=== PATIENT | female | born 1940 | race Caucasian/White ===

== ENCOUNTER → 2016-04-19 | Outpatient (REF) | payer MEDICARE, OTHER ==
[~2016-04-19] MED LIST: ASPI81TA85 PO; CIPR500S PO; FLAG500T PO; IRON65TA PO; MULT1TAB8 PO; NORC5TAB PO; RANI15TA PO; VITA100066 PO
[2016-04-19 12:46] LABS: ALBUMIN 4.3 GM/DL (3.2-5.2); ALBUMIN/GLOBULIN RATIO 1.54 (1.00-1.93); ALKALINE PHOSPHATASE 72 U/L (45-117); ALT/SGPT 26 U/L (12-78); ANION GAP 9 MEQ/L (8-16); AST/SGOT 15 U/L (15-37); BILIRUBIN,TOTAL 0.4 MG/DL (0.2-1.0); BLOOD UREA NITROGEN 14 MG/DL (7-18); CALCIUM LEVEL 9.3 MG/DL (8.8-10.2); CARBON DIOXIDE LEVEL 28 MEQ/L (21-32); CHLORIDE LEVEL 107 MEQ/L (98-107); CHOLESTEROL LEVEL 243 MG/DL (<200); CREATININE FOR GFR 0.69 MG/DL (0.55-1.02); GLOMERULAR FILTRATION RATE > 60.0 (>39); GLUCOSE, FASTING 106 MG/DL (83-110); POTASSIUM SERUM 4.5 MEQ/L (3.5-5.1); SODIUM LEVEL 144 MEQ/L (136-145); TOTAL PROTEIN 7.1 GM/DL (6.4-8.2); TRIGLYCERIDES LEVEL 437 MG/DL (<150)
== END ==
LOC: M LABDRAW1 11:48
PROVIDERS: ATTEND Physician Assistant
DX: R73.01 Impaired fasting glucose (principal); E78.2 Mixed hyperlipidemia

== ENCOUNTER → 2016-07-13 | Outpatient (REF) | payer MEDICARE, OTHER ==
[~2016-07-13] MED LIST changes: +NORC1TAB4 PO; -NORC5TAB PO
[2016-07-13 13:02] LABS: ALBUMIN 4.1 GM/DL (3.2-5.2); ALBUMIN/GLOBULIN RATIO 1.32 (1.00-1.93); ALKALINE PHOSPHATASE 74 U/L (45-117); ALT/SGPT 32 U/L (12-78); ANION GAP 7 MEQ/L (8-16); AST/SGOT 16 U/L (15-37); BILIRUBIN,TOTAL 0.4 MG/DL (0.2-1.0); BLOOD UREA NITROGEN 11 MG/DL (7-18); CALCIUM LEVEL 8.7 MG/DL (8.8-10.2); CARBON DIOXIDE LEVEL 28 MEQ/L (21-32); CHLORIDE LEVEL 107 MEQ/L (98-107); CHOLESTEROL LEVEL 172 MG/DL (<200); GLOMERULAR FILTRATION RATE > 60.0 (>39); GLUCOSE, FASTING 100 MG/DL (83-110); POTASSIUM SERUM 4.1 MEQ/L (3.5-5.1); SODIUM LEVEL 142 MEQ/L (136-145); TOTAL PROTEIN 7.2 GM/DL (6.4-8.2); TRIGLYCERIDES LEVEL 273 MG/DL (<150)
== END ==
LOC: M LABDRAW1 12:06
PROVIDERS: ATTEND Physician Assistant
DX: E78.2 Mixed hyperlipidemia (principal)

== ENCOUNTER → 2016-08-06 | Outpatient (CLI) | payer MEDICARE, OTHER ==
--- NOTE | 2016-08-06 16:27 | REPMRS ---
Patient History The patient states she has not had a clinical breast exam in over a year. Patient is postmenopausal and is nulliparous. No known family history of cancer. Digital Woman Screen Mammo: August 06, 2016 - Exam #: [id number] Bilateral CC and MLO view(s) were taken. Technologist: Waleska Lu, Technologist Prior study comparison: July 01, 2015, digital woman screen mammo performed at [facility]. June 29, 2014, digital woman screen mammo performed at [facility]. FINDINGS: The breast tissue is heterogeneously dense. This may lower the sensitivity of mammography. There has been no change in the appearance of the mammogram from the prior studies. There is a moderate amount of residual fibroglandular tissue which is fairly symmetric. There is no interval development of dominant mass, areas of architectural distortion, or clustered microcalcification typical of malignancy. ASSESSMENT: BI-RADS/ACR category 1 mammogram. Negative. Recommendation Routine screening mammogram in 1 year (for women over age 40). This mammogram was interpreted with the aid of an FDA-approved computer-aided dectection system. Electronically Signed By: Arik Calvillo MD 08/06/16 7197
== END ==
LOC: M WHC 14:26
PROVIDERS: ATTEND Physician Assistant
DX: Z12.31 Encounter for screening mammogram for malignant neoplasm of breast (principal)

== ENCOUNTER → 2016-11-21 | Outpatient (CLI) | payer MEDICARE, OTHER ==
--- NOTE | 2016-11-23 09:41 | DEXA ---
AP SPINE L1 - L4 1.146 -0.4 1.4 LT FEMUR TOTAL 0.862 -1.2 0.7 RT FEMUR TOTAL 0.810 -1.6 0.2 TOTAL BODY TOTAL OTHER DUAL FEMUR FRAX* ASSESSMENT Risk factors: Not done. 10 year probability of fracture Major osteoporotic fracture % Hip fracture % COMMENTS: Normal bone densitometry of the spine. There is low bone density of the left hip. There is osteoporosis of the right hip. The decreased density of the spine does represent a significant change. The decreased density of the left hip does represent a significant change. The decreased density of the right hip does represent a significant change. The density of the spine has increased 4.3% since the initial exam on 1998. The spine density has decreased 3.6% since the most recent exam on 06/18/2013. The density of the left hip has decreased 10.0% since the initial exam on 1998. The density of the left hip has decreased 2.5% since the most recent exam on . The density of the right hip has decreased 5.4% since the initial exam on 1998. The density of the right hip has decreased 3.7% since the most recent exam on . FOLLOW-UP: Recommendation for the next bone density exam: 2 years. ROME
== END ==
LOC: M WHC 10:09
PROVIDERS: ATTEND Physician Assistant
DX: Z13.820 Encounter for screening for osteoporosis (principal)

== ENCOUNTER → 2017-01-15 | Outpatient (CLI) | payer MEDICARE, OTHER ==
[2017-01-15 10:37] LABS: ALBUMIN 4.2 GM/DL (3.2-5.2); ALBUMIN/GLOBULIN RATIO 1.45 (1.00-1.93); ALKALINE PHOSPHATASE 75 U/L (45-117); ALT/SGPT 31 U/L (12-78); ANION GAP 8 MEQ/L (8-16); AST/SGOT 14 U/L (7-37); BILIRUBIN,TOTAL 0.5 MG/DL (0.2-1.0); BLOOD UREA NITROGEN 14 MG/DL (7-18); CALCIUM LEVEL 9.7 MG/DL (8.8-10.2); CARBON DIOXIDE LEVEL 27 MEQ/L (21-32); CHLORIDE LEVEL 108 MEQ/L (98-107); CHOLESTEROL LEVEL 176 MG/DL (<200); CREATININE FOR GFR 0.67 MG/DL (0.55-1.02); GLOMERULAR FILTRATION RATE > 60.0 (>39); GLUCOSE, FASTING 107 MG/DL (83-110); POTASSIUM SERUM 4.3 MEQ/L (3.5-5.1); SODIUM LEVEL 143 MEQ/L (136-145); TOTAL PROTEIN 7.1 GM/DL (6.4-8.2); TRIGLYCERIDES LEVEL 235 MG/DL (<150)
== END ==
LOC: M LABDRAW1 08:30
PROVIDERS: ATTEND Physician Assistant
DX: E78.2 Mixed hyperlipidemia (principal)

== ENCOUNTER → 2017-05-27 | Outpatient (CLI) | payer MEDICARE, OTHER | LOC: M RAD 09:52 | DX: M51.36 Other intervertebral disc degeneration, lumbar region (principal) | CPT/HCPCS: 72148 ==

== ENCOUNTER → 2017-08-01 | Outpatient (REF) | payer MEDICARE, OTHER ==
[2017-08-01 15:07] LABS: ANION GAP 5 MEQ/L (8-16); BLOOD UREA NITROGEN 18 MG/DL (7-18); CALCIUM LEVEL 9.3 MG/DL (8.8-10.2); CARBON DIOXIDE LEVEL 28 MEQ/L (21-32); CHLORIDE LEVEL 109 MEQ/L (98-107); GLOMERULAR FILTRATION RATE > 60.0 (>39); GLUCOSE, FASTING 101 MG/DL (70-100); SODIUM LEVEL 142 MEQ/L (136-145)
[2017-08-02 09:48] LABS: TOTAL 25(OH) VITAMIN D 34.7 NG/ML (30.0-100.0)
== END ==
LOC: M LAB REF 14:36
DX: M81.0 Age-related osteoporosis without current pathological fracture (principal)
CPT/HCPCS: 82306

== ENCOUNTER → 2017-08-20 | Outpatient (CLI) | payer MEDICARE, OTHER | LOC: M WHC 12:57 | DX: Z12.31 Encounter for screening mammogram for malignant neoplasm of breast (principal) | CPT/HCPCS: 77067 ==

== ENCOUNTER → 2017-11-29 | Outpatient (REF) | payer MEDICARE, OTHER ==
[2017-11-29 12:15] LABS: ALBUMIN 4.4 GM/DL (3.2-5.2); ALBUMIN/GLOBULIN RATIO 1.29 (1.00-1.93); ALKALINE PHOSPHATASE 76 U/L (45-117); ALT/SGPT 31 U/L (12-78); ANION GAP 9 MEQ/L (8-16); AST/SGOT 18 U/L (7-37); BILIRUBIN,TOTAL 0.6 MG/DL (0.2-1.0); BLOOD UREA NITROGEN 16 MG/DL (7-18); CALCIUM LEVEL 9.3 MG/DL (8.8-10.2); CARBON DIOXIDE LEVEL 26 MEQ/L (21-32); CHLORIDE LEVEL 105 MEQ/L (98-107); CHOLESTEROL LEVEL 173 MG/DL (<200); CHOLESTEROL RISK RATIO 3.203 (<5); CREATININE FOR GFR 0.79 MG/DL (0.55-1.30); FREE T4 0.96 NG/DL (0.76-1.46); GLOMERULAR FILTRATION RATE > 60.0 (>39); GLUCOSE, FASTING 107 MG/DL (70-100); HDL CHOLESTEROL 54 MG/DL (>40); LDL CHOLESTEROL 71 MG/DL (<100); NON-HDL-C 119 MG/DL; POTASSIUM SERUM 4.5 MEQ/L (3.5-5.1); SODIUM LEVEL 140 MEQ/L (136-145); TOTAL PROTEIN 7.8 GM/DL (6.4-8.2); TRIGLYCERIDES LEVEL 240 MG/DL (<150)
== END ==
LOC: M SFHCPLAZ 08:48
DX: E78.2 Mixed hyperlipidemia (principal)
CPT/HCPCS: 84443

== ENCOUNTER → 2018-03-31 | Outpatient (REF) | payer MEDICARE, OTHER ==
[~2018-03-31] MED LIST changes: +CARA1TAB6 PO; +LORA-243 PO; +PROT1TAB2 PO
[2018-03-31 14:24] LABS: BLOOD UREA NITROGEN 18 MG/DL (7-18); CALCIUM LEVEL 9.3 MG/DL (8.8-10.2); CARBON DIOXIDE LEVEL 25 MEQ/L (21-32); CHLORIDE LEVEL 107 MEQ/L (98-107); CHOLESTEROL LEVEL 206 MG/DL (<200); CHOLESTEROL RISK RATIO 3.814 (<5); CREATININE FOR GFR 0.68 MG/DL (0.55-1.30); GLOMERULAR FILTRATION RATE > 60.0 (>39); GLUCOSE, FASTING 118 MG/DL (70-100); HDL CHOLESTEROL 54 MG/DL (>40); LDL CHOLESTEROL 93 MG/DL (<100); NON-HDL-C 152 MG/DL; POTASSIUM SERUM 4.5 MEQ/L (3.5-5.1); SODIUM LEVEL 139 MEQ/L (136-145); TRIGLYCERIDES LEVEL 297 MG/DL (<150)
[2018-03-31 14:52] LABS: HEMOGLOBIN A1c 6.4 %
== END ==
LOC: M SFHCPLAZ 11:07
PROVIDERS: ATTEND Family Medicine
DX: R73.01 Impaired fasting glucose (principal); E78.2 Mixed hyperlipidemia
CPT/HCPCS: 36415; 80048; 80061; 83036; G0463

== ENCOUNTER 2018-04-09 15:10 | Emergency (ER) | payer MEDICARE, OTHER ==
[~2018-04-09] VITALS: Ht 144.8 cm; Wt 52.3 kg
[~2018-04-09 15:10] MED LIST changes: -CARA1TAB6 PO; -LORA-243 PO; -PROT1TAB2 PO
[2018-04-09] MEDS ORDERED: LORA-243 PO (15:40)
[2018-04-09] MEDS ORDERED: GI COCKTAIL 50ML BTL(HYOSCYAMINE/MAALOX/LIDOCAINE VISCOUS)(1:3:1) PO ONE (15:45)
[2018-04-09] MEDS ORDERED: PANTOPRAZOLE 40MG INJ (PROTONIX) (C9113) IV ONE (15:45)
[2018-04-09 16:12] LABS: BASO % 0.5 % (0.0-1.0); EOS # 0.1 10^3/uL (0.0-0.50); EOS % 0.9 % (0.0-3.0); HEMATOCRIT 38.3 % (36.0-47.0); HEMOGLOBIN 12.7 g/dl (12.0-15.5); LYMPH # 1.8 10^3/uL (1.5-4.5); MEAN CORPUSCULAR HGB CONC 33.2 g/dl (32.0-36.5); MEAN CORPUSCULAR VOLUME 90.5 fl (80.0-96.0); MONO # 0.5 10^3/uL (0.0-0.8); MONO % 7.2 % (0.0-5.0); NEUTROPHILS # 4.2 10^3/uL (1.8-7.7); NEUTROPHILS % 64.1 % (36.0-66.0); PLATELET COUNT, AUTOMATED 252 10^3/uL (150-450); RED BLOOD COUNT 4.23 10^6/uL (4.00-5.40); WHITE BLOOD COUNT 6.5 10^3/uL (4.0-10.0)
[2018-04-09 16:23] LABS: INR 0.96; PROTHROMBIN TIME 12.9 SECONDS (12.1-14.4)
[2018-04-09 16:24] LABS: PARTIAL THROMBOPLASTIN TIME 33.6 SECONDS (25.4-37.6)
[2018-04-09 16:47] LABS: ALBUMIN 4.6 GM/DL (3.2-5.2); ALT/SGPT 31 U/L (12-78); BILIRUBIN,DIRECT 0.1 MG/DL (0.0-0.2); BILIRUBIN,TOTAL 0.4 MG/DL (0.2-1.0); BLOOD UREA NITROGEN 16 MG/DL (7-18); CALCIUM LEVEL 9.2 MG/DL (8.8-10.2); CARBON DIOXIDE LEVEL 25 MEQ/L (21-32); CHLORIDE LEVEL 107 MEQ/L (98-107); CK-MB VALUE MASS < 1.0 NG/ML (<3.6); CPK CREATINE PHOSPHOKINASE 87 U/L (26-192); CREATININE FOR GFR 0.73 MG/DL (0.55-1.30); GLOMERULAR FILTRATION RATE > 60.0 (>39); GLUCOSE, FASTING 101 MG/DL (70-100); MB/CK RELATIVE INDEX 1.15 (< OR =4); POTASSIUM SERUM 3.9 MEQ/L (3.5-5.1); SODIUM LEVEL 140 MEQ/L (136-145); TOTAL PROTEIN 7.5 GM/DL (6.4-8.2); TROPONIN I < 0.02 NG/ML (< 0.10)
--- NOTE | 2018-04-09 17:21 | REP ---
CHEST, SINGLE VIEW: Single view of the chest is performed. COMPARISON: 02/05/2015. There is mild cardiomegaly. There is mild tortuosity of the thoracic aorta. The mediastinal silhouette is unchanged. I see no acute infiltrate or pulmonary edema. IMPRESSION: Mild cardiomegaly. No acute pulmonary disease. Electronically Signed by Arik Calvillo MD 04/09/2018 08:19 P
--- NOTE | 2018-04-09 17:23 | ECGEPIP ---
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
[2018-04-09] MEDS ORDERED: PROT1TAB2 PO (17:44)
[2018-04-09] MEDS ORDERED: CARA1TAB6 PO (17:44)
[2018-04-09 18:56] VITALS: BP 150/82
== END 2018-04-09 18:58 | disposition home or self-care (01) ==
LOC: M ED 15:10
DX: K21.0 Gastro-esophageal reflux disease with esophagitis (principal); R11.0 Nausea; I50.9 Heart failure, unspecified; E78.5 Hyperlipidemia, unspecified; G47.33 Obstructive sleep apnea (adult) (pediatric); K44.9 Diaphragmatic hernia without obstruction or gangrene; R01.1 Cardiac murmur, unspecified; Z88.8 Allergy status to other drugs, medicaments and biological substances; Z79.899 Other long term (current) drug therapy
CPT/HCPCS: 71045; 80048; 80076; 82550; 82553; 84443; 84484; 85025; 85610; 85730; 93005; 93041; 94760; 96374; 99285; C9113

== ENCOUNTER → 2018-06-18 | Outpatient (REF) | payer MEDICARE, OTHER ==
[~2018-06-18] MED LIST changes: +CARA1TAB6 PO; +LORA-243 PO; -NORC1TAB4 PO; +NORC1TAB7 PO; +PROT1TAB2 PO
[2018-06-18 16:14] LABS: CALCIUM LEVEL 9.1 MG/DL (8.8-10.2)
[2018-06-18 16:28] LABS: TOTAL 25(OH) VITAMIN D 34.2 NG/ML (30.0-100.0)
== END ==
LOC: M LABDRAWP 13:21
PROVIDERS: ATTEND Nurse Practitioner Family
DX: M81.0 Age-related osteoporosis without current pathological fracture (principal)

== ENCOUNTER → 2018-09-24 | Outpatient (REF) | payer MEDICARE, OTHER ==
[~2018-09-24] MED LIST changes: +FERR325T3 PO; +LIPI10TA PO; +PROL60SO SC
[2018-09-24 13:02] LABS: ALBUMIN 4.4 GM/DL (3.2-5.2); ALT/SGPT 37 U/L (12-78); BILIRUBIN,TOTAL 0.4 MG/DL (0.2-1.0); BLOOD UREA NITROGEN 18 MG/DL (7-18); CALCIUM LEVEL 9.7 MG/DL (8.8-10.2); CARBON DIOXIDE LEVEL 27 MEQ/L (21-32); CHLORIDE LEVEL 108 MEQ/L (98-107); CREATININE FOR GFR 0.83 MG/DL (0.55-1.30); GLOMERULAR FILTRATION RATE > 60.0 (>39); GLUCOSE, FASTING 110 MG/DL (70-100); POTASSIUM SERUM 4.3 MEQ/L (3.5-5.1); SODIUM LEVEL 141 MEQ/L (136-145); TOTAL PROTEIN 7.7 GM/DL (6.4-8.2)
== END ==
LOC: M SFHCPLAZ 09:13
PROVIDERS: ATTEND Family Medicine
DX: R73.01 Impaired fasting glucose (principal)

== ENCOUNTER 2018-09-30 06:37 | Day surgery (SDC) | payer MEDICARE, OTHER ==
[~2018-09-30] VITALS: Ht 144.8 cm; Wt 51.3 kg
[~2018-09-30 06:37] MED LIST changes: +NS 1,000 ML IV ONE
[2018-09-30] MEDS ORDERED: propofoL 200 MG/20 ML VIAL As Ordered ONE ×2 (07:43→07:53)
[2018-09-30] MEDS ORDERED: LIDOCAINE 2% INJ 100 MG/5 ML SDV (FOR ANES.) As Ordered ONE (07:43)
--- NOTE | 2018-09-30 08:00 | ROOR ---
Patient Name: Cristina Valles Procedure Date: 09/30/2018 7:33 AM Date of : 1940 Age: 78 Room: [facility] Gender: Female Note Status: Finalized Procedure: Total Colonoscopy to Cecum + Biopsy Polypectomy Indications: High risk colon cancer surveillance: Personal history of colonic polyps, Last colonoscopy: 2012 Providers: Kayode Greenberg MD Referring MD: Stephen PIKE MD Requesting Provider: Medicines: Monitored Anesthesia Care Complications: No immediate complications. Procedure: Pre-Anesthesia Assessment: - The heart rate, respiratory rate, oxygen saturations, blood pressure, adequacy of pulmonary ventilation, and response to care were monitored throughout the procedure. The Colonoscope was introduced through the anus and advanced to the cecum, identified by appendiceal orifice and ileocecal valve. The colonoscopy was performed without difficulty. The patient tolerated the procedure well. The quality of the bowel preparation was excellent. Findings: The perianal and digital rectal examinations were normal. Non-bleeding internal hemorrhoids were found during retroflexion. The hemorrhoids were small and Grade I (internal hemorrhoids that do not prolapse). Multiple sessile polyps were found in the cecum. The polyps were small in size. These polyps were removed with a jumbo cold forceps. Resection and retrieval were complete. The exam was otherwise without abnormality on direct and retroflexion views. Scattered small-mouthed diverticula were found in the recto-sigmoid colon, sigmoid colon and descending colon. Impression: - Non-bleeding internal hemorrhoids. - Multiple small polyps in the cecum, removed with a jumbo cold forceps. Resected and retrieved. - The examination was otherwise normal on direct and retroflexion views. - Diverticulosis in the recto-sigmoid colon, in the sigmoid colon and in the descending colon. - The exam was otherwise normal to the cecum. Recommendation: - Patient has a contact number available for emergencies. The signs and symptoms of potential delayed complications were discussed with the patient. Return to normal activities tomorrow. Written discharge instructions were provided to the patient. - High fiber diet. - Discharge patient to home. - Continue present medications. - Await pathology results. - Telephone GI clinic for pathology results in 1 week. - Repeat colonoscopy for symptoms only. - Return to referring physician. - The findings and recommendations were discussed with the patient's family. Kayode Greenberg MD Kayode Greenberg MD 09/30/2018 7:59:38 AM Electronically signed by Kayode Greenberg MD Number of Addenda: 0 Note Initiated On: 09/30/2018 7:33 AM Estimated Blood Loss: Estimated blood loss: none.
[2018-09-30 08:30] VITALS: BP 140/72
== END 2018-09-30 08:40 | disposition home or self-care (01) ==
LOC: M OPP 06:37
PROVIDERS: ATTEND Internal Medicine Gastroenterology
DX: D12.0 Benign neoplasm of cecum (principal); K57.30 Diverticulosis of large intestine without perforation or abscess without bleeding; K64.0 First degree hemorrhoids; Z86.010 Personal history of colon polyps

== ENCOUNTER → 2018-10-07 | Outpatient (CLI) | payer MEDICARE, OTHER ==
[~2018-10-07] MED LIST changes: -NS 1,000 ML IV ONE
--- NOTE | 2018-10-07 12:19 | REPMRS ---
Patient History The patient states she has not had a clinical breast exam in over a year. No known family history of cancer. Digital Woman Screen Mammo: October 07, 2018 - Exam #: [id number] Bilateral CC and MLO view(s) were taken. Technologist: Waleska Lu, Technologist Prior study comparison: August 20, 2017, bilateral digital woman screen mammo performed at [facility]. August 06, 2016, digital woman screen mammo performed at [facility]. July 01, 2015, digital woman screen mammo performed at [facility]. FINDINGS: The breast tissue is heterogeneously dense. This may lower the sensitivity of mammography. There is a moderate amount of heterogeneously dense fibroglandular tissue which is fairly symmetric. There is no interval development of dominant mass, architectural distortion, or grouped microcalcification typical of malignancy. There has been no change in the appearance of the mammogram from the prior studies. 3-D tomosynthesis shows no additional findings. Assessment: BI-RADS/ACR category 1 mammogram. Negative Mammogram. Recommendation Routine screening mammogram of both breasts in 1 year (for women over age 40). This patient's Lifetime Breast Cancer RIsk is estimated at 3.0 %. This mammogram was interpreted with the aid of an FDA-approved computer-aided dectection system. Electronically Signed By: Cristi Flores MD 10/07/18 6503
== END ==
LOC: M WHC 09:18
PROVIDERS: ATTEND Family Medicine
DX: Z12.31 Encounter for screening mammogram for malignant neoplasm of breast (principal)

== ENCOUNTER → 2018-12-01 | Outpatient (REF) | payer MEDICARE, OTHER ==
[2018-12-01 13:11] LABS: HEMOGLOBIN A1c 6.1 %
== END ==
LOC: M SFHCPLAZ 09:35
PROVIDERS: ATTEND Family Medicine
DX: R73.03 Prediabetes (principal)

== ENCOUNTER → 2018-12-31 | Outpatient (REF) | payer MEDICARE, OTHER ==
[2018-12-31 11:57] LABS: CALCIUM LEVEL 10.8 MG/DL (8.8-10.2)
== END ==
LOC: M LABDRAWP 09:17
PROVIDERS: ATTEND Nurse Practitioner Family
DX: M81.0 Age-related osteoporosis without current pathological fracture (principal)

== ENCOUNTER → 2019-08-20 | Outpatient (CLI) | payer MEDICARE, OTHER ==
[~2019-08-20] MED LIST changes: -ASPI81TA85 PO; +ASPI81TA86 PO
[2019-08-20 11:05] LABS: BLOOD UREA NITROGEN 19 MG/DL (7-18); CALCIUM LEVEL 9.8 MG/DL (8.8-10.2); CARBON DIOXIDE LEVEL 28 MEQ/L (21-32); CHLORIDE LEVEL 107 MEQ/L (98-107); CHOLESTEROL LEVEL 191 MG/DL (<200); CHOLESTEROL RISK RATIO 3.673 (<5); GLOMERULAR FILTRATION RATE > 60.0 (>39); GLUCOSE, FASTING 106 MG/DL (70-100); HDL CHOLESTEROL 52 MG/DL (>40); LDL CHOLESTEROL 73 MG/DL (<100); NON-HDL-C 139 MG/DL; POTASSIUM SERUM 4.6 MEQ/L (3.5-5.1); SODIUM LEVEL 141 MEQ/L (136-145); TRIGLYCERIDES LEVEL 328 MG/DL (<150)
== END ==
LOC: M PLALAB 08:13
PROVIDERS: ATTEND Physician Assistant
DX: E78.2 Mixed hyperlipidemia (principal)
CPT/HCPCS: 36415; 80048; 80061; G0463

== ENCOUNTER → 2019-12-11 | Outpatient (CLI) | payer MEDICARE, OTHER ==
--- NOTE | 2019-12-11 10:42 | REPMRS ---
Patient History No known family history of cancer. Digital Woman Screen Mammo: December 11, 2019 - Exam #: [id number] Bilateral CC and MLO view(s) were taken. Technologist: Lisa Wolff, Technologist Prior study comparison: October 07, 2018, bilateral digital woman screen mammo performed at [facility]. August 20, 2017, bilateral digital woman screen mammo performed at [facility]. August 06, 2016, digital woman screen mammo performed at [facility]. FINDINGS: There are scattered fibroglandular densities. The Volpara volumetric breast density category is:B. There has been no change in the appearance of the mammogram from the prior studies. There is a mild amount of scattered fibroglandular density which is fairly symmetric. There is no interval development of dominant mass, architectural distortion, or grouped microcalcification suggestive of malignancy. 3-D tomosynthesis shows no additional findings. Assessment: BI-RADS/ACR category 1 mammogram. Negative Mammogram. Recommendation Routine screening mammogram of both breasts in 1 year (for women over age 40). This patient's Lifetime Breast Cancer Risk is estimated at 2.6 %. This mammogram was interpreted with the aid of an FDA-approved computer-aided dectection system. Electronically Signed By: Cristi Flores MD 12/11/19 3292
== END ==
LOC: M WHC 09:48
PROVIDERS: ATTEND Family Medicine
DX: Z12.31 Encounter for screening mammogram for malignant neoplasm of breast (principal)

== ENCOUNTER → 2019-12-24 | Outpatient (REF) | payer MEDICARE, OTHER ==
[2019-12-24 14:02] LABS: ALBUMIN 4.3 GM/DL (3.2-5.2); ALT/SGPT 36 U/L (12-78); BILIRUBIN,TOTAL 0.6 MG/DL (0.2-1.0); BLOOD UREA NITROGEN 17 MG/DL (7-18); CALCIUM LEVEL 9.8 MG/DL (8.8-10.2); CARBON DIOXIDE LEVEL 29 MEQ/L (21-32); CHLORIDE LEVEL 107 MEQ/L (98-107); CHOLESTEROL LEVEL 158 MG/DL (<200); CHOLESTEROL RISK RATIO 2.724 (<5); GLOMERULAR FILTRATION RATE > 60.0 (>39); GLUCOSE, FASTING 112 MG/DL (70-100); HDL CHOLESTEROL 58 MG/DL (>40); LDL CHOLESTEROL 47 MG/DL (<100); NON-HDL-C 100 MG/DL; POTASSIUM SERUM 4.4 MEQ/L (3.5-5.1); SODIUM LEVEL 141 MEQ/L (136-145); TOTAL PROTEIN 7.7 GM/DL (6.4-8.2); TRIGLYCERIDES LEVEL 264 MG/DL (<150)
== END ==
LOC: M PLALAB 09:48
PROVIDERS: ATTEND Family Medicine
DX: E78.2 Mixed hyperlipidemia (principal); R73.01 Impaired fasting glucose

== ENCOUNTER → 2020-06-27 | Outpatient (REF) | payer MEDICARE, OTHER ==
[2020-06-27 15:38] LABS: BLOOD UREA NITROGEN 16 MG/DL (7-18); CALCIUM LEVEL 10.8 MG/DL (8.8-10.2); CARBON DIOXIDE LEVEL 28 MEQ/L (21-32); CHLORIDE LEVEL 105 MEQ/L (98-107); CREATININE FOR GFR 0.69 MG/DL (0.55-1.30); GLOMERULAR FILTRATION RATE > 60.0 (>32); GLUCOSE, FASTING 141 MG/DL (70-100); POTASSIUM SERUM 4.3 MEQ/L (3.5-5.1); SODIUM LEVEL 140 MEQ/L (136-145)
== END ==
LOC: M SFHCPLAZ 13:12 → M PLALAB 13:12
PROVIDERS: ATTEND Family Medicine
DX: R73.01 Impaired fasting glucose (principal)

== ENCOUNTER → 2020-06-27 | Outpatient (REF) | payer MEDICARE, OTHER ==
[2020-06-27 15:36] LABS: CALCIUM LEVEL 11.1 MG/DL (8.8-10.2)
[2020-06-27 15:41] LABS: TOTAL 25(OH) VITAMIN D 27.3 NG/ML (30.0-100.0)
== END ==
LOC: M PLALAB 13:13
PROVIDERS: ATTEND Internal Medicine Endocrinology, Diabetes & Metabolism
DX: E55.9 Vitamin D deficiency, unspecified (principal); R73.01 Impaired fasting glucose; Z79.899 Other long term (current) drug therapy

== ENCOUNTER → 2020-06-30 | Outpatient (REF) | payer MEDICARE, OTHER ==
[2020-06-30 13:08] LABS: HEMOGLOBIN A1c 6.3 %
[2020-06-30 13:35] LABS: BLOOD UREA NITROGEN 19 MG/DL (7-18); CALCIUM LEVEL 10.1 MG/DL (8.8-10.2); CARBON DIOXIDE LEVEL 25 MEQ/L (21-32); CHLORIDE LEVEL 109 MEQ/L (98-107); CREATININE FOR GFR 0.66 MG/DL (0.55-1.30); GLOMERULAR FILTRATION RATE > 60.0 (>32); GLUCOSE, FASTING 110 MG/DL (70-100); POTASSIUM SERUM 4.3 MEQ/L (3.5-5.1); PTH INTACT 29.3 PG/ML (18.5-88.0); SODIUM LEVEL 140 MEQ/L (136-145); TOTAL 25(OH) VITAMIN D 37.3 NG/ML (30.0-100.0)
== END ==
LOC: M SFHCPLAZ 10:11
PROVIDERS: ATTEND Family Medicine
DX: R73.01 Impaired fasting glucose (principal); E83.52 Hypercalcemia
CPT/HCPCS: 36415; 80048; 82306; 83036; 83970; G0463

== ENCOUNTER → 2020-09-05 | Outpatient (CLI) | payer MEDICARE, OTHER ==
[2020-09-05 13:41] LABS: BLOOD UREA NITROGEN 13 MG/DL (7-18); CALCIUM LEVEL 9.4 MG/DL (8.8-10.2); CARBON DIOXIDE LEVEL 31 MEQ/L (21-32); CHLORIDE LEVEL 107 MEQ/L (98-107); CREATININE FOR GFR 0.73 MG/DL (0.55-1.30); GLOMERULAR FILTRATION RATE > 60.0 (>32); GLUCOSE, FASTING 103 MG/DL (70-100); POTASSIUM SERUM 4.2 MEQ/L (3.5-5.1); SODIUM LEVEL 141 MEQ/L (136-145)
[2020-09-05 13:49] LABS: PTH INTACT 34.6 PG/ML (18.5-88.0)
== END ==
LOC: M PLALAB 10:05
PROVIDERS: ATTEND Internal Medicine Endocrinology, Diabetes & Metabolism
DX: E83.52 Hypercalcemia (principal)

== ENCOUNTER → 2020-12-16 | Outpatient (CLI) | payer MEDICARE, OTHER ==
--- NOTE | 2020-12-16 15:54 | REPMRS ---
Patient History The patient states she has not had a clinical breast exam in over a year. Patient is postmenopausal and is nulliparous. No known family history of cancer. No Hormone Replacement Therapy Patient states no breast complaints today. Patient has signed MRS History Sheet. Digital Woman Screen Mammo: December 16, 2020 - Exam #: [id number] Bilateral CC and MLO view(s) were taken. Technologist: Susan oWng Undertaker Assistant Prior study comparison: December 11, 2019, bilateral digital woman screen mammo performed at [facility]. October 07, 2018, bilateral digital woman screen mammo performed at [facility]. FINDINGS: The breast tissue is heterogeneously dense. This may lower the sensitivity of mammography. Screening. Digital screening (2D) mammography was performed bilaterally in the CC and MLO projections. Additionally, breast tomosynthesis (3D mammography) was performed bilaterally in the CC and MLO projections. Todays exam was compared to the prior exam/exams. By history, the patient has no complaints of a palpable breast abnormality or other significant breast complaints. The breasts are unchanged in size and shape.Once again, dense heterogenous fibroglandular elements are seen bilaterally in a stable appearing pattern but to such a degree that the sensitivity of the mammogram in detecting cancer is decreased. There are no fariha-soft tissue densities or spiculated masses. There is no internal architectural distortion. Once again, stable benign appearing calcifications are seen.There are no suspicious fariha-calcific clusters. Skin thickening or nipple retraction is not present. IMPRESSION: BI-RADS Category 2- Benign Findings. There is no evidence of malignant alteration of the breasts. Followup examination recommended in one year. The Volpara volumetric breast density category is C, the breasts are heterogenously dense which may obscure small masses. This mammogram was read with the assistance of [employer],an FDA approved computer aided detection system for mammography. The lifetime Tyrer-Cuzick score is 2.2 % Negative x-ray reports should not delay surgical consultation if a dominant or clinically suspicious mass is present. Not all breast cancers can be identified by mammography. Therefore, we recommend that you continue to perform regular breast self-examination and physical examination and then promptly contact your physician of any concerns or changes. Adenosis and dense breasts may obscure an underlying neoplasm. Assessment: BI-RADS/ACR category 2 mammogram. Benign Findings. Recommendation Routine screening mammogram of both breasts in 1 year. Electronically Signed By: Reji Ovalles DO 12/16/20 2334
== END ==
LOC: M WHC 15:09
PROVIDERS: ATTEND Family Medicine
DX: Z12.31 Encounter for screening mammogram for malignant neoplasm of breast (principal); Z78.0 Asymptomatic menopausal state

== ENCOUNTER → 2020-12-29 | Outpatient (CLI) | payer MEDICARE, OTHER ==
[2020-12-29 11:05] LABS: ALBUMIN 3.9 GM/DL (3.2-5.2); ALT/SGPT 41 U/L (12-78); BILIRUBIN,TOTAL 0.4 MG/DL (0.2-1.0); BLOOD UREA NITROGEN 18 MG/DL (7-18); CALCIUM LEVEL 9.5 MG/DL (8.8-10.2); CARBON DIOXIDE LEVEL 28 MEQ/L (21-32); CHLORIDE LEVEL 109 MEQ/L (98-107); CHOLESTEROL LEVEL 169 MG/DL (<200); CHOLESTEROL RISK RATIO 2.725 (<5); CREATININE FOR GFR 0.71 MG/DL (0.55-1.30); GLOMERULAR FILTRATION RATE > 60.0 (>32); GLUCOSE, FASTING 115 MG/DL (70-100); HDL CHOLESTEROL 62 MG/DL (>40); HEMOGLOBIN A1c 6.3 %; LDL CHOLESTEROL 81 MG/DL (<100); NON-HDL-C 107 MG/DL; POTASSIUM SERUM 4.9 MEQ/L (3.5-5.1); SODIUM LEVEL 140 MEQ/L (136-145); TOTAL PROTEIN 7.2 GM/DL (6.4-8.2); TRIGLYCERIDES LEVEL 129 MG/DL (<150)
== END ==
LOC: M PLALAB 09:03
PROVIDERS: ATTEND Family Medicine
DX: E78.2 Mixed hyperlipidemia (principal); R73.01 Impaired fasting glucose

== ENCOUNTER 2021-01-28 10:34 | Emergency (ER) | payer MEDICARE, OTHER ==
[~2021-01-28] VITALS: Ht 142.2 cm; Wt 51.5 kg
[2021-01-28 10:35] VITALS: BP 134/75
--- OUTSIDE RECORDS SUMMARY | 2021-01-28 10:43 | CCD | Continuity of Care Document ---
Author Author Cristina BREAUX Organization Unknown Address [address] [address] Phone [phone] Care Team Providers Care Electrician Control Equipment Name Role Phone Stephen Renae MD AUTM [phone] Kendra Underwood MD AUTM [phone] Problems Description No Information Available Social History Type Date Description Comments Sex Unknown Allergies, Adverse Reactions, Alerts Active Allergies Criticality Reaction | Severity Comments Date Aspirin Unable to assess criticality 07/14/2014 Medications Active Medications SIG Qnty Indications Ordering Provide r Date Zanaflex 4mg Tablets 1 by mouth three times a day 90tabs G57.01 Dejon Donato MD 05/16/[address] Table[address] 1 by mouth twice a day 90tabs G57.01 Dejon Donato MD 05/16/2017 Immunizations Description No Information Available Vital Signs Date Vital Result Comment 11/18/2020 9:18am Body Temperature 96.6 F Height 55 inches 4'7" Weight 112.25 lb BMI (Body Mass Index) 26.1 kg/m2 05/16/2017 3:19pm Body Temperature 98.4 F Height 56 inches 4'8" Weight 115.00 lb BMI (Body Mass Index) 25.8 kg/m2 Results Description No Information Available Procedures Date Code Description Status 11/18/2020 75238 Office/Outpatient Established Mo d MDM 30-39 Min Completed 11/18/2020 77011 X-Ray Hips Bilateral With Pelvis Minimum 5 Views Completed 11/18/2020 53839 X-Ray Spine Lumbosacral Complete Inc Bending Views Min Of 6 Completed 11/18/2020 11959 Inject/Drain Joint/Bursa Major C ompleted Medical Devices Description No Information Available Encounters Type Date Location Provider Dx Diagnosis Office Visit 11/18/2020 9:15a [place] Wendy Breaux PA-C M5 1.36 Other intervertebral disc degeneration, lumbar region M25.552 Pain in left hip M70.61 Trochanteric bursitis, right hip M70.62 Trochanteric bursitis, left hip Assessments Date Code Description Provider 11/18/2020 M51.36 Other intervertebral disc degene ration, lumbar region Wendy Breaux PA-C 11/18/2020 M25.552 Pain in left hip Wendy sesay PA-C 11/18/2020 M70.61 Trochanteric bursitis, right hip Wendy Breaux PA-C 11/18/2020 M70.62 Trochanteric bursitis, left hip Wendy Breaux PA-C Plan of Treatment Future Appointment(s):* 12/19/2020 10:45 am - Wendy Breaux PA-C at [place] 11/18/2020 - Wendy Breaux PA-C* M51.36 Other intervertebral disc degeneration, lumbar region * M25.552 Pain in left hip * M70.61 Trochanteric bursitis, right hip * M70.62 Trochanteric bursitis, left hip Functional Status Description No Information Available Mental Status Description No Information Available Referrals Description No Information Available
--- OUTSIDE RECORDS SUMMARY | 2021-01-28 10:43 | CCD ---
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 Active confirmed 029871584 Problem Hypercalcemia E83.52 Active confirmed 870162 09 Problem Impaired fasting glucose R73.01 Active confirmed 713249336 Problem Age-related osteoporosis without current pathological fracture M81.0 Active confirmed 53030773 Problem 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 Acti ve confirmed [id number] Problem COLT (obstructive sleep apnea) G47.33 Active confirm ed 63043594 ALLERGIES Allergen (clinical drug ingredient) Drug/Non Drug Allergy do cumented on EMR Reaction Allergy Type Onset Date Status Seasonal runny nose Non Drug Allergy Active ENCOUNTERS from 1940 to 2020-11-10 Encounter Location Date Provider Diagnosis [address] [phone] [place] [address] 16 Oct, 2020 Kendra Underwood Breast cancer screening by waldemar dorado Z12.31 IMMUNIZATIONS Vaccine Route Administration Date Status Influenza (High Dose 65 & up) Unknown Dec 10, 2017 Ad ministered Influenza 6mo & up Fluzone Unknown Nov 30, 2012 Admin istered Influenza 6mo & up Fluzone Unknown Dec 30, 2011 Admin istered SOCIAL HISTORY Tobacco Use: Social History Observation Description Date Details (start date - stop date) Never Smoker Sex Assigned At : Social History Observation Description Sex Assigned At Unknown Education: Question Answer Notes Level of Education: High School Audit Question Answer Notes Total Score: 0 Interpretation: Alcohol Education Language: Question Answer Notes Languages spoken: Kenyan japenesse Church: Question Answer Notes Church No judaism beliefs that would impact health care. Sexual Hx: Question Answer Notes Had sex in the last 12 months (vaginal, oral, or anal)? Yes with Men only Use protection? No Drug and Alcohol Question Answer Notes Total Score: 0 Interpretation: No problems reported Alcohol Screening: Question Answer Notes Did you have a drink containing alcohol in the past year? No Points 0 Interpretation Negative Tobacco Use: Question Answer Notes Are you a: never smoker REASON FOR REFERRAL No Information VITAL SIGNS No information MEDICATIONS Medication SIG (Take, Route, Frequency, Duration) Notes Start Da te End Date Status Oyster Calcium + D 500-125 MG-UNIT 1 tablet Orally Twice a day f or 30 day(s) Dec, Active Multi Complete - 1 tab Orally once daily for 90 days 2015 Active Tylenol 325 MG 1 tablet as needed Orally every 6 hrs Active Vitamin D-3 25 MCG (1000 UT) 1 capsule Orally Once a day for 90 day(s) Feb, Active Atorvastatin Calcium 40 MG 1 tablet Orally Once a day for 90 day s Jul, Active Prolia 60 MG/ML Subcutaneous every 6 months Ac tive Voltaren 1 % 2 g as needed Transdermal four times daily Dec, Active PROCEDURES No Information RESULTS No Results REASON FOR VISIT mammogram order MEDICAL (GENERAL) HISTORY Type Description Date Medical History Hiatal hernia, esophageal reflux Medical History Hx adenomatous colonic polyps, diverticu losis Medical History BCG vaccine in [place] - gets positive PPD as a result Medical History "Moderate Cardiomegaly" on S ER CXR, 04/15/2011 Echo 05/2011 Normal LV size and systolic function. mild Grade I diastolic dysfx. LA normal size mild aortic sclerosis; [facility], echo 07/2019 pending Medical History COLT - CPAP Medical History Impaired Fasting GLucose Medical History Hyperlipidemia Medical History Chronic Allergic Rhinnitis Medical History Osteoporosis - Dr. Deleon Medical History Foillows with REIMBURSEMENT REP annually Surgical History Left shoulder surgery 2002 Surgical History Colonoscopy 01/30, 04/06 (tubular adenoma s); normal 09/06 Surgical History Appendectomy 01/2015 Surgical History Colonoscopy - diverticulosis , small polyps; Dr. Greenberg; repeat fo rsymptoms only 09/2018 Goals Section No Information Health Concerns No Information MEDICAL EQUIPMENT No Information MENTAL STATUS No Information FUNCTIONAL STATUS No Information ASSESSMENTS Encounter Date Diagnosis Assessment Notes Treatment Notes Treatm ent Clinical Notes Oct, Breast cancer screening by mammogram (ICD-10 - Z 12.31) PLAN OF TREATMENT Medication Medication Name Sig Start Date Stop Date Voltaren 1 % 2 g as needed Transdermal four times daily 2019 Atorvastatin Calcium 40 MG 1 tablet Orally Once a day for 90 day s Jul, Future Test Test Name Order Date [facility] Jem Screening Bilateral (Ultrasound if Indicated ) (3D Mammo) 20201110 Next Appt Details Provider Name:Kendra Butler Derrellsandy, 2021-01-03 10:00:00 AM, [address], , [place], [address], Insurance Providers Payer Name Payer Address Payer Phone Insured Name Patient Relati onship to Insured Coverage Start Date Coverage End Date MEDICARE Part A and B [address] [facility] [id number] MARISSA QIU FOR LIFE [address] [employer] [id number] Jose Qiu
--- OUTSIDE RECORDS SUMMARY | 2021-01-28 10:43 | CCD | Continuity of Care Document ---
Author Author [facility] Organization Unknown Address [address] [place] [address] Phone [phone] Care Team Providers Care Fashion Intern Name Role Phone Kendra Underwood MD [facility] [phone] Problems Description No Information Available Social History Type Date Description Comments Sex Unknown Tobacco Use Start: Unknown Never Smoked Cigarettes ETOH Use Denies alcohol use Tobacco Use Start: Unknown Patient has never smoked Sun Exposure Has experienced blistering from sunburns Sun Exposure Uses 15-30 SPF Sun Exposure Has never used tanning bed Sun Exposure minimum amount of sun exposure Allergies, Adverse Reactions, Alerts Active Allergies Criticality Reaction | Severity Comments Date NKDA Unable to assess criticality 07/06/2020 Inactive Allergies Aspirin Unable to assess criticality 09/10/2007 Medications Active Medications SIG Qnty Indications Ordering Provide r Date Urea 40% Cream apply t o feet every day 85gm MATTHEW Waller 07/19/2020 Multivitamins Unknown Calcium Unknown Vitamin D Unknown Lipitor Unknown Aspirin Low Dose Unknown 00 Prolia 60mg/ml Solution Unknown Immunizations Description No Information Available Vital Signs Date Vital Result Comment 07/06/2020 10:14am BP Systolic 116 mmHg BP Diastolic 64 mmHg Weight 115.00 lb Body Temperature 96.2 F 12/02/2018 1:52pm BP Systolic 120 mmHg BP Diastolic 70 mmHg Results Description No Information Available Procedures Date Code Description Status 07/06/2020 18689 Office/Outpatient Established Mo d MDM 30-39 Min Completed 07/06/2020 68642 Destruction Of Lesions 2-14 Comp leted 07/06/2020 56579 Destruction Of Lesion First Comp leted Medical Devices Description No Information Available Encounters Type Date Location Provider Dx Diagnosis Office Visit 07/06/2020 10:30a Main Office Nehal S. LYOD Coppola L57.0 Actinic keratosis L81.4 Other melanin hyperpigmentat ion L82.1 Other seborrheic keratosis D18.01 Hemangioma of skin and subcu taneous tissue Z12.83 Encounter for screening for malignant neoplasm of skin Assessments Date Code Description Provider 09/06/2020 L98.8 Other specified disorders of the skin and subcutaneous tissue Enid Bean 09/06/2020 L98.8 Other specified disorders of the skin and subcutaneous tissue Cosmetic Consultation 07/06/2020 L57.0 Actinic keratosis Nehal WoodsMATTHEW Bain 07/06/2020 L81.4 Other melanin hyperpigmentation Nehal SMATTHEW Hernandez 07/06/2020 L82.1 Other seborrheic keratosis Minerva loo MATTHEW Epperson 07/06/2020 D18.01 Hemangioma of skin and subcutane ous tissue Nehal SMATTHEW Hernandez 07/06/2020 Z12.83 Encounter for screening for ken gnant neoplasm of skin MATTHEW Waller Plan of Treatment 07/06/2020 - Nehal WoodsMATTHEW Hernandez* L57.0 Actinic keratosis* Comments:* LN2 to 6 AK's today. Discussed that the areas treated will get red, bubble up/blister, maybe get a little weepy, form a scab then heal. Sunscreen use and sun protection discussed. Contact office if AK's fail to resolve despite treatment. After care instructions provided. * L81.4 Other melanin hyperpigmentation* Comments:* Reassurance.Sunscreen use and sun protection discussed. * L82.1 Other seborrheic keratosis* Comments:* Reassurance. * D18.01 Hemangioma of skin and subcutaneous tissue* Comments:* Reassurance. * Z12.83 Encounter for screening for malignant neoplasm of skin* Comments:* See above. * Follow up:* Yearly/PRN- [facility] Functional Status Description No Information Available Mental Status Description No Information Available Referrals Description No Information Available"
--- OUTSIDE RECORDS SUMMARY | 2021-01-28 10:43 | CCD | Continuity of Care Document ---
Author Author Cristina RUCKER MD Organization Unknown Address [address] [place] [address], [address] [address] Phone [phone] Care Team Providers Care Creative Guru Name Role Phone Stephen Renae MD AUTM [phone] Kendra Underwood MD AUTM [phone] Problems Active Problems Provider Date Osteoporosis Asia Rucker MD Onset: 02/26/2017 Vitamin D deficiency Asia Rucker MD Onset: 02/26/2017 Social History Type Date Description Comments Sex Unknown Tobacco Use Start: Unknown Never Smoked Cigarettes ETOH Use Never used alcohol Tobacco Use Start: Unknown Patient has never smoked Smoking Status Reviewed: 09/08/20 Patient has never smoked Allergies and adverse reactions Description No Known Drug Allergies Medications Active Medications SIG Qnty Indications Ordering Provide r Date Prolia 60mg/ml Soln Prefill Syring e inject once every 6 months Asia Rucker MD 07/08/19 21 Vitamin D3 1000Unit Tablets 2 tabs by mouth every day with dinner 180tabs E55.9 Brigitte Aguilar NP 01/08/2019 Lipitor 10mg Tablets 1 by mouth every day Unknown Multi For Her Capsules 1 by mouth every day Unknown Oyster Shell Calcium 500/D 500-200 Tablets 1 by mouth daily with food 180tabs Asia gastelum MD Iron (Ferrous Gluconate) 256(28Fe) mg Tablets 1 tab by mouth once daily. Unknown 0 Medications Administered in Office Medication SIG Qnty Indications Ordering Provider Date Prolia [facility]#[id number] (60mg Syringe)1MG Injection Asia Rucker MD 01/10/20 21 Prolia [facility]#[id number] (60mg Syringe)1MG Injection Asia Rucker MD 07/08/19 21 Prolia [facility]#[id number] (60mg Syringe)1MG Injection Asia Rucker MD 07/21/19 20 Prolia [facility]#[id number] (60mg Syringe)1MG Injection Brigitte Aguilar, CALCULATION REVIEWER 01/08 Prolia [facility]#[id number] (60mg Syringe)1MG Injection Brigitte Aguilar, CALCULATION REVIEWER 06/19 Prolia [facility]#[id number] (60mg Syringe)1MG Injection Brigitte Aguilar, CALCULATION REVIEWER 12/17 Immunizations Description No Information Available Vital Signs Date Vital Result Comment 09/08/2020 10:23am BP Systolic 120 mmHg BP Diastolic 70 mmHg Heart Rate 79 /min Height 55.6 inches 4'7.60" Weight 116.38 lb BMI (Body Mass Index) 26.5 kg/m2 O2 % BldC Oximetry 96 % 07/07/2020 1:26pm BP Systolic 122 mmHg BP Diastolic 78 mmHg Heart Rate 85 /min Body Temperature 97.1 F Height 55.6 inches 4'7.60" Weight 119.25 lb BMI (Body Mass Index) 27.1 kg/m2 O2 % BldC Oximetry 92 % Results Test Acquired Date Facility Test Result H/L Range Note Laboratory test finding 09/05/2020 [facility] [address] [place] [address] (315)- - PTH Intact 34.6 pg/mL Normal 18.5-88.0 Basic Metabolic Profile 09/05/2020 [facility] [address] [place] [address] (315)- - Glucose, Fasting 103 mg/dL High 70-100 Blood Urea Nitrogen 13 mg/dL Normal 7-18 Creatinine For GFR 0.73 mg/dL Normal 0.55-1.30 Glomerular Filtration Rate > 60.0 Normal >32 1 Sodium Level 141 mEq/L Normal 136-145 Potassium Serum 4.2 mEq/L Normal 3.5-5.1 Chloride Level 107 mEq/L Normal 98-107 Carbon Dioxide Level 31 mEq/L Normal 21-32 Anion Gap 3 mEq/L Low 8-16 Calcium Level 9.4 mg/dL Normal 8.8-10.2 1 Units are mL/min/1.73 m2 Chronic Kidney Disease Staging per NKF: Stage I & II GFR >=60 Normal to Mildly Decreased Stage III GFR 30-59 Moderately Decreased Stage IV GFR 15-29 Severely Decreased Stage V GFR <15 Very Little GFR Left ESRD GFR <15 on SUPERVISOR SCREEN [employer]KING Procedures Date Code Description Status 01/09/2021 68661 Office/Outpatient Established SF MDM 10-19 Min Completed 01/09/2021 61966 Injec Therapeutic Or Diagnostic Subcut Or Intramuscular Completed 09/08/2020 33780 Office/Outpatient Established Lo w MDM 20-29 Min Completed Medical Devices Description No Information Available Encounters Type Date Location Provider Dx Diagnosis Office Visit 01/09/2021 1:30p DR. Asia Rucker MD M 81.0 Age- related osteoporosis w/o current pathological fracture E55.9 Vitamin D deficiency, unspec ified E83.52 Hypercalcemia Office Visit 09/08/2020 10:30a Alexsandra Wright P M81.0 Age-related osteoporosis w/o current pathological fracture E55.9 Vitamin D deficiency, unspec ified E83.52 Hypercalcemia Assessments Date Code Description Provider 01/09/2021 M81.0 Age-related osteoporosis without current pathological fractu Asia Rucker MD 01/09/2021 E55.9 Vitamin D deficiency, unspecifie d Asia Rucker MD 01/09/2021 E83.52 Hypercalcemia Asia Rucker MD 09/08/2020 M81.0 Age-related osteoporosis without current pathological fractu Brigitte Aguilar, AMANDA 09/08/2020 E55.9 Vitamin D deficiency, unspecifie d Brigitte Aguilar, AMANDA 09/08/2020 E83.52 Hypercalcemia Brigitte arteaga, CALCULATION REVIEWER Plan of Treatment Future Appointment(s):* 07/11/2021 11:30 am - Asia Rucker MD at DR. Asia Rucker 01/09/2021 - Asia Rucker MD* M81.0 Age-related osteoporosis without current pathological fractu* New Labs:* Calcium Level, Ordered: 01/09/21 * Comments:* Her biggest risk factors being a small white female. Her fracture risk was calculated without using the fact that her mother had a hip fracture at age 98 and still shows that she should be treated although she refused at that time. Labs done 08/01/17- Vit D= 34, Calcium= 9.3, Scr= 0.70, GFR= >60Pt was receptive to starting Prolia Prolia is indicated for :--women with osteoporosis at high risk for fracture (hx of fracture or multiple risk factors for fracture)FRAX tool demonstrated she is at high risk for fracture--postmenopausal women with osteoporosis who have failed/intolerant to other therapies-- Patients- men and women with Cr cl< 35erMenopausal :status post menopausalPrevious treatments and outcomes:fosamax-gerdT scores: -2.6 Patient had a dose of Prolia in the spring. She missed her dose in the fall due to the Cintron virus pandemic. Restarted * E55.9 Vitamin D deficiency, unspecified* New Labs:* Vitamin D 25-Hydroxy, Ordered: 01/09/21 * Comments:* Started on an additional Vit D 2000 iu qd06/27/2020, calcium = 11.1, 25 OH D = 27Would prefer the vitamin D level is in the mid 50 range. However and will not encourage escalation of dose until we work out the issues with her new hypercalcemia. * E83.52 Hypercalcemia* Comments:* Hypercalcemia, new problem 06/27/2020, calcium = 11.1, 25 OH D = 275/07/2020, calcium = 10.7. It is unclear as to why her 1 time calcium was elevated and 3 days later was basically back to the normal range. She has never had hypercalcemia before. This is not a result of calcium supplementation for osteoporosis.retetsed 09/05/20- calcium= 9.4 and PTH= 34.6, Scr= 0.73, GFR= >60 - stable 12/29/20 calcium= 9.5 -stable * Follow up:* august- su/cbf- LAB- elevated calcium * All * Comments:* The risk of infection,including infections of the abdomen, urinary tract and ear. Skin problems including dermatitis, eczema and other skin infections.Low blood calcium, and osteonecrosis of the jaw.Patient reviewed the medication guide and agreed to the injection.The patient is aware to contact us with any concerns or signs of the above. Prolia (denosumab) 60 mg was injected SQ into the left upper extremityLot # [id number]: 12/17 Functional Status Description No Information Available Mental Status Description No Information Available Referrals Refer to Reason for Referral Status Appt Date Asia Rucker MD DEXA SCAN NO AUTH REQUIRED BASED ON MEDI TATA NECESSITY. LS Created [address] [place] [address], [address] [place] [address] [phone]
--- OUTSIDE RECORDS SUMMARY | 2021-01-28 10:43 | CCD | Continuity of Care Document ---
Author Author SAGE Sylviagino Organization Unknown Address [address] [place] [address], [facility] [place] [address] Phone [phone] Care Team Providers Care Rn Access Name Role Phone Stephen Renae MD AUTM [phone] Kendra Underwood MD AUTM [phone] Problems Active Problems Provider Date Aortic valve disorder Castillo Gibson MD Onset: 02/07/2017 Electrocardiogram abnormal Castillo Gibson MD Onset: 02/07 Mixed hyperlipidemia Castillo Gibson MD Onset: 02/07/2017 Overweight Castillo Gibson MD Onset: 02/07/2017 Dietary management surveillance Castillo Gibson MD Onset: 02/07/2017 Obstructive sleep apnea syndrome CORRIE Rogers Onse t: 08/17/2020 Social History Type Date Description Comments Sex Unknown ETOH Use Does not consume alcohol Tobacco Use Start: Unknown Patient has never smoked Smoking Status Reviewed: 08/17/20 Patient has never smoked Exercise Type/Frequency Plays golf twice a week In Summer Time Exercise Type/Frequency Walks daily Walking in the Mall during Winter Exercise Limitations None Allergies, Adverse Reactions, Alerts Active Allergies Criticality Reaction | Severity Comments Date Alendronate Unable to assess criticality stomach irri tated 02/06/2017 Aspirin Unable to assess criticality Stomach Irri tation 02/07/2017 Medications Active Medications SIG Qnty Indications Ordering Provide r Date Lipitor 40mg Tablets 1 by mouth every day 90tabs Ford Pelayo MD 08/21/2019 Claritin 10mg Capsules 1 by mouth daily as needed Unknown 08/17/2018 Prolia 60mg/ml Soln Prefill Syring e every 6 months Unknown 08/17/2018 Calcium 500 + D [id number] Tab lets 1 by mouth once daily Unknown 02/06/2017 Aspirin Adult Low Dose 81mg Tablet s DR 1 by mouth every day Unknown 02/06/2017 Multi Vitamin Tablets daily Unknown 02/06/2017 Immunizations Description No Information Available Vital Signs Date Vital Result Comment 08/17/2020 12:58pm Weight 115.00 lb Home Weight 115lb Height 57 inches 4'9" BMI (Body Mass Index) 24.9 kg/m2 Heart Rate 54 /min BP Systolic Sitting 122 mmHg Ra, medium cuff BP Diastolic Sitting 78 mmHg Ra, medium cuff 08/18/2019 12:42pm Weight 113.00 lb Height 57 inches 4'9" BMI (Body Mass Index) 24.5 kg/m2 Heart Rate 57 /min BP Systolic Sitting 116 mmHg adult cuff, Ra BP Diastolic Sitting 60 mmHg adult cuff, Ra Results Test Acquired Date Facility Test Result H/L Range Note BMP 06/30/2020 [facility] (315)- - Calcium Ser/Plasma Mass/Vol 10.0 Sodium 140 Carbon Dioxide Ser/Plasm 25 Chloride Serum/Plasma 109 Potassium 4.3 Glucose 110 High 70-100 Blood Urea Nitrogen 19 High 7-18 Creatinine 0.66 0.55-1.30 G F R >60.0 Procedures Date Code Description Status 11/07/2020 14919 Echocardiogram 2-D Doppler Color Completed 08/17/2020 54681 Office/Outpatient Established Mo d MDM 30-39 Min Completed 08/17/2020 01585 ECG 12-Lead Completed Medical Devices Description No Information Available Encounters Type Date Location Provider Dx Diagnosis Office Visit 08/17/2020 1:00p Main Office CORRIE Rogers I35 .1 Nonrheumatic aortic (valve) insufficiency E78.2 Mixed hyperlipidemia G47.33 Obstructive sleep apnea (teena lt) (pediatric) R94.31 Abnormal electrocardiogram [ ECG] [EKG] Z71.3 Dietary counseling and surve illance Assessments Date Code Description Provider 11/07/2020 I35.1 Nonrheumatic aortic (valve) insu fficiency ECHO 08/17/2020 I35.1 Nonrheumatic aortic (valve) insu fficiency CORRIE Rogers 08/17/2020 E78.2 Mixed hyperlipidemia CORRIE Colin 08/17/2020 G47.33 Obstructive sleep apnea (adult) (pediatric) CORRIE Rogers 08/17/2020 R94.31 Abnormal electrocardiogram [ECG] [EKG] CORRIE Rogers 08/17/2020 Z71.3 Dietary counseling and surveilla nce CORRIE Rogers Plan of Treatment Future Appointment(s):* 08/18/2021 1:00 pm - CORRIE Rogers at Main Office 08/17/2020 - CORRIE Rogers* I35.1 Nonrheumatic aortic (valve) insufficiency* Recommendations:* Repeat echocardiogram ordered for further evaluation * E78.2 Mixed hyperlipidemia* New Labs:* Lipid Panel, Ordered: 08/17/20 * BMP, Ordered: 08/17/20 * Recommendations:* Please obtain fasting labs Continue atorvastatin at the current dose * G47.33 Obstructive sleep apnea (adult) (pediatric)* Recommendations:* Reinforced the consistent use of CPAP will assist in blood pressure reduction and promote nocturnal blood pressure dipping patterns. Negative effects of hypoxia during sleep were reviewed including impaired daytime cognition and level of alertness. * R94.31 Abnormal electrocardiogram [ECG] [EKG]* Recommendations:* No further evaluation is needed at this time. * Z71.3 Dietary counseling and surveillance* Recommendations:* Recommended for patient to follow a more whole food diet. Advised patient to avoid overly processed foods and packaged foods. Advised patient to avoid sodas, juices and other liquid calories. Recommended at least 30 minutes of exercise 3 days a week. * All * Follow up:* Follow up in 1 year Functional Status Functional Condition Comment Date Status Independent with all ADL's Activ e Mental Status Description No Information Available Referrals Description No Information Available
--- OUTSIDE RECORDS SUMMARY | 2021-01-28 10:43 | CCD | Continuity of Care Document ---
Author Author Cristina BREAUX Organization Unknown Address [address] [address] Phone [phone] Care Team Providers Care Packer Name Role Phone Stephen Renae MD AUTM [phone] Kendra Underwood MD AUTM [phone] Problems Description No Information Available Social History [...] Available Procedures Date Code Description Status 11/18/2020 41323 Office/Outpatient Established Mo d MDM 30-39 Min Completed 11/18/2020 59051 X-Ray Hips Bilateral With Pelvis Minimum 5 Views Completed 11/18/2020 06383 X-Ray Spine Lumbosacral Complete Inc Bending Views Min Of 6 Completed 11/18/2020 50034 Inject/Drain Joint/Bursa Major C ompleted Medical Devices Description No Information Available Encounters Type Date Location Provider Dx Diagnosis Office Visit 11/18/2020 9:15a [facility] Wendy Breaux PA-C M5 1.36 Other intervertebral [...] 10:45 am - Wendy Breaux PA-C at [facility] 11/18/2020 - Wendy Breaux PA-C* M51.36 Other intervertebral disc degeneration, lumbar region * M25.552 Pain in left hip * M70.61 Trochanteric bursitis, right hip * M70.62 Trochanteric bursitis, left hip Functional Status Description No Information Available Mental Status Description No Information Available Referrals Description No Information Available
--- OUTSIDE RECORDS SUMMARY | 2021-01-28 10:43 | CCD | Continuity of Care Document ---
Author Author SAGE Sylviagino Organization Unknown Address [address] [place] [address], [facility] [place] [address] Phone [phone] Care Team Providers Care Agile Java Developer Name Role Phone Stephen Renae MD AUTM [phone] Kendra Underwood MD AUTM [phone] Problems Active Problems Provider Date Aortic valve [...] months Unknown 08/17/2018 Calcium 500 + D [id number] Tab lets 1 by mouth once daily [...] >60.0 Procedures Date Code Description Status 11/07/2020 05037 Echocardiogram 2-D Doppler Color Completed 08/17/2020 57184 Office/Outpatient Established Mo d MDM 30-39 Min Completed 08/17/2020 38772 ECG 12-Lead Completed Medical Devices Description No [...]
--- OUTSIDE RECORDS SUMMARY | 2021-01-28 10:43 | CCD ---
Author Author [facility] Organization [facility] Address Unknown Phone Unavailable Care Team Providers Care Hot Plate [employer]wood Press Offbearer Name Role Phone Wayne Fuentes CONSTRUCTION PROJECT ASSISTANT Unavailable Unavailable Alfredo, L Yady CONSTRUCTION PROJECT ASSISTANT Unavailable Unavailable Alfredo, L Yady CONSTRUCTION PROJECT ASSISTANT Unavailable Unavailable Alfredo, L Yady CONSTRUCTION PROJECT ASSISTANT Unavailable Unavailable Alfredo, L Yady CONSTRUCTION PROJECT ASSISTANT Unavailable Unavailable Alfredo, L Yady CONSTRUCTION PROJECT ASSISTANT Unavailable Unavailable Alfredo, L Yady CONSTRUCTION PROJECT ASSISTANT Unavailable Unavailable Alfredo, L Yady CONSTRUCTION PROJECT ASSISTANT Unavailable Unavailable Alfredo, L Yady CONSTRUCTION PROJECT ASSISTANT Unavailable Unavailable Alfredo, L Yady CONSTRUCTION PROJECT ASSISTANT Unavailable Unavailable Alfredo, L Yady CONSTRUCTION PROJECT ASSISTANT Unavailable Unavailable Alfredo, L Yady CONSTRUCTION PROJECT ASSISTANT Unavailable Unavailable Alfredo, L Yady CONSTRUCTION PROJECT ASSISTANT Unavailable Unavailable Alfredo, L Yady CONSTRUCTION PROJECT ASSISTANT Unavailable Unavailable Alfredo, L Yady CONSTRUCTION PROJECT ASSISTANT Unavailable Unavailable Alfredo, L Yady CONSTRUCTION PROJECT ASSISTANT Unavailable Unavailable Alfredo, L Yady CONSTRUCTION PROJECT ASSISTANT Unavailable Unavailable Alfredo, L Yady CONSTRUCTION PROJECT ASSISTANT Unavailable Unavailable Alfredo, L Yady CONSTRUCTION PROJECT ASSISTANT Unavailable Unavailable Alfredo, L Yady CONSTRUCTION PROJECT ASSISTANT Unavailable Unavailable Alfredo, L Yady CONSTRUCTION PROJECT ASSISTANT Unavailable Unavailable Alfredo, L Yady CONSTRUCTION PROJECT ASSISTANT Unavailable Unavailable Alfredo, L Yady CONSTRUCTION PROJECT ASSISTANT Unavailable Unavailable Alfredo, L Yady CONSTRUCTION PROJECT ASSISTANT Unavailable Unavailable Alfredo, L Yady CONSTRUCTION PROJECT ASSISTANT Unavailable Unavailable VENESSA, B KIKA CONSTRUCTION PROJECT ASSISTANT Unavailable Unavailable VENESSA, B KIKA CONSTRUCTION PROJECT ASSISTANT Unavailable Unavailable VENESSA, B KIKA CONSTRUCTION PROJECT ASSISTANT Unavailable Unavailable VENESSA, B KIKA CONSTRUCTION PROJECT ASSISTANT Unavailable Unavailable VENESSA, B KIKA CONSTRUCTION PROJECT ASSISTANT Unavailable Unavailable VENESSA, B KIKA CONSTRUCTION PROJECT ASSISTANT Unavailable Unavailable VENESSA, B KIKA CONSTRUCTION PROJECT ASSISTANT Unavailable Unavailable VENESSA, B KIKA CONSTRUCTION PROJECT ASSISTANT Unavailable Unavailable VENESSA, B KIKA CONSTRUCTION PROJECT ASSISTANT Unavailable Unavailable VENESSA, B KIKA CONSTRUCTION PROJECT ASSISTANT Unavailable Unavailable VENESSA, B KIKA CONSTRUCTION PROJECT ASSISTANT Unavailable Unavailable VENESSA, B KIKA CONSTRUCTION PROJECT ASSISTANT Unavailable Unavailable VENESSA, B KIKA CONSTRUCTION PROJECT ASSISTANT Unavailable Unavailable VENESSA, B KIKA CONSTRUCTION PROJECT ASSISTANT Unavailable Unavailable VENESSA, B KIKA CONSTRUCTION PROJECT ASSISTANT Unavailable Unavailable VENESSA, B KIKA CONSTRUCTION PROJECT ASSISTANT Unavailable Unavailable VENESSA, B KIKA CONSTRUCTION PROJECT ASSISTANT Unavailable Unavailable VENESSA, B KIKA CONSTRUCTION PROJECT ASSISTANT Unavailable Unavailable VENESSA, B KIKA CONSTRUCTION PROJECT ASSISTANT Unavailable Unavailable VENESSA, B KIKA CONSTRUCTION PROJECT ASSISTANT Unavailable Unavailable VENESSA, B KIKA CONSTRUCTION PROJECT ASSISTANT Unavailable Unavailable VENESSA, B KIKA CONSTRUCTION PROJECT ASSISTANT Unavailable Unavailable VENESSA, B KIKA CONSTRUCTION PROJECT ASSISTANT Unavailable Unavailable VENESSA, B KIKA CONSTRUCTION PROJECT ASSISTANT Unavailable Unavailable VENESSA, B KIKA CONSTRUCTION PROJECT ASSISTANT Unavailable Unavailable VENESSA, B KIKA CONSTRUCTION PROJECT ASSISTANT Unavailable Unavailable VENESSA, B KIKA CONSTRUCTION PROJECT ASSISTANT Unavailable Unavailable VENESSA, B KIKA CONSTRUCTION PROJECT ASSISTANT Unavailable Unavailable VENESSA, B KIKA CONSTRUCTION PROJECT ASSISTANT Unavailable Unavailable VENESSA, B KIKA CONSTRUCTION PROJECT ASSISTANT Unavailable Unavailable VENESSA, B KIKA CONSTRUCTION PROJECT ASSISTANT Unavailable Unavailable VENESSA, B KIKA CONSTRUCTION PROJECT ASSISTANT Unavailable Unavailable VENESSA, B KIKA CONSTRUCTION PROJECT ASSISTANT Unavailable Unavailable VENESSA, B KIKA CONSTRUCTION PROJECT ASSISTANT Unavailable Unavailable VENESSA, B KIKA CONSTRUCTION PROJECT ASSISTANT Unavailable Unavailable VENESSA, B KIKA CONSTRUCTION PROJECT ASSISTANT Unavailable Unavailable VENESSA, B KIKA CONSTRUCTION PROJECT ASSISTANT Unavailable Unavailable VENESSA, B KIKA CONSTRUCTION PROJECT ASSISTANT Unavailable Unavailable VENESSA, B KIKA CONSTRUCTION PROJECT ASSISTANT Unavailable Unavailable VENESSA, B KIKA CONSTRUCTION PROJECT ASSISTANT Unavailable Unavailable VENESSA, B KIKA CONSTRUCTION PROJECT ASSISTANT Unavailable Unavailable VENESSA, B KIKA CONSTRUCTION PROJECT ASSISTANT Unavailable Unavailable VENESSA, B KIKA CONSTRUCTION PROJECT ASSISTANT Unavailable Unavailable VENESSA, B KIKA CONSTRUCTION PROJECT ASSISTANT Unavailable Unavailable VENESSA, B KIKA CONSTRUCTION PROJECT ASSISTANT Unavailable Unavailable VENESSA, B KIKA CONSTRUCTION PROJECT ASSISTANT Unavailable Unavailable VENESSA, B KIKA CONSTRUCTION PROJECT ASSISTANT Unavailable Unavailable VENESSA, B KIKA CONSTRUCTION PROJECT ASSISTANT Unavailable Unavailable VENESSA, B KIKA CONSTRUCTION PROJECT ASSISTANT Unavailable Unavailable VENESSA, B KIKA CONSTRUCTION PROJECT ASSISTANT Unavailable Unavailable VENESSA, B KIKA CONSTRUCTION PROJECT ASSISTANT Unavailable Unavailable VENESSA, B KIKA CONSTRUCTION PROJECT ASSISTANT Unavailable Unavailable VENESSA, B KIKA CONSTRUCTION PROJECT ASSISTANT Unavailable Unavailable VENESSA, B KIKA CONSTRUCTION PROJECT ASSISTANT Unavailable Unavailable VENESSA, B KIKA CONSTRUCTION PROJECT ASSISTANT Unavailable Unavailable VENESSA, B KIKA CONSTRUCTION PROJECT ASSISTANT Unavailable Unavailable VENESSA, B KIKA CONSTRUCTION PROJECT ASSISTANT Unavailable Unavailable VENESSA, B KIKA CONSTRUCTION PROJECT ASSISTANT Unavailable Unavailable VENESSA, B KIKA CONSTRUCTION PROJECT ASSISTANT Unavailable Unavailable VENESSA, B KIKA CONSTRUCTION PROJECT ASSISTANT Unavailable Unavailable VENESSA, B KIKA CONSTRUCTION PROJECT ASSISTANT Unavailable Unavailable VENESSA, B KIKA CONSTRUCTION PROJECT ASSISTANT Unavailable Unavailable Fish, Leyla Betancourt MD Unavailable Unavailable Fish, Leyla Betancourt MD Unavailable Unavailable Fish, Leyla Betancourt MD Unavailable Unavailable Fish, Leyla Betancourt MD Unavailable Unavailable Fish, Leyla Betancourt MD Unavailable Unavailable Fish, Leyla Betancourt MD Unavailable Unavailable Fish, Leyla Betancourt MD Unavailable Unavailable Fish, Leyla Betancourt MD Unavailable Unavailable Fish, Leyla Betancourt MD Unavailable Unavailable Fish, B Asia LEBLANC Unavailable Unavailable Fish, Leyla Betancourt MD Unavailable Unavailable Fish, Leyla Betancourt MD Unavailable Unavailable Fish, B Asia LEBLANC Unavailable Unavailable Fish, Leyla Betancourt MD Unavailable Unavailable Fish, Leyla Betancourt MD Unavailable Unavailable Fish, Leyla Betancourt MD Unavailable Unavailable Fish, Leyla Betancourt MD Unavailable Unavailable Fish, B Asia LEBLANC Unavailable Unavailable Fish, Leyla Betancourt MD Unavailable Unavailable Fish, Leyla Betancourt MD Unavailable Unavailable FishLeyla MD Unavailable Unavailable Fish, Leyla Betancourt MD Unavailable Unavailable FishLeyla MD Unavailable Unavailable Fish B Asia LEBLANC Unavailable Unavailable Fish, B Asia LEBLANC Unavailable Unavailable Fish, B Asia LEBLANC Unavailable Unavailable Fish, B Asia LEBLANC Unavailable Unavailable Fish, B Asia LEBLANC Unavailable Unavailable Fish, B Asia LEBLANC Unavailable Unavailable Fish, B Asia LEBLANC Unavailable Unavailable Fish, B Asia LEBLANC Unavailable Unavailable Fish, B Asia LEBLANC Unavailable Unavailable Fish, B Asia LEBLANC Unavailable Unavailable Fish, B Asia LEBLANC Unavailable Unavailable Fish, B Asia LEBLANC Unavailable Unavailable Fish, Leyla Betancourt MD Unavailable Unavailable Leyla Deleon MD Unavailable Unavailable Fish, Leyla Betancourt MD Unavailable Unavailable Fish, Leyla Betancourt MD Unavailable Unavailable Fish, Leyla Betancourt MD Unavailable Unavailable Fish, Leyla Betancourt MD Unavailable Unavailable Fish, Leyla Betancourt MD Unavailable Unavailable Fish, Leyla Betancourt MD Unavailable Unavailable Fish, Leyla Betancourt MD Unavailable Unavailable Fish, Leyla Betancourt MD Unavailable Unavailable Fish, B Asia LEBLANC Unavailable Unavailable Fish, B Asia LEBLANC Unavailable Unavailable Fish, B Asia LEBLANC Unavailable Unavailable Fish, B Asia LEBLANC Unavailable Unavailable Fish, B Asia LEBLANC Unavailable Unavailable Fish, Leyla Betancourt MD Unavailable Unavailable Fish, B Asia LEBLANC Unavailable Unavailable Fish, B Asia LEBLANC Unavailable Unavailable Fish, B Asia LEBLANC Unavailable Unavailable Fish, B Asia LEBLANC Unavailable Unavailable Fish, B Asia LEBLANC Unavailable Unavailable Fish, B Asia LEBLANC Unavailable Unavailable Fish, B Asia LEBLANC Unavailable Unavailable Fish, B Asia LEBLANC Unavailable Unavailable Fish, B Asia LEBLANC Unavailable Unavailable Fish, B Asia LEBLANC Unavailable Unavailable Fish, B Asia LEBLANC Unavailable Unavailable Fish, B Asia LEBLANC Unavailable Unavailable Fish, B Asia LEBLANC Unavailable Unavailable Fish, B Asia LEBLANC Unavailable Unavailable Breaux, M Barratt PA Unavailable Unavailable Breaux, M Barratt PA Unavailable Unavailable Breaux, M Barratt PA Unavailable Unavailable Breaux, M Barratt PA Unavailable Unavailable Breaux, M Barratt PA Unavailable Unavailable Breaux, M Barratt PA Unavailable Unavailable Breaux, M Barratt PA Unavailable Unavailable Breaux, M Barratt PA Unavailable Unavailable Breaux, M Barratt PA Unavailable Unavailable Breaux, M Barratt PA Unavailable Unavailable Breaux, M Barratt PA Unavailable Unavailable Breaux, M Barratt PA Unavailable Unavailable Breaux, M Barratt PA Unavailable Unavailable Breaux, M Barratt PA Unavailable Unavailable Breaux, M Barratt PA Unavailable Unavailable Breaux, M Barratt PA Unavailable Unavailable Breaux, M Barratt PA Unavailable Unavailable Breaux, M Barratt PA Unavailable Unavailable Breaux, M Barratt PA Unavailable Unavailable Breaux, M Barratt PA Unavailable Unavailable Breaux, M Barratt PA Unavailable Unavailable Breaux, M Barratt PA Unavailable Unavailable Breaux, M Barratt PA Unavailable Unavailable Breaux, M Barratt PA Unavailable Unavailable Breaux, M Barratt PA Unavailable Unavailable Breaux, M Barratt PA Unavailable Unavailable Breaux, M Barratt PA Unavailable Unavailable Breaux, M Barratt PA Unavailable Unavailable Breaux, M Barratt PA Unavailable Unavailable LY, L RYANNE PA Unavailable Unavailable LY, L RYANNE PA Unavailable Unavailable LY, L RYANNE PA Unavailable Unavailable LY, L RYANNE PA Unavailable Unavailable LY, L RYANNE PA Unavailable Unavailable LY, L RYANNE PA Unavailable Unavailable LY, L RYANNE PA Unavailable Unavailable LY, L RYANNE PA Unavailable Unavailable LY, L RYANNE PA Unavailable Unavailable LY, L RYANNE PA Unavailable Unavailable LY, L RYANNE PA Unavailable Unavailable LY, L RYANNE PA Unavailable Unavailable LY, L RYANNE PA Unavailable Unavailable LY, L RYANNE PA Unavailable Unavailable LY, L RYANNE PA Unavailable Unavailable LY, L RYANNE PA Unavailable Unavailable Lockerbie, S Nehal BELT CUTTER-C Unavailable Unavailable Lockerbie, S Nehal BELT CUTTER-C Unavailable Unavailable Lockerbie, S Nehal BELT CUTTER-C Unavailable Unavailable Lockerbie, S Nehal BELT CUTTER-C Unavailable Unavailable Lockerbie, S Nehal BELT CUTTER-C Unavailable Unavailable Lockerbie, S Nehal BELT CUTTER-C Unavailable Unavailable Lockerbie, S Nehal BELT CUTTER-C Unavailable Unavailable Lockerbie, S Nehal BELT CUTTER-C Unavailable Unavailable Lockerbie, S Nehal BELT CUTTER-C Unavailable Unavailable Lockerbie, S Nehal BELT CUTTER-C Unavailable Unavailable Lockerbie, S Nehal BELT CUTTER-C Unavailable Unavailable Lockerbie, S Nehal BELT CUTTER-C Unavailable Unavailable Lockerbie, S Nehal BELT CUTTER-C Unavailable Unavailable Lockerbie, S Nehal BELT CUTTER-C Unavailable Unavailable Lockerbie, S Nehal BELT CUTTER-C Unavailable Unavailable Lockerbie, S Nehal BELT CUTTER-C Unavailable Unavailable Lockerbie, S Nehal BELT CUTTER-C Unavailable Unavailable Lockerbie, S Nehal BELT CUTTER-C Unavailable Unavailable Lockerbie, S Nehal BELT CUTTER-C Unavailable Unavailable Lockerbie, S Nehal BELT CUTTER-C Unavailable Unavailable Lockerbie, S Nehal BELT CUTTER-C Unavailable Unavailable Lockerbie, S Nehal BELT CUTTER-C Unavailable Unavailable Lockerbie, S Nehal BELT CUTTER-C Unavailable Unavailable Lockerbie, S Nehal BELT CUTTER-C Unavailable Unavailable Re-disclosure Warning The records that you are about to access may contain information from federally-assisted alcohol or drug abuse programs. If such information is present, then the following federally mandated warning applies: This information has been disclosed to you from records protected by federal confidentiality rules (42 CFR part 2). The federal rules prohibit you from making any further disclosure of this information unless further disclosure is expressly permitted by the written consent of the person to whom it pertains or as otherwise permitted by 42 CFR part 2. A general authorization for the release of medical or other information is NOT sufficient for this purpose. The Federal rules restrict any use of the information to criminally investigate or prosecute any alcohol or drug abuse patient.The records that you are about to access may contain highly sensitive health information, the redisclosure of which is protected by Article 27-F of the [facility] Public Health law. If you continue you may have access to information: Regarding HIV / AIDS; Provided by facilities licensed or operated by the [facility] Office of Mental Health; or Provided by the [facility] Office for People With Developmental Disabilities. If such information is present, then the following [facility] mandated warning applies: This information has been disclosed to you from confidential records which are protected by state law. State law prohibits you from making any further disclosure of this information without the specific written consent of the person to whom it pertains, or as otherwise permitted by law. Any unauthorized further disclosure in violation of state law may result in a fine or senior care sentence or both. A general authorization for the release of medical or other information is NOT sufficient authorization for further disc losure. Allergies and Adverse Reactions Type Description Substance Reaction Status Data Source(s ) Adverse Reaction Adverse Reaction Synonym(s): ACETYLSA LICYLIC ACID; EXCEDRIN COMPONENT ASPIRIN; ASPIRIN COMPONENT OF INVAGESIC FORTE; LANORINAL COMPONENT ASPIRIN; ASPIRIN COMPONENT OF AGGRENOX; ROXIPRIN COMPONENT ASPIRIN; CODOXY COMP ONENT ASPIRIN; DARVON COMPOUND COMPONENT ASPIRIN; ASPIRIN [MART.]; AXOTAL COMPONENT ASPIRIN; ASPIRIN COMPONENT OF SOMA COMPOUND; ROBAXISAL COMPONENT ASPIRIN; EQUAGESIC COMPONENT ASPIRIN; MICRAININ COMPONENT ASPIRIN; ASPIRIN COMPONENT OF CODOXY; ACETYLSALICYLIC ACID [WHO-DD]; ASPIRIN [VANDF]; 2- ACETYLOXYBENZOIC ACID; SALICYLIC ACID ACETATE; ACIDUM ACETYLSALICYLICUM; ACETYLSALICYLICUM ACIDUM; ASPIRIN COMPONENT OF EXCEDRIN; ASPIRIN COMPONENT OF AZDONE; Q-GESIC COMPONENT ASPIRIN; PERCODAN-BLANCA COMPONENT ASPIRIN; ASPIRIN [ORANGE BOOK]; ACETYLSALICYLIC ACID [MAMADOU EPAR]; ACETYLSALICYLIC ACID [INCI]; ASPIRIN [CHCF]; ASPIRIN COMPONENT OF AXOTAL; ASPIRIN COMPONENT OF FIORINAL; ASPIRIN COMPONENT OF Q-GESIC; ASPIRIN COMPONENT OF ROBAXISAL; PERCODAN COMPONENT ASPIRIN; ASPIRIN COMPONENT OF PERCODAN; ASPIRIN COMPONENT OF PERCODAN-BLANCA; ASPIRIN COMPONENT OF EQUAGESIC; INVAGESIC COMPONENT ASPIRIN; ASPIRIN COMPONENT OF CARISOPRODOL COMPOUND; ASPIRIN COMPONENT OF VICOPRIN; ASPIRIN COMPONENT OF DARVON COMPOUND; BENZOIC ACID, 2-(ACETYLOXY)-; 2-(ACETYLOXY)BENZOIC ACID; ASA; ACETYLSALICYLICUM ACIDUM [HPUS]; SOMA COMPOUND COMPONENT ASPIRIN; AZDONE COMPONENT ASPIRIN; ORPHENGESIC COMPONENT ASPIRIN; ASPIRIN COMPONENT OF ORPH ENGESIC; AGGRENOX COMPONENT ASPIRIN; ASPIRIN COMPONENT OF ROXIPRIN; ASPIRIN COMPONENT OF MICRAININ; ACETYLSALICYLIC ACID [EP]; FIORINAL COMPONENT ASPIRIN; TALWIN COMPOUND COMPONENT ASPIRIN; ASPIRIN COMPONENT OF TALWIN COMPOUND; ASPIRIN COMPONENT OF MEPRO-ASPIRIN; INVAGESIC FORTE COMPONENT ASPIRIN; ASPIRIN COMPONENT OF ORPHENGESIC FORTE; SYNALGOS-DC COMPONENT ASPIRIN; PRAVIGARD PAC COMPONENT ASPIRIN; CARISOPRODOL COMPOUND COMPONENT ASPIRIN; NORGESIC COMPONENT ASPIRIN; ACETYLSALICYLIC ACID [GREEN BOOK]; ACETYL SALICYLATE; ASPIRIN [HSDB]; ORPHENGESIC FORTE COMPONENT ASPIRIN; ASPIRIN COMPONENT OF LANORINAL; ASPIRIN COMPONENT OF SYNALGOS-DC; ASPIRIN COMPONENT OF INVAGESIC; ASPIRIN COMPONENT OF PRAVIGARD PAC; ASPIRIN COMPONENT OF NORGESIC; VICOPRIN COMPONENT ASPIRIN; MEPRO- ASPIRIN COMPONENT ASPIRIN; ASPIRIN [IN]; MEASURIN MEDENT ([facility]) Family History Family Member Name Family Member Gender Family Member Status Date o f Status Description Data Source(s) Unknown Male Problem [facility] ([facility]) Unknown Female Problem [facility] ([facility] ) Unknown Male Problem [facility] ([facility] Encounters Encounter Providers Location Date Indications Data Source(s ) Outpatient Attender: Asia Deleon MD Physical Therapy 01/09 12:30:00 PM EST [facility] ([facility]) [place] [address] [facility] [address] 01/03/2021 12:00:00 AM EST eCW1 ([facility]) Unknown [address] [facility] [address] 12/23/2020 12:00:00 AM EDT eCW1 ([facility]) Outpatient Attender: Yady Ramírez/Donis/Iain/Reindl 12/21/2020 11:30:00 AM EDT MED[facility] ([facility]) Outpatient Attender: Wendy DENTON Physical Therapy 09:15:00 AM EDT [facility] ([facility]) Unknown [address] [facility] [address] 11/10/2020 12:00:00 AM EDT eCW1 ([facility]) OFFICE OUTPATIENT VISIT 15 MINUTES Attender: KIKA CLIFFORD NP Physical Therapy 09/08/2020 10:30:00 AM EDT MED[facility] ([facility]) Outpatient Attender: RYANNE DENTON Main Office 08/17/2020 0 1:00:00 PM EDT [facility] ([facility]) Unknown [address] [facility] [address] 08/16/2020 12:00:00 AM EDT eCW1 ([facility]) Outpatient Attender: Asia Deleon MD Physical Therapy 07/07 01:30:00 PM EDT MED[facility] ([facility]) Outpatient Attender: Nehal GARCÍAP-C Main Office 07/06/2020 10:30:00 AM EDT [facility] ([facility]) Unknown [address] [facility] [address] 07/01/2020 12:00:00 AM EDT eCW1 ([facility]) Outpatient [address] [facility] [address] 06/30/2020 12:00:00 AM EDT eCW1 ([facility]) Unknown [address] [facility] [address] 03/07/2020 12:00:00 AM EST eCW1 ([facility]) Outpatient Attender: Yady Ramírez/Donis/Iain/Reindl 02/10/2020 10:30:00 AM EST [facility] ([facility] Outpatient [address] [facility] [address] 12/29/2019 12:00:00 AM EST eCW1 ([facility]) Medications Medication Brand Name Start Date Product Form Dose Route Admi nistrative Instructions Pharmacy Instructions Status Indications Reaction Description Data Source(s) Prolia [facility]#[id number] (60mg Syringe)1MG 01/09/2021 12:00:00 AM EST completed MED[facility] ([facility]) Medication administered onsite 240 mcg/0.7 mL 12/12/2020 12:00:00 AM EDT syringe 0 INJECT DIRECTED INJECT DIRECTED SOLD: 12/12/2020 [facility] U[facility] 400 MG/ML Topical Cream Urea 07/19/2020 12:00:00 AM EDT active MED[facility] ([facility]) Prolia [facility]#[id number] (60mg Syringe)1MG 07/07/2020 12:00:00 AM EDT completed [facility] ([facility] ) Medication administered onsite 1 ML denosumab 60 MG/ML Prefilled Syringe [Prolia] Prolia 07/07/2020 12:00:00 AM EDT active MED[facility] ([facility]) Vitamin D-3 25 MCG (1000 UT) Vitamin D-3 25 MCG (1000 UT) 12:00:00 AM EST 1.0 {capsule} active Vitamin D- 3 25 MCG (1000 UT) eCW1 ([facility]) Vitamin D-3 25 MCG (1000 UT) Vitamin D-3 25 MCG (1000 UT) 12:00:00 AM EST 1.0 {capsule} active Vitamin D- 3 25 MCG (1000 UT) eCW1 ([facility]) Vitamin D-3 25 MCG (1000 UT) Vitamin D-3 25 MCG (1000 UT) 12:00:00 AM EST 1.0 {capsule} active Vitamin D- 3 25 MCG (1000 UT) eCW1 ([facility]) Vitamin D-3 25 MCG (1000 UT) Vitamin D-3 25 MCG (1000 UT) 12:00:00 AM EST 1.0 {capsule} active Vitamin D- 3 25 MCG (1000 UT) eCW1 ([facility]) Vitamin D-3 25 MCG (1000 UT) Vitamin D-3 25 MCG (1000 UT) 12:00:00 AM EST 1.0 {capsule} active Vitamin D- 3 25 MCG (1000 UT) eCW1 ([facility]) Vitamin D-3 25 MCG (1000 UT) Vitamin D-3 25 MCG (1000 UT) 12:00:00 AM EST 1.0 {capsule} active Vitamin D- 3 25 MCG (1000 UT) eCW1 ([facility]) Vitamin D-3 25 MCG (1000 UT) Vitamin D-3 25 MCG (1000 UT) 12:00:00 AM EST 1.0 {capsule} active Vitamin D- 3 25 MCG (1000 UT) eCW ([facility]) Oyster Calcium + D 500-125 MG-UNIT UNK 12/29/2019 12:00:00 AM EST 1.0 {tablet} active Oyster Calcium + D 500-1 25 MG-UNIT W1 ([facility]) Diclofenac Sodium 0.01 MG/MG Topical Gel [Voltaren] Voltaren 1 % Voltaren 1 % 12/29/2019 12:00:00 AM EST active Voltaren 1 % eCW1 ([facility]) Diclofenac Sodium 0.01 MG/MG Topical Gel [Voltaren] Voltaren 1 % Voltaren 1 % 12/29/2019 12:00:00 AM EST active Voltaren 1 % eCW1 ([facility]) Oyster Calcium + D 500-125 MG-UNIT Oyster Calcium + D 500-12 5 MG-UNIT 12/29/2019 12:00:00 AM EST 1.0 {tablet} active Oyster Calcium + D 500-125 MG-UNIT eCW1 ([facility]) Diclofenac Sodium 0.01 MG/MG Topical Gel [Voltaren] Voltaren 1 % Voltaren 1 % 12/29/2019 12:00:00 AM EST active Voltaren 1 % eCW1 ([facility]) Oyster Calcium + D 500-125 MG-UNIT UNK 12/29/2019 12:00:00 AM EST 1.0 {tablet} active Oyster Calcium + D 500-1 25 MG-UNIT eCW1 ([facility]) Diclofenac Sodium 0.01 MG/MG Topical Gel [Voltaren] Voltaren 1 % Voltaren 1 % 12/29/2019 12:00:00 AM EST active Voltaren 1 % eCW1 ([facility]) Diclofenac Sodium 0.01 MG/MG Topical Gel [Voltaren] Voltaren 1 % Voltaren 1 % 12/29/2019 12:00:00 AM EST active Voltaren 1 % eCW1 ([facility]) Diclofenac Sodium 0.01 MG/MG Topical Gel [Voltaren] Voltaren 1 % Voltaren 1 % 12/29/2019 12:00:00 AM EST active Voltaren 1 % eCW1 ([facility]) Oyster Calcium + D 500-125 MG-UNIT Oyster Calcium + D 500-12 5 MG-UNIT 12/29/2019 12:00:00 AM EST 1.0 {tablet} active Oyster Calcium + D 500-125 MG-UNIT eCW1 ([facility]) Oyster Calcium + D 500-125 MG-UNIT Oyster Calcium + D 500-12 5 MG-UNIT 12/29/2019 12:00:00 AM EST 1.0 {tablet} active Oyster Calcium + D 500-125 MG-UNIT eCW1 ([facility]) Oyster Calcium + D 500-125 MG-UNIT UNK 12/29/2019 12:00:00 AM EST 1.0 {tablet} active Oyster Calcium + D 500-1 25 MG-UNIT eCW1 ([facility]) Diclofenac Sodium 0.01 MG/MG Topical Gel [Voltaren] Voltaren 1 % Voltaren 1 % 12/29/2019 12:00:00 AM EST active Voltaren 1 % eCW1 ([facility]ly [facility]) Diclofenac Sodium 0.01 MG/MG Topical Gel [Voltaren] Voltaren 1 % Voltaren 1 % 12/29/2019 12:00:00 AM EST active Voltaren 1 % eCW1 (Formerly [facility]) Oyster Calcium + D 500-125 MG-UNIT Oyster Calcium + D 500-12 5 MG-UNIT 12/29/2019 12:00:00 AM EST 1.0 {tablet} active Oyster Calcium + D 500-125 MG-UNIT eCW1 ([facility]ly [facility]) Oyster Calcium + D 500-125 MG-UNIT UNK 12/29/2019 12:00:00 AM EST 1.0 {tablet} active Oyster Calcium + D 500-1 25 MG-UNIT eCW1 ([facility]ly [facility]) Insurance Providers Payer name Policy type / Coverage type Policy ID Covered green party ID Covered green party's relationship to sloan Policy Sloan Plan Information MEDICARE [id number] [facility] [id number] A Medicare - [facility] Medicare Primary [id number] Self 3 [id number] Medicare (Part B) Medicare Primary [id number] Self 3 [id number] MEDICARE [id number] SP [id number] T Medicare (Part B) Medicare Primary [id number] Self [id number] Medicare (Part B) Medicare Primary [id number] Self [id number] Medicare (Part B) Medicare Primary [id number] Self 4 [id number] MEDICARE [id number] SP [id number] A Medicare - N[place] Medicare Primary [id number] Self 4 [id number] [place] [id number] Self [id number] [facility] (TFL) [facility] Part B [id number] Family Dependent [id number] Medicare [place] Medicare Primary [id number] Self [id number] [facility] [id number] Family Dependent [id number] [facility] Life [facility] [id number] Family Dependent [id number] [facility]FL[facility] [id number] Family Dependent [id number] Medicare [place] Medicare Primary [id number] Self [id number] ANS-Medicare Part B [id number] ANSI-Commercial [id number] ANSI-Medicare Part B [id number] ANSI-Commercial [id number] ANSI-Commercial [id number] ANSI-Medicare Part B [id number] ANSI-Commercial [id number] ANSI-Medicare Part B [id number] ANSI-Commercial [id number] ANSI-Medicare Part B [id number] ANSI-Medicare Part B [id number] ANSI-Commercial [id number] [facility] For Life - [facility] Part B [id number] Family Dependent 4 [id number] ANSI-Commercial [id number] ANSI-Medicare Part B [id number] ANSI-Commercial [id number] ANS-Medicare Part B [id number] For Life Reg 1 [facility] Part B [id number] 4 [id number] [place] [facility] ([place]FL) [facility] Part B [id number] Family Dependent [id number] Medicare [place] Medicare Primary [id number] Self [id number] MEDICARE [id number] T ANSI-Commercial [id number] ANSI-Medicare Part B [id number] [place] [facility] (TFL) [facility] Part B [id number] Family Dependent [id number] Medicare [place] Medicare Primary [id number] Self [id number] [place] [employer] ([facility]) [facility] Part B [id number] Family Dependent [id number] Medicare [place] Medicare Primary [id number] Self [id number] FOR LIFE [id number] HU2 [id number] [facility] [place] [id number] HU2 [id number] [facility] [place] [id number] HU [id number] [facility] [place] [id number] HU [id number] [facility] BENEFIT PLAN [id number] SP [id number] Spo [id number] PI PI MEDICARE PI PI [place] [employer] ([place]FL) [facility] [id number] Family Dependent [id number] Medicare [place] Medicare Primary [id number] Self [id number] For Life - W[facility] Part B [id number] Family Dependent 4 [id number] For Life Reg [facility] [id number] 4 [id number] MEDICARE P [id number] S [id number] T [id number] T MEDICARE [id number] SP [id number] FOR LIFE [id number] HU2 [id number] MEDICARE C [id number] S [id number] FOR LIFE O [id number] S [id number] ANSI-Commercial [id number] ANSI-Medicare Part B [id number] ANSI-Commercial [id number] ANSI-Medicare Part B [id number] ANSI-Commercial [id number] ANSI-Medicare Part B [id number] For Life [facility] Part B [id number] Family Dependent [id number] Problems, Conditions, and Diagnoses Code Display Name Description Problem Type Effective Dates Data Source(s) G47.33 Obstructive sleep apnea syndrome Obstructive sle ep apnea syndrome Problem 08/17/2020 12:00:00 AM EDT MEDENT ([facility]) I35.1 [id number] Nonrheumatic aortic valve insufficiency P roblem 06/30/2020 12:00:00 AM EDT eCW1 (Formerly [facility]) E83.52 [id number] Hypercalcemia Problem 06/30/2020 12:00:00 AM EDT eCW1 (Formerly [facility]) G47.33 [id number] COLT (obstructive sleep apnea) Problem 12/29/2019 12:00:00 AM EST eCW (Formerly [facility]) Surgeries/Procedures Procedure Description Date Indications Data Source(s) THERAPEUTIC PROPHYLACTIC/DX INJECTION SUBQ/IM 01/10/20 21 12:00:00 AM EST MEDENT ([facility] ) OFFICE OUTPATIENT VISIT 10 MINUTES 01/09/2021 12:00:00 AM EST MEDENT ([facility] ) OFFICE OUTPATIENT VISIT 15 MINUTES 12/21/2020 12:00:00 AM EDT MEDENT ([facility], ) ARTHROCENTESIS ASPIR&/INJECTION MAJOR JT/BURSA 021 12:00:00 AM EDT [facility] X-Ray Spine Lumbosacral Complete Inc Bending Views Min Of 6 11/18/2020 12:00:00 AM EDT MEDENT ([facility] ) X-Ray Hips Bilateral With Pelvis Minimum 5 Views 11/18 12:00:00 AM EDT MEDENT ([facility] ) OFFICE OUTPATIENT VISIT 25 MINUTES 11/18/2020 12:00:00 AM EDT MEDENT ([facility]) ECHO TTHRC R-T 2D W/WOM-MODE COMPL SPEC&COLR DOP 11/07 12:00:00 AM EDT MEDENT ([facility]) OFFICE OUTPATIENT VISIT 15 MINUTES 09/08/2020 12:00:00 AM EDT MEDENT ([facility] ) OFFICE OUTPATIENT VISIT 25 MINUTES 09/08/2020 12:00:00 AM EDT MEDENT ([facility] ) ECG ROUTINE ECG W/LEAST 12 LDS W/I&R 08/17/2020 12:00: 00 AM EDT MEDENT ([facility]) OFFICE OUTPATIENT VISIT 25 MINUTES 08/17/2020 12:00:00 AM EDT MEDENT ([facility]) THERAPEUTIC PROPHYLACTIC/DX INJECTION SUBQ/IM 07/08/19 21 12:00:00 AM EDT MEDENT ([facility] ) OFFICE OUTPATIENT VISIT 25 MINUTES 07/07/2020 12:00:00 AM EDT MEDENT ([facility]) DESTRUCTION PREMALIGNANT LESION 1ST 07/06/2020 12:00:0 0 AM EDT MEDENT ([facility]) DESTRUCTION PREMALIGNANT LESION 2-14 EA 07/06/2020 12: 00:00 AM EDT MEDENT ([facility]) OFFICE OUTPATIENT VISIT 25 MINUTES 07/06/2020 12:00:00 AM EDT MEDENT ([facility]) Results ID Date Data Source [id number] 09/05/2020 10:11:00 AM EDT MEDENT ([facility]) Name Value Range Interpretation Code Description Data Caro rce(s) Supporting Document(s) Glucose, Fasting 103 mg/dL 70-100 MEDENT ([facility]) Blood Urea Nitrogen 13 mg/dL 7-18 MEDENT (No [facility]) Glomerular Filtration Rate Laboratory test result MEDENT ([facility]) <content>Units are mL/min/1.73 m2</content>
<content></content>
<content>Chronic Kidney Disease Staging per NKF:</content>
<content></content>
<content>Stage I & II GFR >=60 Normal to Mildly Decreased</content>
<content>Stage III GFR 30- 59 Moderately Decreased</content>
<content>Stage IV GFR 15-29 Severely Decreased</content>
<content>Stage V GFR <15 Very Little GFR Left</content>
<content>ESRD GFR <15 on SENIOR [employer] SYSTEMS ENGINEER</content>
<content></content> Creatinine For GFR 0.73 mg/dL 0.55-1.30 MEDENT ([facility]) Sodium Level 141 meq/L 136-145 MEDENT ([facility]) Potassium Serum 4.2 meq/L 3.5-5.1 MEDENT ([facility]) Chloride Level 107 meq/L 98-107 MEDENT ([facility]) Carbon Dioxide Level 31 meq/L 21-32 MEDENT ([facility]) Anion Gap 3 meq/L 8-16 MEDENT ([facility]) Calcium Level 9.4 mg/dL 8.8-10.2 MEDENT ([facility]) ID Date Data Source [id number] 09/05/2020 10:11:00 AM EDT MEDENT ([facility]) Name Value Range Interpretation Code Description Data Caro rce(s) Supporting Document(s) Parathyrin.intact [Mass/volume] in Serum or Plasma 34.6 pg/mL 18.5-88 .0 MEDENT ([facility]) ID Date Data Source [id number] 09/05/2020 10:11:00 AM EDT MEDENT ([facility]) Name Value Range Interpretation Code Description Data Caro rce(s) Supporting Document(s) Calcium [Moles/volume] in Serum or Plasma Laboratory test result MEDENT ([facility]) Parathyrin.intact [Mass/volume] in Serum or Plasma 34.6 pg/mL 18.5-88 .0 MEDENT ([facility]) ID Date Data Source [id number] 06/30/2020 02:33:00 PM EDT MEDENT ([facility]) Name Value Range Interpretation Code Description Data Caro rce(s) Supporting Document(s) Calcium [Mass/volume] in Serum or Plasma 10.0 MEDENT ([facility]) Sodium 140 MEDENT ([facility] Carbon dioxide, total [Moles/volume] in Serum or Plasma 25 MEDENT ([facility]) Chloride [Moles/volume] in Serum or Plasma 109 MEDENT ([facility]) Potassium [Moles/volume] in Serum or Plasma 4.3 MEDENT ([facility]) Glucose 110 70-100 MEDENT ([facility] Blood Urea Nitrogen 19 7-18 MEDENT ([facility]) Creatinine 0.66 0.55-1.30 MEDENT ([facility]) Glomerular filtration rate/1.73 sq M.pre dicted [Volume Rate/Area] in Serum or Plasma by Creatinine-based formula (MDRD) Laboratory test result MEDENT ([facility]) ID Date Data Source VITAMIN D 25-HYDROXY 06/30/2020 12:00:00 AM EDT eCW1 ([facility]) Name Value Range Interpretation Code Description Data Caro rce(s) Supporting Document(s) 37.3 30.0-100.0 TOTAL 25(OH) VITAMIN D eC W1 ([facility]) ID Date Data Source PTH INTACT 06/30/2020 12:00:00 AM EDT eCW1 ([facility]) Name Value Range Interpretation Code Description Data Caro rce(s) Supporting Document(s) 29.3 18.5-88.0 PTH INTACT eCW1 ([facility]) ID Date Data Source Basic Metabolic Profile (BMP) 06/30/2020 12:00:00 AM EDT eCW 1 ([facility]) Name Value Range Interpretation Code Description Data Caro rce(s) Supporting Document(s) 110 70-100 GLUCOSE, FASTING eCW1 ([facility]) 19 7-18 BLOOD UREA NITROGEN eCW1 ([facility]) 0.66 0.55-1.30 CREATININE FOR GFR eCW1 ([facility]) 140 136-145 SODIUM LEVEL eCW1 ([facility]) 4.3 3.5-5.1 POTASSIUM SERUM eCW1 ([facility]) > 60.0 >32 GLOMERULAR FILTRATION RATE eCW 1 ([facility]) 109 98-107 CHLORIDE LEVEL eCW1 ([facility]) 25 21-32 CARBON DIOXIDE LEVEL eCW1 ([facility]) 10.1 8.8-10.2 CALCIUM LEVEL eCW1 ([facility]) ID Date Data Source [id number] 06/30/2020 12:00:00 AM EDT eCW1 ([facility]) Name Value Range Interpretation Code Description Data Caro rce(s) Supporting Document(s) Hemoglobin A1c/Hemoglobin.total in Blood 6.3 HEMOGLOBIN A1c eCW1 ([facility]) ID Date Data Source [id number] 06/27/2020 10:30:00 AM EDT MEDENT ([facility]) Name Value Range Interpretation Code Description Data Caro rce(s) Supporting Document(s) Calcium [Moles/volume] in Serum or Plasma 11.1 mg/dL 8.8-10.2 MEDENT ([facility]) Calcidiol [Mass/volume] in Serum or Plasma 27.3 ng/mL 30.0-100.0 MEDENT ([facility]) Procedure Social History Code Duration Value Status Description Data Source(s ) Smoking 01/03/2021 12:00:00 AM EST Never Smoker completed Never S moker eCW1 ([facility]) Smoking 12/21/2020 12:00:00 AM EDT Patient is a former smoker completed Patient is a former smoker MEDENT ([facility] ) Smoking 12/12/2020 12:00:00 AM EDT Never Smoker completed Never S moker eCW1 ([facility]) Smoking 09/08/2020 12:00:00 AM EDT Patient has never smoked co mpleted Patient has never smoked MEDENT ([facility]) Smoking 08/17/2020 12:00:00 AM EDT Patient has never smoked co mpleted Patient has never smoked MEDENT ([facility]) Smoking 06/30/2020 12:00:00 AM EDT Never Smoker completed Never S moker eCW1 ([facility]) Smoking 06/30/2020 12:00:00 AM EDT Never Smoker completed Never S moker eCW1 ([facility]) Smoking 06/30/2020 12:00:00 AM EDT Never Smoker completed Never S moker eCW1 ([facility]) Smoking 06/30/2020 12:00:00 AM EDT Never Smoker completed Never S moker eCW1 ([facility]) Smoking 12/29/2019 12:00:00 AM EST Never Smoker completed Never S moker eCW1 ([facility]) Smoking 12/29/2019 12:00:00 AM EST Never Smoker completed Never S moker eCW1 ([facility]) Vital Signs ID Date Data Source UNK Name Value Range Interpretation Code Description Data Source(s) Diastolic blood pressure 70 mm[Hg] 70 mm[Hg] eCW1 ([facility]) Systolic blood pressure 110 mm[Hg] 110 mm[Hg] e CW1 ([facility]) Body weight 114.6 [lb_av] 114.6 [lb_av] eCW1 ([facility]) Body height 56 [in_i] 56 [in_i] eCW1 ([facility]) Body mass index (BMI) [Ratio] 25.69 kg/m2 25.69 kg/m2 eCW1 ([facility]) Heart rate 87 /min 87 /min eCW1 ([facility]) Respiratory rate 18 /min 18 /min eCW1 ([facility]) Body temperature 96.1 [degF] 96.1 [degF] eCW1 ( [facility]) Systolic blood pressure 100 mm[Hg] 100 mm[Hg] M EDENT ([facility], ) Diastolic blood pressure 68 mm[Hg] 68 mm[Hg] MEDENT ([facility]) Heart rate 67 /min 67 /min [facility], ) Oxygen saturation in Arterial blood by Pulse oximetry 98 % 98 % [facility], ) Respiratory rate 18 /min 18 /min MEDENT ( [facility], ) Body height 57 [in_i] 57 [in_i] MEDENT ([facility], ) 4'9" Body weight 111.50 [lb_av] 111.50 [lb_av] MEDEN T ([facility], ) Body mass index (BMI) [Ratio] 24.1 kg/m2 24.1 k g/m2 [facility] ([facility], ) [place] body weight 100 [lb_av] 100 [lb_av] MEDEN T ([facility], ) Body weight 50.576 kg 50.576 kg [facility] ([facility]) Body surface area Derived from formula 1.40 m2 1.40 m2 [facility] ([facility], ) Body temperature 96.6 [degF] 96.6 [degF] MEDENT ([facility]) Body height 55 [in_i] 55 [in_i] MEDENT ([facility] ) 4'7" Body weight 112.25 [lb_av] 112.25 [lb_av] MEDEN T ([facility]) Body mass index (BMI) [Ratio] 26.1 kg/m2 26.1 k g/m2 MEDENT ([facility] ) Diastolic blood pressure 70 mm[Hg] 70 mm[Hg] MEDENT ([facility] ) Heart rate 79 /min 79 /min MEDENT ([facility] ) Systolic blood pressure 120 mm[Hg] 120 mm[Hg] M EDENT ([facility] ) Body height 55.6 [in_i] 55.6 [in_i] MEDENT ([facility] ) 4'7.60" Body weight 116.38 [lb_av] 116.38 [lb_av] MEDEN T ([facility] ) Body mass index (BMI) [Ratio] 26.5 kg/m2 26.5 k g/m2 MEDENT ([facility] ) Oxygen saturation in Arterial blood by Pulse oximetry 96 % 96 % MEDENT ([facility] ) Body mass index (BMI) [Ratio] 24.9 kg/m2 24.9 k g/m2 MEDENT ([facility]) Body weight 115.00 [lb_av] 115.00 [lb_av] MEDEN T ([facility]) Diastolic blood pressure--sitting 78 mm[Hg] 78 mm[Hg] MEDENT ([facility]) Ra, medium cuff Body height 57 [in_i] 57 [in_i] [facility] ([facility]) 4'9" Heart rate 54 /min 54 /min MED[facility] ([facility]) Systolic blood pressure--sitting 122 mm[Hg] 122 mm[Hg] MEDENT ([facility]) Ra, medium cuff Heart rate 85 /min 85 /min MEDENT ([facility] ) Systolic blood pressure 122 mm[Hg] 122 mm[Hg] M EDENT ([facility] ) Diastolic blood pressure 78 mm[Hg] 78 mm[Hg] MEDENT ([facility] ) Body temperature 97.1 [degF] 97.1 [degF] MEDENT ([facility] ) Body height 55.6 [in_i] 55.6 [in_i] MEDENT ([facility] ) 4'7.60" Body weight 119.25 [lb_av] 119.25 [lb_av] MEDEN T ([facility]) Body mass index (BMI) [Ratio] 27.1 kg/m2 27.1 k g/m2 MEDENT ([facility] ) Oxygen saturation in Arterial blood by Pulse oximetry 92 % 92 % MED[facility] ([facility]) Systolic blood pressure 116 mm[Hg] 116 mm[Hg] M EDENT ([facility]) Diastolic blood pressure 64 mm[Hg] 64 mm[Hg] MEDENT ([facility]) Body weight 115.00 [lb_av] 115.00 [lb_av] MEDEN T ([facility]) Body temperature 96.2 [degF] 96.2 [degF] MEDENT ([facility]) Body weight 120 [lb_av] 120 [lb_av] eCW1 ([facility]) Body height 56 [in_i] 56 [in_i] eCW1 ([facility]) Body mass index (BMI) [Ratio] 26.90 kg/m2 26.90 kg/m2 eCW1 ([facility]) Heart rate 74 /min 74 /min eCW1 ([facility]) Respiratory rate 18 /min 18 /min eCW1 ([facility]) Body temperature 96.4 [degF] 96.4 [degF] eCW1 ( [facility]) Systolic blood pressure 120 mm[Hg] 120 mm[Hg] e CW1 ([facility]) Diastolic blood pressure 70 mm[Hg] 70 mm[Hg] eCW1 ([facility]) Body weight 115 [lb_av] 115 [lb_av] eCW1 ([facility]) Body height 56 [in_i] 56 [in_i] eCW1 ([facility]) Body mass index (BMI) [Ratio] 25.78 kg/m2 25.78 kg/m2 eCW1 ([facility]) Heart rate 98 /min 98 /min eCW1 ([facility]) Respiratory rate 18 /min 18 /min eCW1 ([facility]) Body temperature 96 [degF] 96 [degF] eCW1 ([facility]) Systolic blood pressure 120 mm[Hg] 120 mm[Hg] e CW1 ([facility]) Diastolic blood pressure 66 mm[Hg] 66 mm[Hg] eCW1 ([facility]) Patient Treatment Plan of Care Planned Activity Planned Date Details Description Data Source (s) Vitamin D-3 25 MCG (1000 UT) 03/07/2020 12:00:00 AM EST eCW1 ([facility]) Vitamin D-3 25 MCG (1000 UT) 03/07/2020 12:00:00 AM EST eCW1 ([facility]) Oyster Calcium + D 500-125 MG-UNIT 12/29/2019 12:00:00 AM EST eCW1 ([facility]) Diclofenac Sodium 0.01 MG/MG Topical Gel [Voltaren] 12/29/19 12:00:00 AM EST eCW1 ([facility]) Diclofenac Sodium 0.01 MG/MG Topical Gel [Voltaren] 12/29/19 12:00:00 AM EST eCW1 ([facility]) Oyster Calcium + D 500-125 MG-UNIT 12/29/2019 12:00:00 AM EST eCW1 ([facility]) Diclofenac Sodium 0.01 MG/MG Topical Gel [Voltaren] 12/29/19 12:00:00 AM EST eCW1 ([facility]) Diclofenac Sodium 0.01 MG/MG Topical Gel [Voltaren] 12/29/19 12:00:00 AM EST eCW1 ([facility]) Diclofenac Sodium 0.01 MG/MG Topical Gel [Voltaren] 12/29/19 12:00:00 AM EST eCW1 ([facility]) Diclofenac Sodium 0.01 MG/MG Topical Gel [Voltaren] 12/29/19 12:00:00 AM EST eCW1 ([facility]) Oyster Calcium + D 500-125 MG-UNIT 12/29/2019 12:00:00 AM EST eCW1 ([facility]) Diclofenac Sodium 0.01 MG/MG Topical Gel [Voltaren] 12/29/19 12:00:00 AM EST eCW1 ([facility]) Oyster Calcium + D 500-125 MG-UNIT 12/29/2019 12:00:00 AM EST eCW1 ([facility]) Diclofenac Sodium 0.01 MG/MG Topical Gel [Voltaren] 12/29/19 12:00:00 AM EST eCW1 ([facility])
--- OUTSIDE RECORDS SUMMARY | 2021-01-28 10:43 | CCD ---
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 Name Role Phone Kendra Underwood Unavailable PROBLEMS Type Condition ICD9-CM Code [id number] Code Onset Dates Condition S tatus W/U Status Risk SNOMED Code Notes Problem Mixed hyperlipidemia E78.2 Active confirmed 459239207 Problem Vitamin D deficiency, unspecified E55.9 Active con firmed 75628970 Problem Nonrheumatic aortic valve insufficiency I35.1 Active confirmed 912801335 Problem Hypercalcemia E83.52 Active confirmed 881900 09 Problem Impaired fasting glucose R73.01 Active confirmed 658238837 Problem Age-related osteoporosis without current pathological fracture M81.0 Active confirmed 03406720 Problem 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 Acti ve confirmed [id number] Problem COLT (obstructive sleep apnea) G47.33 Active confirm ed [id number] ALLERGIES Allergen (clinical drug ingredient) Drug/Non Drug Allergy do cumented on EMR Reaction Allergy Type Onset Date Status Pollen Pollen runny nose Drug Allergy Active ENCOUNTERS from 1940 to 2020-12-23 Encounter Location Date Provider Diagnosis [address] [phone] [place] [address] Nov, Kendra Underwood Age-related osteoporosis wit hout current pathological fracture M81.0 ; Mixed hyperlipidemia E78.2 and Impaired fasting glucose R73.01 IMMUNIZATIONS Vaccine Route Administration Date Status Influenza [...] Education Language: Question Answer Notes Languages spoken: Lithuanian japenesse Hoahaoism: Question Answer Notes Hoahaoism No quaker beliefs that would impact health care. Sexual [...] Notes Start Da te End Date Status Vitamin D-3 25 MCG (1000 UT) 1 capsule Orally Once a day for 90 day(s) Feb, Active Oyster Calcium + D 500-125 MG-UNIT 1 tablet Orally Twice a day f or 90 days Dec, Active Multi Complete - 1 tab Orally once daily for 90 days 2015 Active Prolia 60 MG/ML Subcutaneous every 6 months Ac tive Atorvastatin Calcium 40 MG 1 tablet Orally Once a day for 90 day s Jul, Active Tylenol 325 MG 1 tablet as needed Orally every 6 hrs Active Voltaren 1 % 2 g as needed Transdermal four times daily Dec, Active PROCEDURES No Information RESULTS No Results REASON FOR VISIT vit MEDICAL (GENERAL) HISTORY Type Description Date Medical [...] - Dr. Deleon Medical History Foillows with STRATEGIC ADVISOR annually Surgical History Left shoulder surgery 2002 [...] Notes Treatment Notes Treatm ent Clinical Notes Nov, Age-related osteoporosis wit hout current pathological fracture (ICD-10 - M81.0) Nov, Mixed hyperlipidemia (ICD-10 - E78.2) Nov, Impaired fasting glucose (ICD-10 - R73.01) PLAN OF TREATMENT Medication Medication Name Sig Start Date Stop Date Oyster Calcium + D 500-125 MG-UNIT 1 tablet Orally Twice a d ay for 90 days Dec, Atorvastatin Calcium 40 MG 1 tablet Orally Once a day for 90 day s Jul, Voltaren 1 % 2 g as needed Transdermal four times daily 2019 Future Test Test Name Order Date Comprehensive Metabolic Profile (CMP) [id number] LIPID PANEL (CARDIAC RISK) [id number] HEMOGLOBIN A1c [id number] Next Appt Details Provider Name:Kendra Underwood, 2021-01-03 10:00:00 AM, [address] [facility], , [place], [address], Insurance Providers Payer Name Payer Address Payer Phone Insured Name Patient Relati onship to Insured Coverage Start Date Coverage End Date MEDICARE Part A and B [address] [facility] [phone] MARISSA QIU FOR LIFE [address] [facility] [address] Jose Qiu
--- OUTSIDE RECORDS SUMMARY | 2021-01-28 10:43 | CCD | Continuity of Care Document ---
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 AUTM [phone] Damien Thayer PA-C AUTM Unavailable Kendra Underwood M.D. AUTM [phone] Problems Active Problems Provider Date Obstructive sleep apnea syndrome Donald Khalil MD Onset : 12/12/2012 Chronic rhinitis Donald Khalil MD Onset: 12/12/2012 Social History Type Date Description Comments Sex Unknown Recreational Drug Use Never Used Drugs Tobacco Use Start: Unknown End: Unknown Patient is a former smoker Smoking Status Reviewed: 12/21/20 Patient is a former smoker Allergies and adverse reactions Active Allergies Criticality Reaction | Severity Comments Date Aspirin Unable to assess criticality 11/28/2012 Medications Active Medications SIG Qnty Indications Ordering Provide r Date Claritin 10mg Capsules 10 mg po once per day prn 30Tabs Unknown Multi-Vitamins Tablets 1 po qd Unknown Calcium 600 + D [id number] Tab lets 1 po daily Unknown Prolia 60mg/ml Soln Prefill Syring e 1 injection twice per year Unknown 000 BIPAP Device 12/31([facility]) Unknown Lipitor 40mg Tablets 1 tab by mouth every day Unknown Vitamin D3 25mcg (1000 Ut) Tablets 1 tab by mouth every day Unknown Immunizations CPT Code Status Date Vaccine Lot # [id number] Given 11/26/2014 Influenza Virus Split 3 Yrs And Above For Intramuscular Use 05878 Given 12/17/2012 Influenza Virus Split 3 Yrs And Above For Intramuscular Use Vital Signs Date Vital Result Comment 12/21/2020 11:16am BP Systolic 100 mmHg BP Diastolic 68 mmHg Heart Rate 67 /min O2 % BldC Oximetry 98 % Respiratory Rate 18 /min Height 57 inches 4'9" Weight 111.50 lb BMI (Body Mass Index) 24.1 kg/m2 [place] Body Weight 100 lb Weight 50.576 kg BSA (Body Surface Area) 1.40 m2 02/21/2015 11:48am BP Systolic 131 mmHg BP Diastolic 94 mmHg Height 57 inches 4'9" Weight 112.50 lb BMI (Body Mass Index) 24.3 kg/m2 [place] Body Weight 100 lb Weight 51.030 kg BSA (Body Surface Area) 1.41 m2 Results Description No Information Available Procedures Date Code Description Status 12/21/2020 30472 Office/Outpatient Established Lo w MDM 20-29 Min Completed Medical Devices Description No Information Available Encounters Type Date Location Provider Dx Diagnosis Office Visit 12/21/2020 11:30a [facility] Pulmonary/Thoracic Yady trejo A.N.PFerdinand G47.33 Obstructive sleep apnea (adult) (pediatr ic) Assessments Date Code Description Provider 12/21/2020 G47.33 Obstructive sleep apnea (adult) (pediatric) Brett Matute.N.PFerdinand Plan of Treatment Future Appointment(s):* 12/21/2021 11:00 am - Yady Garay A.N.PFerdinand at [facility] Pulmonary/Thoracic 12/21/2020 - Brett Matute.N.PFerdinand* G47.33 Obstructive sleep apnea (adult) (pediatric) * * Follow up:* Follow up in 12 months with compliance report for COLT-30 Functional Status Description No Information Available Mental Status Description No Information Available Referrals Description No Information Available
--- OUTSIDE RECORDS SUMMARY | 2021-01-28 10:43 | CCD ---
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 Role Phone Kendra Underwood Unavailable PROBLEMS Type Condition ICD9-CM Code SRV74-FS Code Onset Dates Condition S tatus W/U Status Risk SNOMED Code Notes Problem Mixed hyperlipidemia E78.2 Active confirmed 808468203 Problem COLT (obstructive sleep apnea) G47.33 Active confirm ed 45318446 Problem Nonrheumatic aortic valve insufficiency I35.1 Active confirmed 475713583 Problem Vitamin D deficiency, unspecified E55.9 Active con firmed 76979788 Problem Impaired fasting glucose R73.01 Active confirmed 050847183 Problem Age-related osteoporosis without current pathological fracture M81.0 Active confirmed 74554612 Problem 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 Acti ve confirmed [id number] ALLERGIES Allergen (clinical drug ingredient) Drug/Non Drug Allergy do cumented on EMR Reaction Allergy Type Onset Date Status Pollen Pollen runny nose Drug Allergy Active ENCOUNTERS from 1940 to 2021-01-06 Encounter Location Date Provider Diagnosis [address] [phone] [place] [address] Dec, Kendra Underwood Annual physical exam Z00.00 ; Impaired fasting glucose R73.01 ; Mixed hyperlipidemia E78.2 ; Nonrheumatic aortic valve insufficiency I35.1 ; COLT (obstructive sleep apnea) G47.33 ; 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 ; Age-related osteoporosis without current pathological fracture M81.0 and Vitamin D deficiency, unspecified E55.9 IMMUNIZATIONS Vaccine Route Administration Date Status Influenza [...] Education Language: Question Answer Notes Languages spoken: Macedonian japenesse Adventism: Question Answer Notes Adventism No episcopalian beliefs that would impact health care. Sexual [...] REASON FOR REFERRAL No Information VITAL SIGNS Weight 114.6 lbs Dec, Height 56 in Dec, BMI 25.69 kg/m2 Dec, Heart Rate 87 /min Dec, Respiratory Rate 18 /min Dec, Temperature 96.1 degrees Fahrenheit Dec, Oximetry 96 Dec, Blood pressure systolic 110 mm Hg Dec, Blood pressure diastolic 70 mm Hg Dec, MEDICATIONS Medication SIG (Take, Route, Frequency, Duration) Notes Start Da te End Date Status Tylenol 325 MG 1 tablet as needed Orally every 6 hrs Active Vitamin D-3 25 MCG (1000 UT) 1 capsule Orally Once a day Feb, Active Atorvastatin Calcium 40 MG 1 tablet Orally Once a day 2019 Active Multi Complete - 1 tab Orally once daily for 90 days 2015 Active Prolia 60 MG/ML Subcutaneous every 6 months Ac tive Voltaren 1 % 2 g as needed Transdermal four times daily Dec, Active Oyster Calcium + D 500-125 MG-UNIT 1 tablet Orally once a day Dec, Active PROCEDURES No Information RESULTS No Results REASON FOR VISIT Annual MEDICAL (GENERAL) HISTORY Type Description Date Medical [...] - Dr. Deleon Medical History Foillows with PRODUCT COORDINATOR annually Surgical History Left shoulder surgery 2002 [...] Notes Treatment Notes Treatm ent Clinical Notes Dec, Impaired fasting glucose (ICD-10 - R73.01) A1c is stable. Dec, Annual physical exam (ICD-10 - Z00.00) Medical, surgical, and family histories were reviewed and updated. Dec, Mixed hyperlipidemia (ICD-10 - E78.2) Lipids at goal. Dec, Nonrheumatic aortic valve insufficiency (ICD-10 - I35.1) Dec, COLT (obstructive sleep apnea) (ICD-10 - G47.33) Reports she is compliant with CPAP nightly. Dec, Primary osteoarthritis of right hip (ICD-10 - M1 6.11) She states she is doing PT exercises at home regularly; I advised f/u with Ortho if pain persists or worsens. She states pain is stable and tolerable and she will continue with home exercises. Dec, Age-related osteoporosis wit hout current pathological fracture (ICD-10 - M81.0) Managed by Dr. Deleon. Dec, Vitamin D deficiency, unspecified (ICD-10 - E55. 9) PLAN OF TREATMENT Medication Medication Name Sig Start Date Stop Date Tylenol 325 MG 1 tablet as needed Orally every 6 hrs Prolia 60 MG/ML Subcutaneous Atorvastatin Calcium 40 MG 1 tablet Orally Once a day Jul, Voltaren 1 % 2 g as needed Transdermal four times daily 2019 Oyster Calcium + D 500-125 MG-UNIT 1 tablet Orally once a day Dec, Vitamin D-3 25 MCG (1000 UT) 1 capsule Orally Once a day Feb, Treatment Notes Assessment Notes Clinical Notes Impaired fasting glucose A1c is stable. Annual physical exam Medical, surgical, and family histories were reviewed and updated. Mixed hyperlipidemia Lipids at goal. COLT (obstructive sleep apnea) Reports rivera vaughn is compliant with CPAP nightly. Primary osteoarthritis of right hip She states she is doing PT exercises at home regularly; I advised f/u with Ortho if pain persists or worsens. She states pain is stable and tolerable and she will continue with home exercises. Age-related osteoporosis without current pathological fractu re Managed by Dr. Deleon. Next Appt Details 6 months Reason:F/u med prob Provider Name:Kendra Underwood, 2021-07-11 10:30:00 AM, [address] [facility], , [place], [address], Follow Up:6 monthsF/u med prob Insurance Providers Payer Name Payer Address Payer Phone Insured Name Patient Relati onship to Insured Coverage Start Date Coverage End Date FOR LIFE [address] [facility] [phone] Jose Qiu MEDICARE Part A and B [address] [facility] [id number] MARISSA QIU self
[2021-01-28] MEDS ORDERED: BACI500O21 TOP (11:47)
[2021-01-28] MEDS ORDERED: CEPH500C PO (11:47)
--- OUTSIDE RECORDS SUMMARY | 2021-01-28 11:49 | CCD ---
Author Author [facility] Organization [facility] Address Unknown Phone Unavailable Care Team Providers Care Senior Clinician Name Role Phone Wayne Fuentes PRINTING PRESS MACHINIST Unavailable Unavailable Alfredo, L Yady PRINTING PRESS MACHINIST Unavailable Unavailable Alfredo, L Yady PRINTING PRESS MACHINIST Unavailable Unavailable Alfredo, L Yady PRINTING PRESS MACHINIST Unavailable Unavailable Alfredo, L Yady PRINTING PRESS MACHINIST Unavailable Unavailable Alfredo, L Yady PRINTING PRESS MACHINIST Unavailable Unavailable Alfredo, L Yady PRINTING PRESS MACHINIST Unavailable Unavailable Alfredo, L Yady PRINTING PRESS MACHINIST Unavailable Unavailable Alfredo, L Yady PRINTING PRESS MACHINIST Unavailable Unavailable Alfredo, L Yady PRINTING PRESS MACHINIST Unavailable Unavailable Alfredo, L Yady PRINTING PRESS MACHINIST Unavailable Unavailable Alfredo, L Yady PRINTING PRESS MACHINIST Unavailable Unavailable Alfredo, L Yady PRINTING PRESS MACHINIST Unavailable Unavailable Alfredo, L Yady PRINTING PRESS MACHINIST Unavailable Unavailable Alfredo, L Yady PRINTING PRESS MACHINIST Unavailable Unavailable Alfredo, L Yady PRINTING PRESS MACHINIST Unavailable Unavailable Alfredo, L Yady PRINTING PRESS MACHINIST Unavailable Unavailable Alfredo, L Yady PRINTING PRESS MACHINIST Unavailable Unavailable Alfredo, L Aydy PRINTING PRESS MACHINIST Unavailable Unavailable Alfredo, L Yady PRINTING PRESS MACHINIST Unavailable Unavailable Alfredo, L Yady PRINTING PRESS MACHINIST Unavailable Unavailable Alfredo, L Yady PRINTING PRESS MACHINIST Unavailable Unavailable Alfredo, L Yady PRINTING PRESS MACHINIST Unavailable Unavailable Alfredo, L Yady PRINTING PRESS MACHINIST Unavailable Unavailable Alfredo, L Yady PRINTING PRESS MACHINIST Unavailable Unavailable VENESSA, B KIKA PRINTING PRESS MACHINIST Unavailable Unavailable VENESSA, B KIKA PRINTING PRESS MACHINIST Unavailable Unavailable VENESSA, B KIKA PRINTING PRESS MACHINIST Unavailable Unavailable VENESSA, B KIKA PRINTING PRESS MACHINIST Unavailable Unavailable VENESSA, B KIKA PRINTING PRESS MACHINIST Unavailable Unavailable VENESSA, B KIKA PRINTING PRESS MACHINIST Unavailable Unavailable VENESSA, B KIKA PRINTING PRESS MACHINIST Unavailable Unavailable VENESSA, B KIKA PRINTING PRESS MACHINIST Unavailable Unavailable VENESSA, B KIKA PRINTING PRESS MACHINIST Unavailable Unavailable VENESSA, B KIKA PRINTING PRESS MACHINIST Unavailable Unavailable VENESSA, B KIKA PRINTING PRESS MACHINIST Unavailable Unavailable VENESSA, B KIKA PRINTING PRESS MACHINIST Unavailable Unavailable VENESSA, B KIKA PRINTING PRESS MACHINIST Unavailable Unavailable VENESSA, B KIKA PRINTING PRESS MACHINIST Unavailable Unavailable VENESSA, B KIKA PRINTING PRESS MACHINIST Unavailable Unavailable VENESSA, B KIKA PRINTING PRESS MACHINIST Unavailable Unavailable VENESSA, B KIKA PRINTING PRESS MACHINIST Unavailable Unavailable VENESSA, B KIKA PRINTING PRESS MACHINIST Unavailable Unavailable VENESSA, B KIKA PRINTING PRESS MACHINIST Unavailable Unavailable VENESSA, B KIKA PRINTING PRESS MACHINIST Unavailable Unavailable VENESSA, B KIKA PRINTING PRESS MACHINIST Unavailable Unavailable VENESSA, B KIKA PRINTING PRESS MACHINIST Unavailable Unavailable VENESSA, B KIKA PRINTING PRESS MACHINIST Unavailable Unavailable VENESSA, B KIKA PRINTING PRESS MACHINIST Unavailable Unavailable VENESSA, B KIKA PRINTING PRESS MACHINIST Unavailable Unavailable VENESSA, B KIKA PRINTING PRESS MACHINIST Unavailable Unavailable VENESSA, B KIKA PRINTING PRESS MACHINIST Unavailable Unavailable VENESSA, B KIKA PRINTING PRESS MACHINIST Unavailable Unavailable VENESSA, B KIKA PRINTING PRESS MACHINIST Unavailable Unavailable VENESSA, B KIKA PRINTING PRESS MACHINIST Unavailable Unavailable VENESSA, B KIKA PRINTING PRESS MACHINIST Unavailable Unavailable VENESSA, B KIKA PRINTING PRESS MACHINIST Unavailable Unavailable VENESSA, B KIKA PRINTING PRESS MACHINIST Unavailable Unavailable VENESSA, B KIKA PRINTING PRESS MACHINIST Unavailable Unavailable VENESSA, B KIKA PRINTING PRESS MACHINIST Unavailable Unavailable VENESSA, B KIKA PRINTING PRESS MACHINIST Unavailable Unavailable VENESSA, B KIKA PRINTING PRESS MACHINIST Unavailable Unavailable VENESSA, B KIKA PRINTING PRESS MACHINIST Unavailable Unavailable VENESSA, B KIKA PRINTING PRESS MACHINIST Unavailable Unavailable VENESSA, B KIKA PRINTING PRESS MACHINIST Unavailable Unavailable VENESSA, B KIKA PRINTING PRESS MACHINIST Unavailable Unavailable VENESSA, B KIKA PRINTING PRESS MACHINIST Unavailable Unavailable VENESSA, B KIKA PRINTING PRESS MACHINIST Unavailable Unavailable VENESSA, B KIKA PRINTING PRESS MACHINIST Unavailable Unavailable VENESSA, B KIKA PRINTING PRESS MACHINIST Unavailable Unavailable VENESSA, B KIKA PRINTING PRESS MACHINIST Unavailable Unavailable VENESSA, B KIKA PRINTING PRESS MACHINIST Unavailable Unavailable VENESSA, B KIKA PRINTING PRESS MACHINIST Unavailable Unavailable VENESSA, B KIKA PRINTING PRESS MACHINIST Unavailable Unavailable VENESSA, B KIKA PRINTING PRESS MACHINIST Unavailable Unavailable VENESSA, B KIKA PRINTING PRESS MACHINIST Unavailable Unavailable VENESSA, B KIKA PRINTING PRESS MACHINIST Unavailable Unavailable VENESSA, B KIKA PRINTING PRESS MACHINIST Unavailable Unavailable VENESSA, B KIKA PRINTING PRESS MACHINIST Unavailable Unavailable VENESSA, B KIKA PRINTING PRESS MACHINIST Unavailable Unavailable VENESSA, B KIKA PRINTING PRESS MACHINIST Unavailable Unavailable VENESSA, B KIKA PRINTING PRESS MACHINIST Unavailable Unavailable VENESSA, B KIKA PRINTING PRESS MACHINIST Unavailable Unavailable VENESSA, B KIKA PRINTING PRESS MACHINIST Unavailable Unavailable VENESSA, B KIKA PRINTING PRESS MACHINIST Unavailable Unavailable VENESSA, B KIKA PRINTING PRESS MACHINIST Unavailable Unavailable VENESSA, B KIKA PRINTING PRESS MACHINIST Unavailable Unavailable Fish, Leyla Betancourt MD Unavailable [...] RYANNE PA Unavailable Unavailable Lockerbie, S Nehal AUTOMATIC CORN GRINDER OPERATOR-C Unavailable Unavailable Lockerbie, S Nehal AUTOMATIC CORN GRINDER OPERATOR-C Unavailable Unavailable Lockerbie, S Nehal AUTOMATIC CORN GRINDER OPERATOR-C Unavailable Unavailable Lockerbie, S Nehal AUTOMATIC CORN GRINDER OPERATOR-C Unavailable Unavailable Lockerbie, S Nehal AUTOMATIC CORN GRINDER OPERATOR-C Unavailable Unavailable Lockerbie, S Nehal AUTOMATIC CORN GRINDER OPERATOR-C Unavailable Unavailable Lockerbie, S Nehal AUTOMATIC CORN GRINDER OPERATOR-C Unavailable Unavailable Lockerbie, S Nehal AUTOMATIC CORN GRINDER OPERATOR-C Unavailable Unavailable Lockerbie, S Nehal AUTOMATIC CORN GRINDER OPERATOR-C Unavailable Unavailable Lockerbie, S Nehal AUTOMATIC CORN GRINDER OPERATOR-C Unavailable Unavailable Lockerbie, S Nehal AUTOMATIC CORN GRINDER OPERATOR-C Unavailable Unavailable Lockerbie, S Nehal AUTOMATIC CORN GRINDER OPERATOR-C Unavailable Unavailable Lockerbie, S Nehal AUTOMATIC CORN GRINDER OPERATOR-C Unavailable Unavailable Lockerbie, S Nehal AUTOMATIC CORN GRINDER OPERATOR-C Unavailable Unavailable Lockerbie, S Nehal AUTOMATIC CORN GRINDER OPERATOR-C Unavailable Unavailable Lockerbie, S Nehal AUTOMATIC CORN GRINDER OPERATOR-C Unavailable Unavailable Lockerbie, S Nehal AUTOMATIC CORN GRINDER OPERATOR-C Unavailable Unavailable Lockerbie, S Nehal AUTOMATIC CORN GRINDER OPERATOR-C Unavailable Unavailable Lockerbie, S Nehal AUTOMATIC CORN GRINDER OPERATOR-C Unavailable Unavailable Lockerbie, S Nehal AUTOMATIC CORN GRINDER OPERATOR-C Unavailable Unavailable Lockerbie, S Nehal AUTOMATIC CORN GRINDER OPERATOR-C Unavailable Unavailable Lockerbie, S Nehal AUTOMATIC CORN GRINDER OPERATOR-C Unavailable Unavailable Lockerbie, S Nehal AUTOMATIC CORN GRINDER OPERATOR-C Unavailable Unavailable Lockerbie, S Nehal AUTOMATIC CORN GRINDER OPERATOR-C Unavailable Unavailable Re-disclosure Warning The records that [...] is protected by Article 27-F of the [facility] Public Health law. If you continue you may have access to information: Regarding HIV / AIDS; Provided by facilities licensed or operated by the [facility] Office of Mental Health; or Provided by the [facility] Office for People With Developmental Disabilities. If such information is present, then the following [facility] mandated warning applies: This information has been [...] law may result in a fine or correction sentence or both. A general authorization for [...] ACID [MAMADOU EPAR]; ACETYLSALICYLIC ACID [INCI]; ASPIRIN [JAIL]; ASPIRIN COMPONENT OF AXOTAL; ASPIRIN COMPONENT OF [...] COMPONENT ASPIRIN; MEPRO- ASPIRIN COMPONENT ASPIRIN; ASPIRIN [MT]; MEASURIN MED[facility] ([facility]) Family History Family Member Name Family Member Gender Family Member Status Date o f Status Description Data Source(s) Unknown Male Problem MEDENT ([facility]) Unknown Female Problem MED[facility] ([facility] ) Unknown Male Problem [facility]) Encounters Encounter Providers Location Date Indications Data Source(s ) Outpatient Attender: Asia Deleon MD Physical Therapy 01/09 12:30:00 PM EST [facility] ([facility]) Outpatient [address] [facility] [address] 01/03/2021 12:00:00 AM EST eCW1 ([facility]) Unknown [address] [facility] [address] 12/23/2020 12:00:00 AM EDT eCW1 ([facility]) Outpatient Attender: Yady Ramírez/Donis/Iain/Reindl 12/21/2020 11:30:00 AM EDT MEDENT ([facility]) Outpatient Attender: Wendy DENTON Physical Therapy 09:15:00 AM EDT MED[facility] ([facility]) Unknown [address] [facility] [address] 11/10/2020 12:00:00 AM EDT eCW1 ([facility]) OFFICE OUTPATIENT VISIT 15 MINUTES Attender: KIKA CLIFFORD NP Physical Therapy 09/08/2020 10:30:00 AM EDT MEDENT ([facility]) Outpatient Attender: RYANNE DENTON Main Office 08/17/2020 0 1:00:00 PM EDT [facility] ([facility]) Unknown [address] [facility] [address] 08/16/2020 12:00:00 AM EDT eCW1 ([facility]) Outpatient Attender: Asia Deleon MD Physical Therapy 07/07 01:30:00 PM EDT MED[facility] ([facility]) Outpatient Attender: Nehal GARCÍAP-C Main Office 07/06/2020 10:30:00 AM EDT MED[facility] ([facility]) Unknown [address] [facility] [address] 07/01/2020 12:00:00 AM EDT eCW1 ([facility]) Outpatient [address] [facility] [address] 06/30/2020 12:00:00 AM EDT eCW1 ([facility]) Unknown [address] [facility] [address] 03/07/2020 12:00:00 AM EST eCW1 ([facility]) Outpatient Attender: Yady Ramírez/Donis/Iain/Reindl 02/10/2020 10:30:00 AM EST MED[facility] ([facility] Outpatient [address] [facility] [address] 12/29/2019 12:00:00 AM EST eCW1 ([facility]) Medications Medication Brand Name Start Date Product Form Dose Route Admi nistrative Instructions Pharmacy Instructions Status Indications Reaction Description Data Source(s) Prolia [facility]#[id number] (60mg Syringe)1MG 01/09/2021 12:00:00 AM EST completed MED[facility] ([facility]) Medication administered onsite 240 mcg/0.7 mL 12/12/2020 12:00:00 AM EDT syringe 0 INJECT DIRECTED INJECT DIRECTED SOLD: 12/12/2020 [facility] U[facility] 400 MG/ML Topical Cream Urea 07/19/2020 12:00:00 AM EDT active MEDENT ([facility]) Prolia [facility]#[id number] (60mg Syringe)1MG 07/07/2020 12:00:00 AM EDT completed MEDENT ([facility] ) Medication administered onsite 1 ML denosumab 60 MG/ML Prefilled Syringe [Prolia] Prolia 07/07/2020 12:00:00 AM EDT active MEDENT ([facility]) Vitamin D-3 25 MCG (1000 UT) Vitamin D-3 25 MCG (1000 UT) 12:00:00 AM EST 1.0 {capsule} active Vitamin D- 3 25 MCG (1000 UT) eCW1 ([facility]) Vitamin D-3 25 MCG (1000 UT) Vitamin D-3 25 MCG (1000 UT) 12:00:00 AM EST 1.0 {capsule} active Vitamin D- 3 25 MCG (1000 UT) eCW1 ([facility]) Vitamin D-3 25 MCG (1000 UT) Vitamin D-3 25 MCG (1000 UT) 12:00:00 AM EST 1.0 {capsule} active Vitamin D- 3 25 MCG (1000 UT) eCW1 ([facility]) Vitamin D-3 25 MCG (1000 UT) Vitamin D-3 25 MCG (1000 UT) 12:00:00 AM EST 1.0 {capsule} active Vitamin D- 3 25 MCG (1000 UT) eCW1 ([facility]) Vitamin D-3 25 MCG (1000 UT) Vitamin D-3 25 MCG (1000 UT) 12:00:00 AM EST 1.0 {capsule} active Vitamin D- 3 25 MCG (1000 UT) eCW1 ([facility]) Vitamin D-3 25 MCG (1000 UT) Vitamin D-3 25 MCG (1000 UT) 12:00:00 AM EST 1.0 {capsule} active Vitamin D- 3 25 MCG (1000 UT) eCW1 ([facility]) Vitamin D-3 25 MCG (1000 UT) Vitamin D-3 25 MCG (1000 UT) 12:00:00 AM EST 1.0 {capsule} active Vitamin D- 3 25 MCG (1000 UT) eCW ([facility]) Oyster Calcium + D 500-125 MG-UNIT UNK 12/29/2019 12:00:00 AM EST 1.0 {tablet} active Oyster Calcium + D 500-1 25 MG-UNIT W1 ([facility]) Diclofenac Sodium 0.01 MG/MG Topical Gel [Voltaren] Voltaren 1 % Voltaren 1 % 12/29/2019 12:00:00 AM EST active Voltaren 1 % eCW1 ([facility]) Diclofenac Sodium 0.01 MG/MG Topical Gel [Voltaren] Voltaren 1 % Voltaren 1 % 12/29/2019 12:00:00 AM EST active Voltaren 1 % eCW1 ([facility]) Oyster Calcium + D 500-125 MG-UNIT Oyster Calcium + D 500-12 5 MG-UNIT 12/29/2019 12:00:00 AM EST 1.0 {tablet} active Oyster Calcium + D 500-125 MG-UNIT eCW1 ([facility]) Diclofenac Sodium 0.01 MG/MG Topical Gel [Voltaren] Voltaren 1 % Voltaren 1 % 12/29/2019 12:00:00 AM EST active Voltaren 1 % eCW1 ([facility]) Oyster Calcium + D 500-125 MG-UNIT UNK 12/29/2019 12:00:00 AM EST 1.0 {tablet} active Oyster Calcium + D 500-1 25 MG-UNIT eCW1 ([facility]) Diclofenac Sodium 0.01 MG/MG Topical Gel [Voltaren] Voltaren 1 % Voltaren 1 % 12/29/2019 12:00:00 AM EST active Voltaren 1 % eCW1 ([facility]) Diclofenac Sodium 0.01 MG/MG Topical Gel [Voltaren] Voltaren 1 % Voltaren 1 % 12/29/2019 12:00:00 AM EST active Voltaren 1 % eCW1 ([facility]) Diclofenac Sodium 0.01 MG/MG Topical Gel [Voltaren] Voltaren 1 % Voltaren 1 % 12/29/2019 12:00:00 AM EST active Voltaren 1 % eCW1 ([facility]) Oyster Calcium + D 500-125 MG-UNIT Oyster Calcium + D 500-12 5 MG-UNIT 12/29/2019 12:00:00 AM EST 1.0 {tablet} active Oyster Calcium + D 500-125 MG-UNIT eCW1 ([facility]) Oyster Calcium + D 500-125 MG-UNIT Oyster Calcium + D 500-12 5 MG-UNIT 12/29/2019 12:00:00 AM EST 1.0 {tablet} active Oyster Calcium + D 500-125 MG-UNIT eCW1 ([facility]) Oyster Calcium + D 500-125 MG-UNIT UNK 12/29/2019 12:00:00 AM EST 1.0 {tablet} active Oyster Calcium + D 500-1 25 MG-UNIT eCW1 ([facility]) Diclofenac Sodium 0.01 MG/MG Topical Gel [Voltaren] Voltaren 1 % Voltaren 1 % 12/29/2019 12:00:00 AM EST active Voltaren 1 % eCW1 ([facility]) Diclofenac Sodium 0.01 MG/MG Topical Gel [Voltaren] Voltaren 1 % Voltaren 1 % 12/29/2019 12:00:00 AM EST active Voltaren 1 % eCW1 ([facility]) Oyster Calcium + D 500-125 MG-UNIT Oyster Calcium + D 500-12 5 MG-UNIT 12/29/2019 12:00:00 AM EST 1.0 {tablet} active Oyster Calcium + D 500-125 MG-UNIT eCW1 ([facility]) Oyster Calcium + D 500-125 MG-UNIT UNK 12/29/2019 12:00:00 AM EST 1.0 {tablet} active Oyster Calcium + D 500-1 25 MG-UNIT eCW1 ([facility]) Insurance Providers Payer name Policy type / Coverage type Policy ID Covered democrat ID Covered democrat's relationship to sloan Policy [place] Plan Information MEDICARE [id number] [facility] [id number] A Medicare - [facility] ([place]) Medicare Primary [id number] Self 3 [id number] Medicare (Part B) Medicare Primary [id number] Self 3 [id number] MEDICARE [id number] SP [id number] T Medicare (Part B) Medicare Primary [id number] Self [id number] Medicare (Part B) Medicare Primary [id number] Self [id number] Medicare (Part B) Medicare Primary [id number] Self 4 [id number] MEDICARE [id number] SP [id number] A Medicare - [place] Medicare Primary [id number] Self [id number] Medicare [place] Medicare Primary [id number] Self [id number] [facility] Part B [id number] Family Dependent [id number] Medicare [place] Medicare Primary [id number] Self [id number] [facility] [id number] Family Dependent [id number] [facility] [id number] Family Dependent [id number] [facility] [id number] Family Dependent [id number] Medicare [place] Medicare Primary [id number] Self [id number] ANS-Medicare Part B [id number] ANSI-Commercial [id number] ANSI-Medicare Part B [id number] ANSI-Commercial [id number] ANSI-Commercial [id number] ANSI-Medicare Part B [id number] ANSI-Commercial [id number] ANSI-Medicare Part B [id number] ANSI-Commercial [id number] ANSI-Medicare Part B [id number] ANSI-Medicare Part B [id number] ANSI-Commercial [id number] [facility] For Life - [facility] Part B [id number] Family Dependent [id number] ANSI-Commercial [id number] ANSI-Medicare Part B [id number] ANSI-Commercial [id number] ANS-Medicare Part B [id number] For Life Reg 1 [facility] Part B [id number] 4 [id number] [place] [facility] (TFL) [facility] Part B [id number] Family Dependent [id number] Medicare Upstate Medicare Primary [id number] Self [id number] MEDICARE [id number] T ANSI-Commercial [id number] ANSI-Medicare Part B [id number] [place] [facility] (TFL) [facility] Part B [id number] Family Dependent [id number] Medicare Upstate Medicare Primary [id number] Self [id number] [place] [facility] ([facility]) [facility] Part B [id number] Family Dependent [id number] Medicare [place] Medicare Primary [id number] Self [id number] FOR LIFE [id number] HU2 [id number] [place] [id number] HU2 [id number] [place] [id number] HU [id number] [facility] [id number] HU [id number] [facility] BENEFIT PLAN [id number] SP [id number] Spo [id number] PI PI MEDICARE PI PI [place] [facility] (TFL) [facility] [id number] Family Dependent [id number] Medicare [place] Medicare Primary [id number] Self [id number] For Life - WPS [facility] Part B [id number] Family Dependent [id number] [facility] Life [facility] [id number] 4 [id number] MEDICARE P [id number] S [id number] T [id number] T MEDICARE [id number] SP [id number] FOR LIFE [id number] HU2 [id number] MEDICARE C [id number] S [id number] FOR LIFE O [id number] S [id number] ANSI-Commercial [id number] ANSI-Medicare Part B [id number] ANSI-Commercial [id number] ANSI-Medicare Part B [id number] ANSI-Commercial [id number] ANSI-Medicare Part B [id number] For Life [facility] Part B [id number] Family Dependent [id number] Problems, Conditions, and Diagnoses Code Display Name Description Problem Type Effective Dates Data Source(s) G47.33 Obstructive sleep apnea syndrome Obstructive sle ep apnea syndrome Problem 08/17/2020 12:00:00 AM EDT [facility] ([facility]) I35.1 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 Nonrheumatic aortic valve insufficiency P roblem 06/30/2020 12:00:00 AM EDT eCW1 ([facility]) E83.52 [id number] Hypercalcemia Problem 06/30/2020 12:00:00 AM EDT eCW1 ([facility]) G47.33 [id number] COLT (obstructive sleep apnea) Problem 12/29/2019 12:00:00 AM EST eCW ([facility]) Surgeries/Procedures Procedure Description Date Indications Data Source(s) THERAPEUTIC PROPHYLACTIC/DX INJECTION SUBQ/IM 01/10/20 21 12:00:00 AM EST [facility] ([facility] ) OFFICE OUTPATIENT VISIT 10 MINUTES 01/09/2021 12:00:00 AM EST [facility] ([facility] ) OFFICE OUTPATIENT VISIT 15 MINUTES 12/21/2020 12:00:00 AM EDT [facility] ([facility] ) ARTHROCENTESIS ASPIR&/INJECTION MAJOR JT/BURSA 021 12:00:00 AM [facility] X-Ray Spine Lumbosacral Complete Inc Bending Views Min Of 6 11/18/2020 12:00:00 AM EDT [facility] ([facility] ) X-Ray Hips Bilateral With Pelvis Minimum 5 Views 11/18 12:00:00 AM EDT [facility] ([facility] ) OFFICE OUTPATIENT VISIT 25 MINUTES 11/18/2020 12:00:00 AM EDT [facility] ([facility]) ECHO TTHRC R-T 2D W/WOM-MODE COMPL SPEC&COLR DOP 11/07 12:00:00 AM EDT [facility] ([facility]) OFFICE OUTPATIENT VISIT 15 MINUTES 09/08/2020 12:00:00 AM EDT [facility] ([facility] ) OFFICE OUTPATIENT VISIT 25 MINUTES 09/08/2020 12:00:00 AM EDT [facility] ([facility] ) ECG ROUTINE ECG W/LEAST 12 LDS W/I&R 08/17/2020 12:00: 00 AM EDT [facility] ([facility]) OFFICE OUTPATIENT VISIT 25 MINUTES 08/17/2020 12:00:00 AM EDT [facility] ([facility]) THERAPEUTIC PROPHYLACTIC/DX INJECTION SUBQ/IM 07/08/19 21 12:00:00 AM EDT MED[facility] ([facility] ) OFFICE OUTPATIENT VISIT 25 MINUTES 07/07/2020 12:00:00 AM EDT MED[facility] ([facility]) DESTRUCTION PREMALIGNANT LESION 1ST 07/06/2020 12:00:0 0 AM EDT [facility] ([facility]) DESTRUCTION PREMALIGNANT LESION 2-14 EA 07/06/2020 12: 00:00 AM EDT MED[facility] ([facility]) OFFICE OUTPATIENT VISIT 25 MINUTES 07/06/2020 12:00:00 AM EDT [facility] ([facility]) Results ID Date Data Source [id number] 09/05/2020 10:11:00 AM EDT [facility] ([facility]) Name Value Range Interpretation Code Description Data Caro rce(s) Supporting Document(s) Glucose, Fasting 103 mg/dL 70-100 [facility] ([facility]) Blood Urea Nitrogen 13 mg/dL 7-18 [facility] ([facility]) Glomerular Filtration Rate Laboratory test result [facility] ([facility]) <content>Units are mL/min/1.73 m2</content>
<content></content>
<content>Chronic Kidney Disease Staging per NKF:</content>
<content></content>
<content>Stage I & II GFR >=60 Normal to Mildly Decreased</content>
<content>Stage III GFR 30- 59 Moderately Decreased</content>
<content>Stage IV GFR 15-29 Severely Decreased</content>
<content>Stage V GFR <15 Very Little GFR Left</content>
<content>ESRD GFR <15 on AGRICULTURIST</content>
<content></content> Creatinine For GFR 0.73 mg/dL 0.55-1.30 [facility] ([facility]) Sodium Level 141 meq/L 136-145 [facility] ([facility]) Potassium Serum 4.2 meq/L 3.5-5.1 [facility] ([facility]) Chloride Level 107 meq/L 98-107 [facility] ([facility]) Carbon Dioxide Level 31 meq/L 21-32 [facility] ([facility]) Anion Gap 3 meq/L 8-16 [facility] ([facility]) Calcium Level 9.4 mg/dL 8.8-10.2 [facility] ([facility]) ID Date Data Source [id number] 09/05/2020 10:11:00 AM EDT [facility] ([facility]) Name Value Range Interpretation Code Description Data Caro rce(s) Supporting Document(s) Parathyrin.intact [Mass/volume] in Serum or Plasma 34.6 pg/mL 18.5-88 .0 [facility] ([facility]) ID Date Data Source [id number] 09/05/2020 10:11:00 AM EDT [facility] ([facility]) Name Value Range Interpretation Code Description Data Caro rce(s) Supporting Document(s) Calcium [Moles/volume] in Serum or Plasma Laboratory test result [facility] ([facility]) Parathyrin.intact [Mass/volume] in Serum or Plasma 34.6 pg/mL 18.5-88 .0 [facility] ([facility]) ID Date Data Source [id number] 06/30/2020 02:33:00 PM EDT [facility] ([facility]) Name Value Range Interpretation Code Description Data Caro rce(s) Supporting Document(s) Calcium [Mass/volume] in Serum or Plasma 10.0 [facility] ([facility]) Sodium 140 [facility] Carbon dioxide, total [Moles/volume] in Serum or Plasma 25 [facility] ([facility]) Chloride [Moles/volume] in Serum or Plasma 109 [facility] ([facility]) Potassium [Moles/volume] in Serum or Plasma 4.3 [facility] ([facility]) Glucose 110 70-100 [facility] ([facility] Blood Urea Nitrogen 19 7-18 [facility] ([facility]) Creatinine 0.66 0.55-1.30 [facility] ([facility]) Glomerular filtration rate/1.73 sq M.pre dicted [Volume Rate/Area] in Serum or Plasma by Creatinine-based formula (MDRD) Laboratory test result [facility] ([facility]) ID Date Data Source VITAMIN D [id number] 06/30/2020 12:00:00 AM EDT eCW1 ([facility]) Name Value Range Interpretation Code Description Data Caro rce(s) Supporting Document(s) 37.3 30.0-100.0 TOTAL 25(OH) VITAMIN D eC W1 ([facility]) ID Date Data Source PTH INTACT 06/30/2020 12:00:00 AM EDT eCW1 ([facility]) Name Value Range Interpretation Code Description Data Caro rce(s) Supporting Document(s) 29.3 18.5-88.0 PTH INTACT eCW1 ([facility]) ID Date Data Source Basic Metabolic Profile (BMP) 06/30/2020 12:00:00 AM EDT eCW 1 ([facility]) Name Value Range Interpretation Code Description Data Caro rce(s) Supporting Document(s) 110 70-100 GLUCOSE, FASTING eCW1 ([facility]) 19 7-18 BLOOD UREA NITROGEN eCW1 ([facility]) 0.66 0.55-1.30 CREATININE FOR GFR eCW1 ([facility]) 140 136-145 SODIUM LEVEL eCW1 ([facility]) 4.3 3.5-5.1 POTASSIUM SERUM eCW1 ([facility]) > 60.0 >32 GLOMERULAR FILTRATION RATE eCW 1 ([facility]) 109 98-107 CHLORIDE LEVEL eCW1 ([facility]) 25 21-32 CARBON DIOXIDE LEVEL eCW1 ([facility]) 10.1 8.8-10.2 CALCIUM LEVEL eCW1 ([facility]) ID Date Data Source [id number] 06/30/2020 12:00:00 AM EDT eCW1 ([facility]) Name Value Range Interpretation Code Description Data Caro rce(s) Supporting Document(s) Hemoglobin A1c/Hemoglobin.total in Blood 6.3 HEMOGLOBIN A1c eCW1 ([facility]) ID Date Data Source [id number] 06/27/2020 10:30:00 AM EDT [facility] ([facility]) Name Value Range Interpretation Code Description Data Caro rce(s) Supporting Document(s) Calcium [Moles/volume] in Serum or Plasma 11.1 mg/dL 8.8-10.2 [facility] ([facility]) Calcidiol [Mass/volume] in Serum or Plasma 27.3 ng/mL 30.0-100.0 [facility] ([facility]) Procedure Social History Code Duration Value Status Description Data Source(s ) Smoking 01/03/2021 12:00:00 AM EST Never Smoker completed Never S moker eCW1 ([facility]) Smoking 12/21/2020 12:00:00 AM EDT Patient is a former smoker completed Patient is a former smoker [facility] ([facility] ) Smoking 12/12/2020 12:00:00 AM EDT Never Smoker completed Never S moker eCW1 ([facility]) Smoking 09/08/2020 12:00:00 AM EDT Patient has never smoked co mpleted Patient has never smoked [facility] ([facility]) Smoking 08/17/2020 12:00:00 AM EDT Patient has never smoked co mpleted Patient has never smoked [facility] ([facility]) Smoking 06/30/2020 12:00:00 AM EDT Never Smoker completed Never S moker eCW1 ([facility]) Smoking 06/30/2020 12:00:00 AM EDT Never Smoker completed Never S moker eCW1 ([facility]) Smoking 06/30/2020 12:00:00 AM EDT Never Smoker completed Never S moker eCW1 ([facility]) Smoking 06/30/2020 12:00:00 AM EDT Never Smoker completed Never S moker eCW1 ([facility]) Smoking 12/29/2019 12:00:00 AM EST Never Smoker completed Never S moker eCW1 ([facility]) Smoking 12/29/2019 12:00:00 AM EST Never Smoker completed Never S moker eCW1 ([facility]) Vital Signs ID Date Data Source UNK Name Value Range Interpretation Code Description Data Source(s) Diastolic blood pressure 70 mm[Hg] 70 mm[Hg] eCW1 ([facility]) Systolic blood pressure 110 mm[Hg] 110 mm[Hg] e CW1 ([facility]) Body weight 114.6 [lb_av] 114.6 [lb_av] eCW1 ([facility]) Body height 56 [in_i] 56 [in_i] eCW1 ([facility]) Body mass index (BMI) [Ratio] 25.69 kg/m2 25.69 kg/m2 eCW1 ([facility]) Heart rate 87 /min 87 /min eCW1 ([facility]) Respiratory rate 18 /min 18 /min eCW1 ([facility]) Body temperature 96.1 [degF] 96.1 [degF] eCW1 ( [facility]) Systolic blood pressure 100 mm[Hg] 100 mm[Hg] M EDENT ([facility] ) Diastolic blood pressure 68 mm[Hg] 68 mm[Hg] MED[facility] ([facility]) Heart rate 67 /min 67 /min [facility] Oxygen saturation in Arterial blood by Pulse oximetry 98 % 98 % [facility] Respiratory rate 18 /min 18 /min MED[facility] ( [facility], ) Body height 57 [in_i] 57 [in_i] MEDENT ([facility], ) 4'9" Body weight 111.50 [lb_av] 111.50 [lb_av] MEDEN T ([facility], ) Body mass index (BMI) [Ratio] 24.1 kg/m2 24.1 k g/m2 [facility] ([facility], ) [place] body weight 100 [lb_av] 100 [lb_av] MEDEN T ([facility], ) Body weight 50.576 kg 50.576 kg [facility] ([facility]) Body surface area Derived from formula 1.40 m2 1.40 m2 [facility] ([facility], ) Body temperature 96.6 [degF] 96.6 [degF] MED[facility] ([facility]) Body height 55 [in_i] 55 [in_i] MED[facility] ([facility] ) 4'7" Body weight 112.25 [lb_av] 112.25 [lb_av] MEDEN T ([facility]) Body mass index (BMI) [Ratio] 26.1 kg/m2 26.1 k g/m2 [facility] ([facility] ) Diastolic blood pressure 70 mm[Hg] 70 mm[Hg] [facility] ([facility] ) Heart rate 79 /min 79 /min [facility] ([facility] ) Systolic blood pressure 120 mm[Hg] 120 mm[Hg] M EDENT ([facility] ) Body height 55.6 [in_i] 55.6 [in_i] MED[facility] ([facility] ) 4'7.60" Body weight 116.38 [lb_av] 116.38 [lb_av] MEDEN T ([facility] ) Body mass index (BMI) [Ratio] 26.5 kg/m2 26.5 k g/m2 [facility] ([facility] ) Oxygen saturation in Arterial blood by Pulse oximetry 96 % 96 % [facility] ([facility] ) Body weight 115.00 [lb_av] 115.00 [lb_av] MEDEN T ([facility]) Body mass index (BMI) [Ratio] 24.9 kg/m2 24.9 k g/m2 [facility] ([facility]) Diastolic blood pressure--sitting 78 mm[Hg] 78 mm[Hg] [facility] ([facility]) Ra, medium cuff Body height 57 [in_i] 57 [in_i] [facility] 4'9" Heart rate 54 /min 54 /min [facility] ([facility]) Systolic blood pressure--sitting 122 mm[Hg] 122 mm[Hg] [facility] ([facility]) Ra, medium cuff Heart rate 85 /min 85 /min [facility] ([facility] ) Systolic blood pressure 122 mm[Hg] 122 mm[Hg] M EDENT ([facility] ) Diastolic blood pressure 78 mm[Hg] 78 mm[Hg] [facility] ([facility] ) Body temperature 97.1 [degF] 97.1 [degF] [facility] ([facility] ) Body height 55.6 [in_i] 55.6 [in_i] [facility] ([facility] ) 4'7.60" Body weight 119.25 [lb_av] 119.25 [lb_av] MEDEN T ([facility]) Body mass index (BMI) [Ratio] 27.1 kg/m2 27.1 k g/m2 [facility] ([facility] ) Oxygen saturation in Arterial blood by Pulse oximetry 92 % 92 % [facility] ([facility]) Systolic blood pressure 116 mm[Hg] 116 mm[Hg] M EDENT ([facility]) Diastolic blood pressure 64 mm[Hg] 64 mm[Hg] [facility] ([facility]) Body weight 115.00 [lb_av] 115.00 [lb_av] MEDEN T ([facility]) Body temperature 96.2 [degF] 96.2 [degF] [facility] ([facility]) Body weight 120 [lb_av] 120 [lb_av] eCW1 ([facility]) Body height 56 [in_i] 56 [in_i] eCW1 ([facility]) Body mass index (BMI) [Ratio] 26.90 kg/m2 26.90 kg/m2 eCW1 ([facility]) Heart rate 74 /min 74 /min eCW1 ([facility]) Respiratory rate 18 /min 18 /min eCW1 ([facility]) Body temperature 96.4 [degF] 96.4 [degF] eCW1 ( [facility]) Systolic blood pressure 120 mm[Hg] 120 mm[Hg] e CW1 ([facility]) Diastolic blood pressure 70 mm[Hg] 70 mm[Hg] eCW1 ([facility]) Body weight 115 [lb_av] 115 [lb_av] eCW1 ([facility]) Body height 56 [in_i] 56 [in_i] eCW1 ([facility]) Body mass index (BMI) [Ratio] 25.78 kg/m2 25.78 kg/m2 eCW1 ([facility]) Heart rate 98 /min 98 /min eCW1 ([facility]) Respiratory rate 18 /min 18 /min eCW1 ([facility]) Body temperature 96 [degF] 96 [degF] eCW1 ([facility]) Systolic blood pressure 120 mm[Hg] 120 mm[Hg] e CW1 ([facility]) Diastolic blood pressure 66 mm[Hg] 66 mm[Hg] eCW1 ([facility]) Patient Treatment Plan of Care Planned Activity Planned Date Details Description Data Source (s) Vitamin D-3 25 MCG (1000 UT) 03/07/2020 12:00:00 AM EST eCW1 ([facility]) Vitamin D-3 25 MCG (1000 UT) 03/07/2020 12:00:00 AM EST eCW1 ([facility]) Oyster Calcium + D 500-125 MG-UNIT 12/29/2019 12:00:00 AM EST eCW1 ([facility]) Diclofenac Sodium 0.01 MG/MG Topical Gel [Voltaren] 12/29/19 12:00:00 AM EST eCW1 ([facility]) Diclofenac Sodium 0.01 MG/MG Topical Gel [Voltaren] 12/29/19 12:00:00 AM EST eCW1 ([facility]) Oyster Calcium + D 500-125 MG-UNIT 12/29/2019 12:00:00 AM EST eCW1 ([facility]) Diclofenac Sodium 0.01 MG/MG Topical Gel [Voltaren] 12/29/19 12:00:00 AM EST eCW1 ([facility]) Diclofenac Sodium 0.01 MG/MG Topical Gel [Voltaren] 12/29/19 12:00:00 AM EST eCW1 ([facility]) Diclofenac Sodium 0.01 MG/MG Topical Gel [Voltaren] 12/29/19 12:00:00 AM EST eCW1 ([facility]) Diclofenac Sodium 0.01 MG/MG Topical Gel [Voltaren] 12/29/19 12:00:00 AM EST eCW1 ([facility]) Oyster Calcium + D 500-125 MG-UNIT 12/29/2019 12:00:00 AM EST eCW1 ([facility]) Diclofenac Sodium 0.01 MG/MG Topical Gel [Voltaren] 12/29/19 12:00:00 AM EST eCW1 ([facility]) Oyster Calcium + D 500-125 MG-UNIT 12/29/2019 12:00:00 AM EST eCW1 ([facility]) Diclofenac Sodium 0.01 MG/MG Topical Gel [Voltaren] 12/29/19 12:00:00 AM EST eCW1 ([facility])
== END 2021-01-28 12:06 | disposition home or self-care (01) ==
LOC: M ED 10:34
DX: L30.1 Dyshidrosis [pompholyx] (principal); G47.33 Obstructive sleep apnea (adult) (pediatric); K21.9 Gastro-esophageal reflux disease without esophagitis; Z88.6 Allergy status to analgesic agent; Z79.899 Other long term (current) drug therapy

== ENCOUNTER 2021-04-10 11:16 | Emergency (ER) | payer MEDICARE, OTHER ==
[~2021-04-10] VITALS: Ht 144.8 cm; Wt 53.2 kg
[~2021-04-10 11:16] MED LIST changes: +BACI500O21 TOP; +CEPH500C PO
[2021-04-10 12:45] VITALS: BP 142/71
[2021-04-10] MEDS ORDERED: ACETAMINOPHEN 325 MG TAB PO ONE (12:55)
[2021-04-10 13:00] VITALS: O2SAT 98
== END 2021-04-10 13:26 | disposition home or self-care (01) ==
LOC: EDBD 11:16 → M ED 11:16
DX: S00.93XA Contusion of unspecified part of head, initial encounter (principal); S13.8XXA Sprain of joints and ligaments of other parts of neck, initial encounter; K21.9 Gastro-esophageal reflux disease without esophagitis; Z87.19 Personal history of other diseases of the digestive system; W00.9XXA Unspecified fall due to ice and snow, initial encounter; W22.8XXA Striking against or struck by other objects, initial encounter; Y92.009 Unspecified place in unspecified non-institutional (private) residence as the place of occurrence of the external cause; Y93.9 Activity, unspecified; Y99.9 Unspecified external cause status

== ENCOUNTER 2021-05-10 11:06 | Emergency (ER) | payer MEDICARE, OTHER ==
[~2021-05-10] VITALS: Ht 144.8 cm; Wt 52.3 kg
[2021-05-10 12:52] LABS: BASO % 0.3 % (0.0-1.0); EOS % 0.5 % (0.0-3.0); HEMATOCRIT 37.8 % (36.0-47.0); HEMOGLOBIN 12.3 g/dl (12.0-15.5); LYMPH # 1.4 10^3/uL (1.5-5.0); LYMPH % 22.7 % (24.0-44.0); MEAN CORPUSCULAR HEMOGLOBIN 29.1 pg (27.0-33.0); MEAN CORPUSCULAR HGB CONC 32.5 g/dl (32.0-36.5); MEAN CORPUSCULAR VOLUME 89.6 fl (80.0-96.0); MONO # 0.5 10^3/uL (0.0-0.8); MONO % 7.6 % (2.0-8.0); NEUTROPHILS # 4.1 10^3/uL (1.5-8.5); NEUTROPHILS % 68.6 % (36.0-66.0); PLATELET COUNT, AUTOMATED 263 10^3/uL (150-450); RED BLOOD COUNT 4.22 10^6/uL (4.00-5.40)
[2021-05-10] MEDS ORDERED: NS 500 ML IV ONE (13:45)
[2021-05-10 14:20] LABS: ALBUMIN 4.1 GM/DL (3.2-5.2); ALT/SGPT 32 U/L (12-78); BILIRUBIN,TOTAL 0.3 MG/DL (0.2-1.0); BLOOD UREA NITROGEN 15 MG/DL (7-18); CALCIUM LEVEL 9.6 MG/DL (8.8-10.2); CARBON DIOXIDE LEVEL 27 MEQ/L (21-32); CHLORIDE LEVEL 110 MEQ/L (98-107); CREATININE FOR GFR 0.66 MG/DL (0.55-1.30); GLOMERULAR FILTRATION RATE > 60.0 (>32); GLUCOSE, FASTING 111 MG/DL (70-100); POTASSIUM SERUM 4.1 MEQ/L (3.5-5.1); SODIUM LEVEL 143 MEQ/L (136-145); TOTAL PROTEIN 6.9 GM/DL (6.4-8.2)
[2021-05-10 20:25] VITALS: BP 132/78
== END 2021-05-10 20:31 | disposition home or self-care (01) ==
LOC: M ED 11:06
DX: R42 Dizziness and giddiness (principal); K21.9 Gastro-esophageal reflux disease without esophagitis; R94.31 Abnormal electrocardiogram [ECG] [EKG]; G47.30 Sleep apnea, unspecified; K80.20 Calculus of gallbladder without cholecystitis without obstruction; Z79.899 Other long term (current) drug therapy

== ENCOUNTER → 2021-07-06 | Outpatient (CLI) | payer MEDICARE, OTHER ==
[2021-07-06 11:49] LABS: HEMOGLOBIN A1c 6.3 %
[2021-07-06 12:02] LABS: ALBUMIN 4.3 GM/DL (3.2-5.2); ALT/SGPT 39 U/L (12-78); BILIRUBIN,TOTAL 0.6 MG/DL (0.2-1.0); BLOOD UREA NITROGEN 20 MG/DL (7-18); CALCIUM LEVEL 10.1 MG/DL (8.8-10.2); CARBON DIOXIDE LEVEL 27 MEQ/L (21-32); CHLORIDE LEVEL 111 MEQ/L (98-107); CHOLESTEROL LEVEL 174 MG/DL (<200); CHOLESTEROL RISK RATIO 3.052 (<5); CREATININE FOR GFR 0.75 MG/DL (0.55-1.30); GLOMERULAR FILTRATION RATE > 60.0 (>32); GLUCOSE, FASTING 122 MG/DL (70-100); HDL CHOLESTEROL 57 MG/DL (>40); LDL CHOLESTEROL 75 MG/DL (<100); NON-HDL-C 117 MG/DL; POTASSIUM SERUM 5.1 MEQ/L (3.5-5.1); SODIUM LEVEL 143 MEQ/L (136-145); TOTAL PROTEIN 7.6 GM/DL (6.4-8.2); TRIGLYCERIDES LEVEL 212 MG/DL (<150)
== END ==
LOC: M LAB 10:14
PROVIDERS: ATTEND Family Medicine
DX: R73.01 Impaired fasting glucose (principal); E78.2 Mixed hyperlipidemia

== ENCOUNTER → 2021-07-18 | Outpatient (CLI) | payer MEDICARE, OTHER ==
[2021-07-18 10:58] LABS: CALCIUM LEVEL 10.3 MG/DL (8.8-10.2)
[2021-07-18 11:14] LABS: TOTAL 25(OH) VITAMIN D 35.3 NG/ML (30.0-100.0)
== END ==
LOC: M LAB 09:43
PROVIDERS: ATTEND Internal Medicine Endocrinology, Diabetes & Metabolism
DX: E55.9 Vitamin D deficiency, unspecified (principal)

== ENCOUNTER → 2021-12-19 | Outpatient (CLI) | payer MEDICARE, OTHER | LOC: M WHC 09:46 | PROVIDERS: ATTEND Physician Assistant | DX: Z12.31 Encounter for screening mammogram for malignant neoplasm of breast (principal); M85.89 Other specified disorders of bone density and structure, multiple sites ==

== ENCOUNTER → 2022-01-22 | Outpatient (CLI) | payer MEDICARE, OTHER ==
[2022-01-22 14:14] LABS: BASO % 0.3 % (0.0-1.0); EOS # 0.1 10^3/uL (0.0-0.5); EOS % 1.3 % (0.0-3.0); HEMATOCRIT 40.8 % (36.0-47.0); LYMPH # 2.1 10^3/uL (1.5-5.0); LYMPH % 34.3 % (24.0-44.0); MEAN CORPUSCULAR HEMOGLOBIN 29.3 pg (27.0-33.0); MEAN CORPUSCULAR HGB CONC 31.9 g/dl (32.0-36.5); MEAN CORPUSCULAR VOLUME 92.1 fl (80.0-96.0); MONO # 0.5 10^3/uL (0.0-0.8); MONO % 7.5 % (2.0-8.0); NEUTROPHILS # 3.4 10^3/uL (1.5-8.5); NEUTROPHILS % 56.4 % (36.0-66.0); PLATELET COUNT, AUTOMATED 279 10^3/uL (150-450); RED BLOOD COUNT 4.43 10^6/uL (4.00-5.40)
[2022-01-22 14:56] LABS: CHLORIDE LEVEL 105 MMOL/L (98-107); POTASSIUM SERUM 4.6 MMOL/L (3.5-5.1); SODIUM LEVEL 142 MMOL/L (136-145)
[2022-01-22 14:57] LABS: CARBON DIOXIDE LEVEL 27 MMOL/L (20-31)
[2022-01-22 14:58] LABS: ALBUMIN 4.3 G/DL (3.2-5.2)
[2022-01-22 15:02] LABS: BLOOD UREA NITROGEN 16 MG/DL (9-23); TRIGLYCERIDES LEVEL 203 MG/DL (<150)
[2022-01-22 15:03] LABS: CALCIUM LEVEL 9.5 MG/DL (8.3-10.6); GLUCOSE, FASTING 116 MG/DL (74-106)
[2022-01-22 15:04] LABS: BILIRUBIN,TOTAL 0.5 MG/DL (0.3-1.2); THYROID STIMULATING HORMONE 2.318 uIU/ML (0.55-4.78); TOTAL PROTEIN 7.3 G/DL (5.7-8.2)
[2022-01-22 15:05] LABS: ALT/SGPT 35 U/L (7.0-40); CHOLESTEROL LEVEL 152 MG/DL (<200); CHOLESTEROL RISK RATIO 2.57 (<5); CREATININE FOR GFR 0.75 MG/DL (0.55-1.30); GLOMERULAR FILTRATION RATE > 60.0 (>32); LDL CHOLESTEROL 52.4 MG/DL (<100); NON-HDL-C 93 MG/DL; TOTAL 25(OH) VITAMIN D 37.5 NG/ML (20.0-100.0)
[2022-01-22 19:52] LABS: HEMOGLOBIN A1c 5.9 % (4.0-6.0)
== END ==
LOC: M PLALAB 09:59
PROVIDERS: ATTEND Physician Assistant
DX: E78.2 Mixed hyperlipidemia (principal); Z79.899 Other long term (current) drug therapy

== ENCOUNTER 2022-03-22 03:02 | Inpatient (IN) | payer MEDICARE, OTHER ==
[~2022-03-22] VITALS: Ht 144.8 cm; Wt 55.6 kg
[2022-03-22] MEDS ORDERED: NS 1,000 ML IV ONE ×2 (03:20→04:00)
[2022-03-22] MEDS ORDERED: ONDANSETRON 4MG 2ML VIAL IV ONE (03:25)
[2022-03-22] MEDS ORDERED: METOCLOPRAMIDE INJ 10MG/2ML VIAL IV ONE (03:30)
[2022-03-22] MEDS ORDERED: MECLIZINE 25 MG TABLET PO ONE (03:35)
[2022-03-22 03:40] LABS: BASO % 0.4 % (0.0-1.0); EOS # 0.1 10^3/uL (0.0-0.5); EOS % 0.6 % (0.0-3.0); HEMATOCRIT 38.5 % (36.0-47.0); HEMOGLOBIN 12.9 g/dl (12.0-15.5); LYMPH # 4.5 10^3/uL (1.5-5.0); LYMPH % 44.9 % (24.0-44.0); MEAN CORPUSCULAR HEMOGLOBIN 29.5 pg (27.0-33.0); MEAN CORPUSCULAR HGB CONC 33.5 g/dl (32.0-36.5); MEAN CORPUSCULAR VOLUME 88.1 fl (80.0-96.0); MONO # 0.7 10^3/uL (0.0-0.8); MONO % 7.2 % (2.0-8.0); NEUTROPHILS # 4.7 10^3/uL (1.5-8.5); NEUTROPHILS % 46.6 % (36.0-66.0); PLATELET COUNT, AUTOMATED 281 10^3/uL (150-450); RED BLOOD COUNT 4.37 10^6/uL (4.00-5.40); WHITE BLOOD COUNT 10.1 10^3/uL (4.0-10.0)
[2022-03-22 03:51] LABS: INR 0.88; PROTHROMBIN TIME 12.2 SECONDS (12.5-14.5)
[2022-03-22 03:52] LABS: PARTIAL THROMBOPLASTIN TIME 28.3 SECONDS (24.8-34.2)
[2022-03-22 04:02] LABS: MAGNESIUM LEVEL 2.3 MG/DL (1.8-2.4)
[2022-03-22 04:04] LABS: ALBUMIN 4.3 G/DL (3.2-5.2); ALKALINE PHOSPHATASE 64 U/L (46-116); ALT/SGPT 35 U/L (7.0-40); AST/SGOT 24 U/L (<34); BILIRUBIN,TOTAL 0.8 MG/DL (0.3-1.2); BLOOD UREA NITROGEN 16 MG/DL (9-23); CALCIUM LEVEL 9.7 MG/DL (8.3-10.6); CARBON DIOXIDE LEVEL 21 MMOL/L (20-31); CHLORIDE LEVEL 104 MMOL/L (98-107); CK-MB VALUE MASS < 1.0 NG/ML (<3.6); CPK CREATINE PHOSPHOKINASE 93 U/L (34-145); CREATININE FOR GFR 0.82 MG/DL (0.55-1.30); GLOMERULAR FILTRATION RATE > 60.0 (>32); GLUCOSE, FASTING 201 MG/DL (74-106); MB/CK RELATIVE INDEX 1.07 (< OR =4); POTASSIUM SERUM 3.8 MMOL/L (3.5-5.1); SODIUM LEVEL 139 MMOL/L (136-145); TOTAL PROTEIN 7.3 G/DL (5.7-8.2)
[2022-03-22 04:06] LABS: THYROID STIMULATING HORMONE 4.553 uIU/ML (0.55-4.78)
[2022-03-22 04:07] LABS: FREE T4 1.45 NG/DL (0.89-1.76)
[2022-03-22 04:16] LABS: D-DIMER QUANT < 270 ng/ml (<500)
[2022-03-22] MEDS ORDERED: ISOVUE-370 76% 100ML VIAL As Ordered ONE ×2 (05:16→06:02)
[2022-03-22] MEDS ORDERED: CLOPIDOGREL 75 MG TAB PO ONE (06:55)
[2022-03-22] MEDS ORDERED: ASPIRIN 81MG CHEW TABLET PO ONE (07:50)
[2022-03-22] MEDS ORDERED: ATOR40TA75 PO (08:00)
[2022-03-22] MEDS ORDERED: OYST500T12 PO (08:00)
[2022-03-22] MEDS ORDERED: ATORVASTATIN 20 MG TAB PO ONE ×2 (08:00→10:20)
[2022-03-22] MEDS ORDERED: VITA100093 PO (08:00)
[2022-03-22] MEDS ORDERED: HOME MED LIST COMPLETE! XX SCH (08:05)
[2022-03-22] MEDS: MULTIVITAMINS/MINERALS THERAP 1 TAB PO SCH (09:38)
[2022-03-22] MEDS: FERROUS SULFATE 325MG TAB PO SCH (09:38)
[2022-03-22] MEDS: ENOXAPARIN 40MG/0.4ML SYRINGE (J1650 PER 10MG) SC SCH (09:38)
[2022-03-22 12:39] LABS: CHOLESTEROL LEVEL 148 MG/DL (<200); CHOLESTEROL RISK RATIO 2.44 (<5); HDL CHOLESTEROL 60.6 MG/DL (>40); LDL CHOLESTEROL 59.8 MG/DL (<100); NON-HDL-C 87 MG/DL; TRIGLYCERIDES LEVEL 138 MG/DL (<150)
[2022-03-22 12:40] LABS: HEMOGLOBIN A1c 5.9 % (4.0-6.0)
[2022-03-22 12:50] VITALS: BP 139/65
[2022-03-22 13:00] VITALS: BP 136/63
[2022-03-22 16:00] VITALS: BP_SYST 127; BP_SYST 128; BP_DIAS 58; BP_DIAS 63
[2022-03-22 20:00] VITALS: BP 129/70
[2022-03-22] MEDS ORDERED: ATORVASTATIN 20 MG TAB PO SCH (21:00)
[2022-03-22 23:35] VITALS: BP 116/57
[2022-03-23 03:49] VITALS: BP 115/69
[2022-03-23 05:27] LABS: HEMATOCRIT 34.8 % (36.0-47.0); MEAN CORPUSCULAR HEMOGLOBIN 29.4 pg (27.0-33.0); MEAN CORPUSCULAR HGB CONC 31.6 g/dl (32.0-36.5); PLATELET COUNT, AUTOMATED 233 10^3/uL (150-450); RED BLOOD COUNT 3.74 10^6/uL (4.00-5.40)
[2022-03-23 05:42] LABS: MAGNESIUM LEVEL 2.2 MG/DL (1.8-2.4)
[2022-03-23 05:43] LABS: BLOOD UREA NITROGEN 10 MG/DL (9-23); CARBON DIOXIDE LEVEL 25 MMOL/L (20-31); CHLORIDE LEVEL 112 MMOL/L (98-107); CREATININE FOR GFR 0.74 MG/DL (0.55-1.30); GLOMERULAR FILTRATION RATE > 60.0 (>32); GLUCOSE, FASTING 103 MG/DL (74-106); POTASSIUM SERUM 4.2 MMOL/L (3.5-5.1); SODIUM LEVEL 145 MMOL/L (136-145)
[2022-03-23 08:00] VITALS: BP 148/70
[2022-03-23] MEDS: ENOXAPARIN 40MG/0.4ML SYRINGE (J1650 PER 10MG) SC SCH (09:08)
[2022-03-23] MEDS: MULTIVITAMINS/MINERALS THERAP 1 TAB PO SCH (09:08)
[2022-03-23] MEDS: FERROUS SULFATE 325MG TAB PO SCH (09:08)
[2022-03-23] MEDS ORDERED: ASPI81TAEC PO (11:07)
[2022-03-23] MEDS ORDERED: MECL-86 PO (11:07)
[2022-03-23] MEDS: ASPIRIN 81MG ENTERIC TABLET PO SCH (11:41)
[2022-03-23 11:47] VITALS: BP_SYST 144; BP_SYST 148; BP_DIAS 66; BP_DIAS 70
[2022-03-23 12:00] VITALS: BP 144/66
[2022-03-23] MEDS: MECLIZINE 25 MG TABLET PO PRN (13:13)
[2022-03-23 16:00] VITALS: BP 135/65
[2022-03-23 20:00] VITALS: BP 152/68
[2022-03-24] VITALS: BP 115/58
[2022-03-24 04:00] VITALS: BP 128/60
[2022-03-24 05:40] LABS: HEMATOCRIT 34.7 % (36.0-47.0); HEMOGLOBIN 11.3 g/dl (12.0-15.5); MEAN CORPUSCULAR HEMOGLOBIN 30.1 pg (27.0-33.0); MEAN CORPUSCULAR HGB CONC 32.6 g/dl (32.0-36.5); MEAN CORPUSCULAR VOLUME 92.5 fl (80.0-96.0); PLATELET COUNT, AUTOMATED 237 10^3/uL (150-450); RED BLOOD COUNT 3.75 10^6/uL (4.00-5.40); WHITE BLOOD COUNT 5.2 10^3/uL (4.0-10.0)
[2022-03-24 06:05] LABS: BLOOD UREA NITROGEN 11 MG/DL (9-23); CALCIUM LEVEL 8.2 MG/DL (8.3-10.6); CARBON DIOXIDE LEVEL 26 MMOL/L (20-31); CHLORIDE LEVEL 110 MMOL/L (98-107); CREATININE FOR GFR 0.69 MG/DL (0.55-1.30); GLOMERULAR FILTRATION RATE > 60.0 (>32); GLUCOSE, FASTING 104 MG/DL (74-106); POTASSIUM SERUM 4.1 MMOL/L (3.5-5.1); SODIUM LEVEL 142 MMOL/L (136-145)
[2022-03-24 08:00] VITALS: BP 128/60
[2022-03-24 08:10] VITALS: BP 147/64
[2022-03-24] MEDS: ENOXAPARIN 40MG/0.4ML SYRINGE (J1650 PER 10MG) SC SCH (09:39)
[2022-03-24] MEDS: ASPIRIN 81MG ENTERIC TABLET PO SCH (09:39)
[2022-03-24] MEDS: MULTIVITAMINS/MINERALS THERAP 1 TAB PO SCH (09:39)
[2022-03-24] MEDS: MECLIZINE 25 MG TABLET PO PRN (09:39)
[2022-03-24] MEDS: FERROUS SULFATE 325MG TAB PO SCH (09:39)
[2022-03-24 10:54] VITALS: BP 145/74
[2022-03-24] MEDS ORDERED: ASPI81CH33 PO (12:05)
[2022-03-24] MEDS ORDERED: MECL1TAB31 PO (12:06)
== END 2022-03-24 13:18 | disposition home or self-care (01) | DRG 149 ==
LOC: M ED 03:02 → M ED INP 11:06 → ENRESERV 12:00 → M PCU 13:23
PROVIDERS: ADMIT Internal Medicine; ATTEND Internal Medicine
PROC: B246ZZZ Ultrasonography of Right and Left Heart (ICD-10-PCS; principal; 2022-03-23)
DX: H81.10 Benign paroxysmal vertigo, unspecified ear (principal); E87.20 Acidosis, unspecified; E78.5 Hyperlipidemia, unspecified; M81.0 Age-related osteoporosis without current pathological fracture; I35.0 Nonrheumatic aortic (valve) stenosis; K21.9 Gastro-esophageal reflux disease without esophagitis; R73.9 Hyperglycemia, unspecified; E86.0 Dehydration; Z20.822 Contact with and (suspected) exposure to COVID-19; Z79.899 Other long term (current) drug therapy; Z88.6 Allergy status to analgesic agent; Z90.49 Acquired absence of other specified parts of digestive tract

== ENCOUNTER → 2022-04-23 | Outpatient (CLI) | payer MEDICARE, OTHER ==
[~2022-04-23] MED LIST changes: +ASPI81CH33 PO; +ASPI81TAEC PO; +ATOR40TA75 PO; +MECL-86 PO; +MECL1TAB31 PO; +OYST500T12 PO; +VITA100093 PO
[2022-04-23 10:46] LABS: BASO % 0.5 % (0.0-1.0); EOS # 0.1 10^3/uL (0.0-0.5); EOS % 1.5 % (0.0-3.0); HEMATOCRIT 40.6 % (36.0-47.0); HEMOGLOBIN 13.3 g/dl (12.0-15.5); LYMPH # 2.4 10^3/uL (1.5-5.0); LYMPH % 37.8 % (24.0-44.0); MEAN CORPUSCULAR HGB CONC 32.8 g/dl (32.0-36.5); MEAN CORPUSCULAR VOLUME 91.6 fl (80.0-96.0); MONO # 0.5 10^3/uL (0.0-0.8); MONO % 7.6 % (2.0-8.0); NEUTROPHILS # 3.4 10^3/uL (1.5-8.5); NEUTROPHILS % 52.3 % (36.0-66.0); PLATELET COUNT, AUTOMATED 283 10^3/uL (150-450); RED BLOOD COUNT 4.43 10^6/uL (4.00-5.40); WHITE BLOOD COUNT 6.5 10^3/uL (4.0-10.0)
[2022-04-23 11:11] LABS: THYROID STIMULATING HORMONE 5.443 uIU/ML (0.55-4.78); TOTAL 25(OH) VITAMIN D 36.7 NG/ML (20.0-100.0)
[2022-04-23 11:12] LABS: ALBUMIN 4.3 G/DL (3.2-5.2); ALKALINE PHOSPHATASE 61 U/L (46-116); ALT/SGPT 31 U/L (7.0-40); AST/SGOT 22 U/L (<34); BILIRUBIN,TOTAL 0.7 MG/DL (0.3-1.2); BLOOD UREA NITROGEN 17 MG/DL (9-23); CALCIUM LEVEL 9.5 MG/DL (8.3-10.6); CARBON DIOXIDE LEVEL 29 MMOL/L (20-31); CHLORIDE LEVEL 106 MMOL/L (98-107); CHOLESTEROL LEVEL 151 MG/DL (<200); CHOLESTEROL RISK RATIO 2.68 (<5); CREATININE FOR GFR 0.72 MG/DL (0.55-1.30); GLOMERULAR FILTRATION RATE > 60.0 (>32); GLUCOSE, FASTING 117 MG/DL (74-106); HDL CHOLESTEROL 56.2 MG/DL (>40); NON-HDL-C 95 MG/DL; POTASSIUM SERUM 4.3 MMOL/L (3.5-5.1); SODIUM LEVEL 141 MMOL/L (136-145); TOTAL PROTEIN 7.4 G/DL (5.7-8.2); TRIGLYCERIDES LEVEL 214 MG/DL (<150)
== END ==
LOC: M PLALAB 08:36
PROVIDERS: ATTEND Physician Assistant
DX: E78.2 Mixed hyperlipidemia (principal); R73.01 Impaired fasting glucose; E55.9 Vitamin D deficiency, unspecified

== ENCOUNTER → 2022-08-02 | Outpatient (CLI) | payer MEDICARE, OTHER ==
[2022-08-02 19:57] LABS: CALCIUM LEVEL 9.2 MG/DL (8.3-10.6)
[2022-08-02 20:00] LABS: TOTAL 25(OH) VITAMIN D 35.9 NG/ML (20.0-100.0)
== END ==
LOC: M PLALAB 14:03
PROVIDERS: ATTEND Internal Medicine Endocrinology, Diabetes & Metabolism
DX: M81.0 Age-related osteoporosis without current pathological fracture (principal); E55.9 Vitamin D deficiency, unspecified

== ENCOUNTER → 2022-12-24 | Outpatient (CLI) | payer MEDICARE, OTHER ==
[~2022-12-24] MED LIST changes: +MECL-209 PO; -MECL1TAB31 PO
== END ==
LOC: M WHC 13:39
PROVIDERS: ATTEND Family Medicine
DX: Z12.31 Encounter for screening mammogram for malignant neoplasm of breast (principal)

== ENCOUNTER → 2023-02-11 | Outpatient (CLI) | payer MEDICARE, OTHER ==
[2023-02-11 14:32] LABS: ALBUMIN 4.4 G/DL (3.2-5.2); ALKALINE PHOSPHATASE 58 U/L (46-116); ALT/SGPT 29 U/L (7.0-40); AST/SGOT 17 U/L (<34); BILIRUBIN,TOTAL 0.7 MG/DL (0.3-1.2); BLOOD UREA NITROGEN 10 MG/DL (9-23); CALCIUM LEVEL 10.6 MG/DL (8.3-10.6); CARBON DIOXIDE LEVEL 28 MMOL/L (20-31); CHLORIDE LEVEL 107 MMOL/L (98-107); CHOLESTEROL LEVEL 146 MG/DL (<200); CHOLESTEROL RISK RATIO 2.41 (<5); CREATININE FOR GFR 0.64 MG/DL (0.55-1.30); GLOMERULAR FILTRATION RATE > 60.0 (>32); GLUCOSE, FASTING 114 MG/DL (74-106); HDL CHOLESTEROL 60.5 MG/DL (>40); LDL CHOLESTEROL 45.1 MG/DL (<100); NON-HDL-C 85.5 MG/DL; POTASSIUM SERUM 4.4 MMOL/L (3.5-5.1); SODIUM LEVEL 143 MMOL/L (136-145); TOTAL PROTEIN 7.3 G/DL (5.7-8.2); TRIGLYCERIDES LEVEL 202 MG/DL (<150)
== END ==
LOC: M PLALAB 10:04
PROVIDERS: ATTEND Physician Assistant
DX: E78.2 Mixed hyperlipidemia (principal)

== ENCOUNTER → 2023-07-05 | Outpatient (CLI) | payer MEDICARE, OTHER ==
[~2023-07-05] MED LIST changes: +ONDA4TAB6 PO
[2023-07-05 13:59] LABS: HEMOGLOBIN 12.5 g/dl (12.0-15.5); MEAN CORPUSCULAR HGB CONC 32.9 g/dl (32.0-36.5); MEAN CORPUSCULAR VOLUME 91.3 fl (80.0-96.0); PLATELET COUNT, AUTOMATED 285 10^3/uL (150-450); RED BLOOD COUNT 4.16 10^6/uL (4.00-5.40); WHITE BLOOD COUNT 6.4 10^3/uL (4.0-10.0)
[2023-07-05 14:01] LABS: APPEARANCE, URINE HAZY (CLEAR); BACTERIA, URINE AUTO NEGATIVE (NEGATIVE); BILIRUBIN, URINE AUTO NEGATIVE (NEGATIVE); BLOOD, URINE BLOOD 1+ (NEGATIVE); COLOR, URINE YELLOW (YELLOW); GLUCOSE, URINE (UA) AUTO NEGATIVE (NEGATIVE); KETONE, URINE AUTO NEGATIVE (NEGATIVE); LEUKOCYTE ESTERASE, URINE AUTO NEGATIVE (NEGATIVE); NITRITE, URINE AUTO NEGATIVE (NEGATIVE); PROTEIN, URINE AUTO NEGATIVE (NEGATIVE); RBC, URINE AUTO 2 /HPF (0-3); SPECIFIC GRAVITY URINE AUTO 1.011 (1.002-1.035); SQUAMOUS EPITHELIAL CELL UR AU 0 /HPF (0-6); UROBILINOGEN, URINE AUTO 0.2 mg/dL (0.0-2.0); WBC, URINE AUTO 1 /HPF (0-3)
[2023-07-05 14:39] LABS: ALBUMIN 3.9 G/DL (3.2-5.2); ALKALINE PHOSPHATASE 83 U/L (46-116); ALT/SGPT 26 U/L (7.0-40); AST/SGOT 13 U/L (<34); BILIRUBIN,TOTAL 0.6 MG/DL (0.3-1.2); BLOOD UREA NITROGEN 13 MG/DL (9-23); CALCIUM LEVEL 10.7 MG/DL (8.3-10.6); CARBON DIOXIDE LEVEL 31 MMOL/L (20-31); CHLORIDE LEVEL 106 MMOL/L (98-107); CREATININE FOR GFR 0.77 MG/DL (0.55-1.30); GLOMERULAR FILTRATION RATE > 60.0 (>32); GLUCOSE, FASTING 105 MG/DL (74-106); POTASSIUM SERUM 4.4 MMOL/L (3.5-5.1); SODIUM LEVEL 141 MMOL/L (136-145); TOTAL PROTEIN 7.2 G/DL (5.7-8.2)
== END ==
LOC: M PLALAB 11:12
PROVIDERS: ATTEND Family Medicine
DX: M81.0 Age-related osteoporosis without current pathological fracture (principal); G47.33 Obstructive sleep apnea (adult) (pediatric)

== ENCOUNTER → 2024-01-01 | Outpatient (CLI) | payer MEDICARE, OTHER ==
[~2024-01-01] MED LIST changes: +ONDA-282 PO; -ONDA4TAB6 PO
== END ==
LOC: M WHC 13:34
PROVIDERS: ATTEND Family Medicine
DX: Z12.31 Encounter for screening mammogram for malignant neoplasm of breast (principal)

== ENCOUNTER → 2024-04-17 | Outpatient (CLI) | payer MEDICARE, OTHER ==
[2024-04-17 15:12] LABS: BASO % 0.7 % (0.0-1.0); EOS # 0.1 10^3/uL (0.0-0.5); EOS % 1.2 % (0.0-3.0); HEMATOCRIT 38.7 % (36.0-47.0); HEMOGLOBIN 12.6 g/dl (12.0-15.5); LYMPH # 1.9 10^3/uL (1.5-5.0); LYMPH % 32.3 % (24.0-44.0); MEAN CORPUSCULAR HEMOGLOBIN 29.8 pg (27.0-33.0); MEAN CORPUSCULAR HGB CONC 32.6 g/dl (32.0-36.5); MEAN CORPUSCULAR VOLUME 91.5 fl (80.0-96.0); MONO # 0.4 10^3/uL (0.0-0.8); MONO % 7.3 % (2.0-8.0); NEUTROPHILS # 3.3 10^3/uL (1.5-8.5); NEUTROPHILS % 58.3 % (36.0-66.0); PLATELET COUNT, AUTOMATED 285 10^3/uL (150-450); RED BLOOD COUNT 4.23 10^6/uL (4.00-5.40); WHITE BLOOD COUNT 5.7 10^3/uL (4.0-10.0)
[2024-04-17 15:18] LABS: ALBUMIN 4.2 G/DL (3.2-5.2); ALKALINE PHOSPHATASE 91 U/L (35-104); ALT/SGPT 24 U/L (7.0-40); AST/SGOT 15 U/L (<34); BILIRUBIN,TOTAL 0.5 MG/DL (0.3-1.2); BLOOD UREA NITROGEN 20 MG/DL (9-23); CALCIUM LEVEL 10.2 MG/DL (8.3-10.6); CARBON DIOXIDE LEVEL 26 MMOL/L (20-31); CHLORIDE LEVEL 108 MMOL/L (98-107); CHOLESTEROL LEVEL 236 MG/DL (<200); CHOLESTEROL RISK RATIO 3.86 (<5); CREATININE FOR GFR 0.72 MG/DL (0.55-1.30); GLOMERULAR FILTRATION RATE > 60.0 (>32); GLUCOSE, FASTING 112 MG/DL (74-106); POTASSIUM SERUM 4.5 MMOL/L (3.5-5.1); SODIUM LEVEL 143 MMOL/L (136-145); TOTAL PROTEIN 7.4 G/DL (5.7-8.2); TRIGLYCERIDES LEVEL 245 MG/DL (<150)
[2024-04-17 16:14] LABS: HEMOGLOBIN A1c 5.7 % (4.0-6.0)
== END ==
LOC: M PLALAB 08:02
PROVIDERS: ATTEND Student in an Organized Health Care Education/Training Program
DX: Z01.818 Encounter for other preprocedural examination (principal); E55.9 Vitamin D deficiency, unspecified; R73.01 Impaired fasting glucose; E78.2 Mixed hyperlipidemia

== ENCOUNTER → 2024-11-17 | Outpatient (CLI) | payer MEDICARE, OTHER ==
[~2024-11-17] MED LIST changes: +DENO60SY2 SC; -PROL60SO SC
[2024-11-17 15:02] LABS: ALT/SGPT 28.0 U/L (7.0-40); AST/SGOT 18.0 U/L (<34); CALCIUM LEVEL 9.3 MG/DL (8.3-10.6); CARBON DIOXIDE LEVEL 25.0 MMOL/L (20-31); CHLORIDE LEVEL 107.0 MMOL/L (98-107); CREATININE FOR GFR 0.72 MG/DL (0.55-1.30); GLOMERULAR FILTRATION RATE 82.4 (>32); POTASSIUM SERUM 4.3 MMOL/L (3.5-5.1); SODIUM LEVEL 139.0 MMOL/L (136-145); TOTAL 25(OH) VITAMIN D 34.3 NG/ML (20.0-100.0)
== END ==
LOC: M PLALAB 09:36
PROVIDERS: ATTEND Family Medicine
DX: M81.0 Age-related osteoporosis without current pathological fracture (principal)

== ENCOUNTER → 2025-01-18 | Outpatient (CLI) | payer MEDICARE, OTHER | LOC: M WHC 14:53 | PROVIDERS: ATTEND Family Medicine | DX: Z12.31 Encounter for screening mammogram for malignant neoplasm of breast (principal) ==

== ENCOUNTER → 2025-02-10 | Outpatient (CLI) | payer MEDICARE, OTHER ==
[2025-02-10 12:14] LABS: FREE T4 1.21 NG/DL (0.89-1.76)
== END ==
LOC: M LAB 11:07
PROVIDERS: ATTEND Physician Assistant
DX: L66.10 Lichen planopilaris, unspecified (principal); E07.9 Disorder of thyroid, unspecified